=== PATIENT | female | born 1990 | race Caucasian/White ===

== ENCOUNTER → 2019-01-30 13:19 | Outpatient (CLI) | payer MEDICAID, SELFPAY ==
[2019-01-30 11:07] VITALS: BMI 48.7
[2019-02-02 15:50] LABS: HPV Reflexed? NOT INDICATED
== END ==
PROVIDERS: Family Provider Family Medicine; PCP Nurse Practitioner Adult Health; Referring Provider Obstetrics & Gynecology; Visit Provider Obstetrics & Gynecology
DX: Z12.4 Encounter for screening for malignant neoplasm of cervix (principal)
CPT/HCPCS: 87624; 88175; G0145

== ENCOUNTER 2019-02-14 12:37 | Emergency (ER) | payer MEDICAID, SELFPAY ==
[2019-01-30 11:07] VITALS: BMI 48.7
[2019-02-14 12:38] VITALS: BP 168/103; PULSE 118; RESP 20; TEMP 37.2; O2SAT 96; BMI 45.4
[2019-02-14 12:54] VITALS: BP 124/86; PULSE 106; RESP 17; O2SAT 94
[2019-02-14 13:38] LABS: Absolute Lymphocyte Count 0.82 X10^3/ul (0.83-4.51); Absolute Neutrophil Count 7.8 X10^3/uL (2.0-7.7); Hematocrit 43.9 % (37-47); Hemoglobin 15.4 g/dl (12.0-15.0); Lymphocyte # 0.82 X10^3/ul (4.0); Lymphocyte % 8.8 % (19-41); Mean Corp Hgb Conc 35.1 g/gl (32-36); Mean Corpuscular Hgb 28.8 pg (27.0-32.0); Mean Corpuscular Volume 82.2 fL (81-99); Mean Platelet Vol. 9.7 fl (6.2-12.0); Monocyte# 0.72 X10^3/uL; Monocyte% 7.7 % (0-10); Neutrophil # 7.79 X10^3/uL (2.7-7.7); Neutrophil % 83.4 % (47-70); POSITIVE COUNT NO; POSITIVE DIFFERENTIAL NO; POSITIVE MORPHOLOGY NO; Platelet Count 209 K/mm3 (150-450); RBC Distribution Width CV 13.4 % (11.6-14.6); RBC Distribution Width SD 40.1 fl (35.1-43.9); Red Blood Count 5.34 M/mm3 (4.2-5.4); White Blood Count 9.3 K/mm3 (4.4-11.0)
[2019-02-14] MEDS: Ondansetron 4 MG/2 ML Vial IV (13:39)
[2019-02-14] MEDS: 0.9% Normal Saline 1,000 ML 150 ML IV (13:39)
[2019-02-14] MEDS: Morphine 4 MG/ML Syringe IV (13:39)
[2019-02-14 13:46] LABS: AST(SGOT) 17 U/L (15-37); Alanine Aminotransfer ALT/SGPT 27 U/L (13-56); Albumin, Serum 3.9 g/dL (3.2-5.0); Alkaline Phosphatase 75 U/L (45-117); Anion Gap 9 (5-15); BUN 12 mg/dL (7-18); BUN/Creat Ratio 12.3 RATIO (10-20); Bilirubin, Direct 0.14 mg/dL (0.00-0.30); Calcium,Total 9.1 mg/dL (8.5-10.1); Chloride 107 mmol/L (98-107); Creatinine, Serum 0.98 mg/dL (0.55-1.02); EST Glomerular Filtration Rate 73 mL/min (>60); Est Glom Filt Rate - Afr Amer 88 mL/min (>60); Estimated Creatinine Clearance 78.28 ml/min; Glucose 96 mg/dL (74-106); Lipase 169 U/L (73-393); Protein, Total 8.9 g/dL (6.4-8.2); Sodium Level 136 mmol/L (136-145)
[2019-02-14 14:27] LABS: Color, Urine Yellow (Yellow); Glucose, Dipstick Normal (Normal); Ketone-Dipstick 5 mg/dl (Negative); Leukocyte Esterase-Dipstick Negative /ul (Negative); Nitrite-Dipstick Negative (Negative); Occult Blood-Urine 10 /ul (Negative); Protein-Dipstick 30 mg/dl (Negative); Specific Gravity, Urine 1.025 (1.002-1.030); Urine Bilirubin Dipstick Negative (Negative); Urine Clarity Sl. Cloudy (Clear); Urine Urobilinogen Normal (Normal)
[2019-02-14 14:37] LABS: Bacteria 1+ /hpf (None Seen); Mucous, Urine 1+ /hpf (<or=2+); Red Blood Cells-Urine 0-5 SEEN /hpf (0-5); Squamous Epithelial Cells - UA 0-5 SEEN /hpf (5-10); White Blood Cells 0-5 SEEN /hpf (0-5)
[2019-02-14 15:26] VITALS: BP 140/78; PULSE 89; RESP 15; O2SAT 97
--- NOTE | 2019-02-14 15:34 | ED.VISSUMM ---
- ER Visit Summary Date of Service: 02/14/19 Chief Complaint: Abdominal pain History of Present Illness: The patient is a 28 F with mid abdominal pain for the past 3 days. She reports nausea, vomiting, and diarrhea. She states she did a fever of 99. She went to urgent care and was sent to the emergency room. Denies urinary symptoms. She has had prior cholecystectomy and a . Physical Examination: Blood pressure is 160/103, heart rate 118, respiratory rate 20. She is afebrile. Patient sitting upright in bed no acute distress. She is nontoxic appearing. Head neck examination is unremarkable. Heart is regular rate and rhythm. Lung sounds are clear. Abdomen is soft with mild tenderness in the epigastrium. There is no tenderness over the appendix. There is no guarding or rebound. Hypoactive but present bowel sounds are noted. Test Results: CBC was normal white count 9.3 with 83% neutrophils. Hemoglobin concentrated at 15.4. Chemistry studies significant for potassium of 3. Bicarb is 20. LFTs and lipase normal. Urinalysis shows 5 ketones but no sign of acute infection. Emergency Department Course and Treatment: Patient was given morphine, Zofran, and IV fluids. She was given oral potassium replacement. Multiple repeat examinations revealed no tenderness in the right lower quadrant. She will be discharged with Zofran, Bentyl, and potassium chloride. Treatment Plan: [] Disposition: Discharge Impression: 1. Viral gastroenteritis 2. Hypokalemia This note was generated with [employer] dictation software. It may contain incorrect words, spelling, and punctuation that were not noted in review of the chart prior to signing ED Disposition - Plan for ED Patient: Disposition: Home or Assisted Living Instructions: ED Gastroenteritis Viral, ED Potassium Deficiency Prescriptions: Ondansetron [Zofran Odt] 4 mg PO Q8H PRN PRN #10 tablet PRN Reason: Nausea Dicyclomine HCl [Bentyl] 20 mg PO TIDAC #20 capsule Potassium Chloride [K-Dur] 20 meq PO BID #10 tablet Referrals: Sonia Davila MD [Primary Care Provider] - 1 Week
[2019-02-14 15:47] VITALS: BP 141/84; PULSE 85; RESP 16; O2SAT 99
== END 2019-02-14 15:47 | disposition home or self-care (01) ==
PROVIDERS: Emergency Provider Emergency Medicine; Family Provider Internal Medicine; PCP Internal Medicine
DX: A08.4 Viral intestinal infection, unspecified (principal); E87.6 Hypokalemia; Z90.49 Acquired absence of other specified parts of digestive tract
CPT/HCPCS: 80048; 80076; 81001; 83690; 85025; 96361; 96374; 96375; 99283; J7030; A4216; J2405

== ENCOUNTER 2019-08-24 14:11 | Emergency (ER) | payer MEDICAID, SELFPAY ==
[2019-08-24 14:11] VITALS: BP 137/76; PULSE 115; RESP 14; TEMP 36.1; O2SAT 97; BMI 49.9
[2019-08-24 14:36] VITALS: PULSE 119; RESP 16; O2SAT 100
[2019-08-24 14:38] LABS: Mucous, Urine 0 SEEN /hpf (<or=2+); Red Blood Cells-Urine 0 SEEN /hpf (0-5)
[2019-08-24 14:40] LABS: Color, Urine Yellow (Yellow); Glucose, Dipstick Normal (Normal); Ketone-Dipstick 5 mg/dl (Negative); Leukocyte Esterase-Dipstick 25 /ul (Negative); Nitrite-Dipstick Negative (Negative); Occult Blood-Urine Negative /ul (Negative); Protein-Dipstick Negative (Negative); Specific Gravity, Urine 1.025 (1.002-1.030); Urine Bilirubin Dipstick Negative (Negative); Urine Clarity Clear (Clear); Urine Urobilinogen Normal (Normal)
[2019-08-24 14:44] LABS: Internal QC Validated? YES +Cl - CLEAR BKGD; Pregnancy, Urine Negative Negative
[2019-08-24 14:52] LABS: Bacteria 1+ /hpf (None Seen); Squamous Epithelial Cells - UA 5-10 SEEN /hpf (5-10); White Blood Cells 0-5 SEEN /hpf (0-5)
--- NOTE | 2019-08-24 15:11 | RAD_ITS ---
STUDY: X-RAY CHEST REASON FOR EXAM: Female, 28 years old. TECHNIQUE: 2 views COMPARISON: None. FINDINGS: The lungs are clear and expanded. There is no demonstrated pleural abnormality. Normal size heart. Normal mediastinum and esha. Normal visualized pulmonary arteries. Normal visualized aortic arch and descending thoracic aorta. Normal visualized thoracic spine. Normal visualized ribs, clavicles, and shoulders. There is no demonstrated abnormality of the visualized soft tissue structures of the upper abdomen. RAD/Chest PA and Lateral IMPRESSION: Normal x-ray examination of the chest. Electronically Signed: Quan Ramirez, at 16:15 EST Tel , Service support ,
--- NOTE | 2019-08-24 15:55 | ED.VISSUMM ---
- ER Visit Summary Date of Service: 08/24/19 Chief Complaint: Abdominal pain and cough History of Present Illness: The patient is a [address] [facility]. She reports that she has suprapubic abdominal pain that began 3 days ago. Is a sharp pain 7 out of 10 currently and 10 out of 10 at worst. Is increased by laying on her back or right side. She decreased by hot bath. She reports is been nauseated, but has not vomited. She had a normal appetite. She had 4 episodes of diarrhea today. No blood in her stools or black tarry stools. No dysuria or frequency. Last menstrual period was 31 days ago. She does not have a history of irregular periods. She denies any vaginal bleeding or discharge. Patient denies sick contacts. Has not been camping out of the country. No possible bad food exposure. Does not drink well water. No recent antibiotic use. Patient also reports she has had lower back pain for the past 3 days. She denies any fall, MVA, or change in activity. She reports pain is 6 out of 10 currently 10 out of 10 at worst. Is increased movement or laying down. Is decreased hot bath. There is no radiation to her legs. No numbness, tingling, or weakness in her legs. No groin numbness. No problems with her bowels or bladder. Patient also reports she has a cough began 5 days ago. Is productive green sputum without blood. She denies any fever, chills, shortness of breath, chest pain, or other complaints at this time. Physical Examination: Vitals: Stable. Afebrile. General: Well-nourished and well-developed. Head: Normocephalic atraumatic. Neck: Supple, no lymphadenopathy. No JVD. Nontender. Cardiovascular: Regular rate and rhythm. No murmurs. Respiratory: No respiratory distress. Clear to auscultation bilaterally. Abdominal: Soft, mild suprapubic tenderness to palpation, nondistended, normal bowel sounds. No guarding, rebound, or peritoneal signs. Back: Mild diffuse tenderness palpation over the lumbar spine and paraspinous muscular and lumbar region bilaterally. Negative straight leg raise bilaterally. 5 out of 5 dorsiflexion, plantar flexion, extensor longus longus bilaterally. Normal sensation light touch throughout. Extremities: Nontender, no edema. Skin: Normal color, no rash. Neurologic: Alert and oriented ?3. Cranial nerves II through XII are intact. Normal strength and sensation. Psych: Normal affect. Test Results: Patency test is negative. Urinalysis is negative. Chest x-ray shows no acute disease. Emergency Department Course and Treatment: Patient refused pain or nausea medications. She is resting comfortably. Treatment Plan: Patient be discharged with symptomatic care. She refused pain or nausea medicine for home. Instructed to push fluids. Follow-up with her primary care physician 1 to 2 days if not improving. Return to the emergency department for any worsening symptoms. Disposition: To home in improved and stable condition. Impression: 1. Abdominal pain, uncertain cause. 2. Low back pain ,acute. 3. URI. This note was generated with [employer] dictation software. It may contain incorrect words, spelling, and punctuation that were not noted in review of the chart prior to signing ED Disposition - Plan for ED Patient: Instructions: ABDOMINAL PAIN, Unknown Cause, (Female), URI, Viral, No Abx (Adult) Referrals: Sonia Davila MD [Primary Care Provider] - 1-2 Days if not improving
[2019-08-24 16:13] VITALS: PULSE 105; RESP 16; O2SAT 98
[2019-08-24 16:14] VITALS: RESP 16
--- NOTE | 2019-08-24 16:14 | ED.RN ---
REVIEWED D/C INSTRUCTIONS, FOLLOW UP CARE, AND S/S THAT WOULD WARRANT A RETURN TO THE ED WITH PT. PT VERBALIZED AN UNDERSTANDING AND DENIES FURTHER QUESTIONS FOR THIS RN. PT SKIN P/W/D, RESP EVEN AND UNLABORED, PT A&O X 3, NO DISTRESS NOTED. PT AMBULATED OUT OF ED, GAIT STEADY.
== END 2019-08-24 16:15 | disposition home or self-care (01) ==
LOC: ED 14:58
PROVIDERS: Emergency Medicine; Emergency Provider Emergency Medicine; Family Provider Internal Medicine; PCP Internal Medicine
DX: R10.9 Unspecified abdominal pain (principal); M54.5 Low back pain; J06.9 Acute upper respiratory infection, unspecified; J45.909 Unspecified asthma, uncomplicated; Z90.49 Acquired absence of other specified parts of digestive tract; R19.7 Diarrhea, unspecified; R11.0 Nausea
CPT/HCPCS: 71046; 81001; 81025; 99282

== ENCOUNTER 2020-04-25 17:05 | Outpatient (CLI) | payer MEDICAID, SELFPAY ==
[2019-10-17 13:16] VITALS: BMI 49.9
[2020-04-25 17:28] VITALS: BMI 52.6
[2020-04-25 17:31] VITALS: BP 135/64; TEMP 37
[2020-04-25 17:32] VITALS: PULSE 120; O2SAT 96
[2020-04-25 17:54] LABS: Color, Urine Yellow (Yellow); Glucose, Dipstick Normal (Normal); Ketone-Dipstick Negative (Negative); Leukocyte Esterase-Dipstick 25 /ul (Negative); Nitrite-Dipstick Negative (Negative); Occult Blood-Urine Negative /ul (Negative); Protein-Dipstick Negative (Negative); Urine Bilirubin Dipstick Negative (Negative); Urine Clarity Clear (Clear); Urine Urobilinogen Normal (Normal)
--- NOTE | 2020-04-25 18:27 | OB.TRI.HP_ITS ---
- Problem List (1) Pelvic pressure in Status: Acute (2) 34 weeks gestation of Status: Acute History of Present Illness Date of Service: 04/25/20 Reason For Visit: PELVIC PRESSURE Date of Service: 04/25/20 Final DION: 06/02/20 Gestational age: 34 Weeks and 4 Days History of Present Illness: Patient is at 34.4 weeks gestation that is is repeat c/s that presents with increased pelvic pressure and pain starting today around 1600. Denies any loss of fluid, vaginal bleeding or cramping. Stated just feels lower pelvic heaviness. Positive movement. Allergies codeine Adverse Reaction (Verified 08/24/19 14:15) Other hallucinations - Pertinent Past Medical History Medical History: Past Medical History (Last Reviewed 01/30/19 @ 11:06 by Graciela Crandall) PCOS (polycystic ovarian syndrome) Surgical History: Past Surgical History (Last Reviewed 01/30/19 @ 11:06 by Graciela Crandall) delivery delivered H/O knee surgery History of tonsillectomy gallbladder surgery Laboratory Studies: Laboratory Tests 04/25/20 Range/Units 17:20 Urine Color Yellow (Yellow) Urine Clarity Clear (Clear) Urine pH 5.0 (5.0 - 8.0) Ur Specific [place] 1.030 (1.002-1.030) Urine Protein Negative (Negative) mg/dl Urine Glucose (UA) Normal (Normal) mg/dl Urine Ketones Negative (Negative) mg/dl Urine Occult Blood Negative (Negative) /ul Urine Nitrite Negative (Negative) Urine Bilirubin Negative (Negative) mg/dL Urine Urobilinogen Normal (Normal) mg/dl Ur Leukocyte Esterase 25 H (Negative) /ul Review of Systems Constitutional: Denies: Anorexia, Fever Eyes: Denies: Blurred vision Cardiovascular: Denies: Chest Pain Respiratory: Denies: Cough, Shortness of Breath Genitourinary: Reports: Frequency Neurological: Denies: Blurred vision, Headaches Physical Exam Vitals: Vital Signs Pulse BP Pulse Ox 120 H 135/64 H 96 04/25/20 17:32 04/25/20 17:31 04/25/20 17:32 General: Alert, Oriented x3 Cardiovascular: Regular rate Lungs: Normal air movement Abdomen: Soft, Non Tender, Gravid Neurological: Cranial nerves II-XII grossly intact NST - FHR Rate Baby A Baseline: 140 Variability:: Moderate Accelerations:: 15 x 15 Decelerations:: None NST Reactive:: Yes FHR Category:: Category I Uterine Activity:: No contractions noted Impression/Plan at 34.4 weeks gestation with pelvic pressure NST- reactive and category 1 No contractions seen via TOCO or palpated UA sent - Positive for Leuk Esterase/ Sent for culture Will treat with Macrobid 100 mg PO BID x 7 days Increase fluid intake Discharge home and follow up in office Patient agrees with plan of care
== END 2020-04-25 18:30 | disposition home or self-care (01) ==
LOC: WPOUT 17:06 → WP 17:07
PROVIDERS: PCP Internal Medicine; Referring Provider Advanced Practice Midwife; Visit Provider Advanced Practice Midwife
DX: O99.283 Endocrine, nutritional and metabolic diseases complicating pregnancy, third trimester (principal); E28.2 Polycystic ovarian syndrome; Z3A.34 34 weeks gestation of pregnancy; Z88.5 Allergy status to narcotic agent
CPT/HCPCS: 59025; 59050; 81002; 87086; 87088; 99218; G0378

== ENCOUNTER 2020-05-08 11:27 | Emergency (ER) | payer MEDICAID, SELFPAY ==
[2020-05-08 11:28] VITALS: BP 152/84; PULSE 119; RESP 19; TEMP 36.3; O2SAT 95; BMI 53.8
--- NOTE | 2020-05-08 12:01 | ED.DCSUM_ITS ---
- ER Visit Summary Date of Service: 05/08/20 Chief Complaint: [Injury to right small finger] History of Present Illness: The patient is a 29 F [presents to the emergency department for laceration to her right small finger that occurred about 10 minutes prior to arrival in the emergency department. Patient states that she try to catch a glass that was falling and it shattered and the glass cut her finger. Patient is up-to-date on tetanus. 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 Patient has one other child and did not have any complications with that .] Physical Examination: [Right small finger-patient has a 1.5 cm laceration to the volar aspect of the distal phalanx pulp. There is some brisk bleeding noted from the wound. She is neurovascular intact distally. She has normal range of motion at the DIP and PIP joints against resistance.] Test Results: [Indicated] Emergency Department Course and Treatment: [Duration repair-patient had finger sterilely draped and prepped. Wound anesthetized locally with 2% lidocaine via digital block with a total of 6 cc. Patient had good anesthesia. Wound was cleansed with Shur-Clens and irrigated with copious saline. I did use a turnicot to obtain good hemostasis. The wound was inspected and no foreign bodies noted within the wound. There is no evidence of any tendon involvement. Using 5-0 nylon a total of 3 single ruptured sutures placed with good wound edge approximation. Patient tired procedure well. Clean dressing applied.] Treatment Plan: [] Patient to follow-up with primary care physician in 10 days for suture removal. Patient advised to return if increasing pain, redness, swelling, purulent drainage, or condition should worsen anyway. Disposition: [Discharged home in stable condition] Impression: [Right small finger laceration 1.5 cm-simple repair] This note was generated with [employer] dictation software. It may contain incorrect words, spelling, and punctuation that were not noted in review of the chart prior to signing ED Disposition - Plan for ED Patient: Referrals: Sonia Davila MD [Primary Care Provider] -
--- NOTE | 2020-05-08 12:04 | ED.DEP ---
ED Disposition - Plan for ED Patient: Instructions: ED Laceration Hand Referrals: Sonia Davila MD [Primary Care Provider] - 10 Day for suture removal
[2020-05-08 12:24] VITALS: RESP 18
== END 2020-05-08 12:20 | disposition home or self-care (01) ==
LOC: ED 12:21
PROVIDERS: Emergency Provider Emergency Medicine; PCP Internal Medicine
DX: O9A.211 Injury, poisoning and certain other consequences of external causes complicating pregnancy, first trimester (principal); S61.216A Laceration without foreign body of right little finger without damage to nail, initial encounter; O21.9 Vomiting of pregnancy, unspecified; W25.XXXA Contact with sharp glass, initial encounter; Z3A.01 Less than 8 weeks gestation of pregnancy
CPT/HCPCS: 12001; 80053; 84550; 85025; 86850; 86900; 86901; J7120; A4216; J2405

== ENCOUNTER 2020-05-09 08:39 | Inpatient (IN) | payer MEDICAID, SELFPAY ==
[2019-10-17 13:16] VITALS: BMI 49.9
[2020-05-08 11:28] VITALS: BMI 53.8
[2020-05-08 21:08] VITALS: BP 135/78; PULSE 118
[2020-05-08 21:09] VITALS: PULSE 114; O2SAT 96
[2020-05-08 21:10] VITALS: TEMP 37
[2020-05-08 21:17] VITALS: BMI 53.4
[2020-05-08] MEDS: 0.9% Saline Lock 10 ML Syringe IV ×3 (21:52→23:34)
[2020-05-08] MEDS: Acetaminophen 500 MG Tablet PO (21:57)
[2020-05-08 22:01] VITALS: BP 130/78; PULSE 115
[2020-05-08 22:02] LABS: Absolute Lymphocyte Count 1.81 X10^3/uL (0.83-4.51); Absolute Neutrophil Count 7.2 X10^3/uL (2.0-7.7); Basophil# 0.02 X10^3/uL; Basophil% 0.2 % (0-1); Eosinophil# 0.08 X10^3/uL; Eosinophils% 0.8 % (0-5); Hematocrit 35.4 % (37-47); Hemoglobin 11.7 g/dL (12.0-15.0); Lymphocyte # 1.81 X10^3/ul (4.0); Lymphocyte % 18.1 % (19-41); Mean Corp Hgb Conc 33.1 g/dL (32-36); Mean Corpuscular Hgb 27.6 pg (27.0-32.0); Mean Corpuscular Volume 83.5 fL (81-99); Mean Platelet Vol. 10.4 fl (6.2-12.0); Monocyte# 0.71 X10^3/uL; Monocyte% 7.1 % (0-10); NRBC Flagged by Analyzer 0 % (0-5); Neutrophil # 7.24 X10^3/uL (2.7-7.7); Neutrophil % 72.3 % (47-70); Platelet Count 228 K/mm3 (150-450); RBC Distribution Width CV 15.5 % (11.6-14.6); RBC Distribution Width SD 46.4 fl (35.1-43.9); Red Blood Count 4.24 M/mm3 (4.2-5.4)
[2020-05-08] MEDS: Mag Hydrox/Al Hydrox/Simeth 30 ML UDC PO (22:04)
[2020-05-08 22:19] LABS: ALB/GLOB Ratio 0.7 RATIO (0.9-2.4); AST(SGOT) 9 U/L (15-37); Alanine Aminotransfer ALT/SGPT 15 U/L (13-56); Albumin, Serum 2.7 g/dL (3.2-5.0); Alkaline Phosphatase 111 U/L (45-117); Anion Gap 10 (5-15); BUN 6 mg/dL (7-18); Calcium,Total 8.6 mg/dL (8.5-10.1); Chloride 110 mmol/L (98-107); EST Glomerular Filtration Rate 203 mL/min (>60); Est Glom Filt Rate - Afr Amer 246 mL/min (>60); Estimated Creatinine Clearance 182.43 ml/min; Globulin 3.9 g/dL (2.2-4.2); Glucose 103 mg/dL (74-106); Potassium 3.2 mmol/L (3.5-5.1); Protein, Total 6.6 g/dL (6.4-8.2); Sodium Level 142 mmol/L (136-145); Uric Acid 4.7 mg/dL (2.6-6.0)
[2020-05-08] MEDS: proMETHazine 25 MG/ML Syringe 12.5 MG IV (23:30)
[2020-05-08 23:38] VITALS: BP 111/58; PULSE 102; PULSE 103; RESP 20; TEMP 36.9; O2SAT 95
[2020-05-09] VITALS (33 sets, daily range): BP systolic 104–139; BP diastolic 52–76; PULSE 90–113; RESP 12–18; TEMP 36.2–37.4; O2SAT 75–100
[2020-05-09] MEDS: Acetaminophen 500 MG Tablet 1000 MG PO ×3 (03:59→21:25)
[2020-05-09] MEDS: proMETHazine 25 MG/ML Syringe 12.5 MG IV (05:40)
[2020-05-09] MEDS: 0.9% Saline Lock 10 ML Syringe IV ×3 (05:40→21:28)
[2020-05-09 06:22] LABS: Absolute Lymphocyte Count 1.73 X10^3/uL (0.83-4.51); Absolute Neutrophil Count 5.8 X10^3/uL (2.0-7.7); Basophil# 0.03 X10^3/uL; Basophil% 0.4 % (0-1); Eosinophils% 1.2 % (0-5); Hematocrit 33.5 % (37-47); Lymphocyte # 1.73 X10^3/ul (4.0); Lymphocyte % 20.5 % (19-41); Mean Corp Hgb Conc 32.8 g/dL (32-36); Mean Corpuscular Hgb 27.1 pg (27.0-32.0); Mean Corpuscular Volume 82.5 fL (81-99); Mean Platelet Vol. 10.1 fl (6.2-12.0); Monocyte# 0.66 X10^3/uL; Monocyte% 7.8 % (0-10); NRBC Flagged by Analyzer 0 % (0-5); Neutrophil # 5.79 X10^3/uL (2.7-7.7); Neutrophil % 68.4 % (47-70); Platelet Count 195 K/mm3 (150-450); RBC Distribution Width CV 15.4 % (11.6-14.6); RBC Distribution Width SD 45.7 fl (35.1-43.9); Red Blood Count 4.06 M/mm3 (4.2-5.4); White Blood Count 8.5 K/mm3 (4.4-11.0)
[2020-05-09 06:57] LABS: ALB/GLOB Ratio 0.7 RATIO (0.9-2.4); AST(SGOT) 8 U/L (15-37); Alanine Aminotransfer ALT/SGPT 12 U/L (13-56); Albumin, Serum 2.6 g/dL (3.2-5.0); Alkaline Phosphatase 101 U/L (45-117); Anion Gap 7 (5-15); BUN 7 mg/dL (7-18); BUN/Creat Ratio 17.6 RATIO (10-20); Calcium,Total 8.5 mg/dL (8.5-10.1); Chloride 109 mmol/L (98-107); EST Glomerular Filtration Rate 205 mL/min (>60); Est Glom Filt Rate - Afr Amer 247 mL/min (>60); Estimated Creatinine Clearance 182.43 ml/min; Globulin 3.7 g/dL (2.2-4.2); Glucose 92 mg/dL (74-106); Potassium 3.2 mmol/L (3.5-5.1); Protein, Total 6.3 g/dL (6.4-8.2); Sodium Level 139 mmol/L (136-145); Uric Acid 5.1 mg/dL (2.6-6.0)
[2020-05-09] MEDS: Lactated Ringers 1,000 ML 999 ML IV (08:48)
[2020-05-09] MEDS: Sodium Citrate/Citric Acid 30 ML UDC PO (09:14)
--- NOTE | 2020-05-09 10:29 | OP.PCM_ITS ---
Delivery Classification: Scheduled Final DION: 06/02/20 Final DION Source: US <20 weeks Gestational age: 36 Weeks and 4 Days counter stitcher: Robbie Keen Type of Anesthesia:: Spinal Special Medications: none Implants Used: none Date of Procedure: 05/09/20 Pre-Operative Diagnosis: 36 week high risk pregancy, previous c/s, preeclampsia with severe feature, breech Post-Operative Diagnosis: same Description of Procedure: The patient was taken to the operating room. She was prepped and draped in the dorsal supine position with a leftward tilt. Cohen straps were used to help retract the maternal pannus. A Pfannenstiel skin incision was made through her previous incision and carried through to underlying layer fascia with the scalpel. The fascia was incised incised in the midline and extended laterally with the Rothman scissors. The fascia was dissected off the rectus muscles with blunt and sharp dissection. Some bleeding blood vessels were clamped and bovied as we needed to help maintain hemostasis as well as possible in an efficient man ner. The rectus muscles were in the midline and the peritoneum was entered bluntly. The peritoneal incision was stretched and the bladder blade was placed. Fetus was palpated and confirmed to be breech. I then made small incisions on both sides of the rectus muscles to allow more room for delivery. When adequate room was obtained, the Gian O retractor size large was placed in the maternal abdomen, care was taken to ensure no maternal organs were trapped underneath. It was secured. The uterine incision was made in a low transverse fashion with the scalpel and extended superiorly and inferiorly with blunt dissection. The amniotic membranes were ruptured bluntly and clear amniotic fluid returned. The infant's breech was brought to the incision and delivered. The legs were swept out individually. A towel was placed around the abdomen and the arms were swept out individually. The head was then easily able to be delivered with fundal pressure and my hand placed on the head to keep it flexed. The cord was clamped and cut as the was stimulated. Cord clamping was delayed only 30 seconds. The infant was handed off to the waiting nursing staff. The placenta was delivered with fundal massage and gentle traction in the standard fashion. The uterus left in the peritoneal cavity and cleared of all clots and debris. The cervix was dilated with a ring forcep. The uterine incision was closed with #1 Vicryl in a running locked fashion. A second layer of the same suture was used in an imbricating fashion. [id number] sutures were needed to obtain hemostasis. The incision was examined and was found to be hemostatic. Wrist was placed over this layer. The Gian O retractor was removed. The uterus was placed back into the peritoneal cavity and hemostasis was again confirmed. The rectus muscles were examined and any bleeding was Bovie cauterized. The parietal peritoneum and rectus muscles were closed en bloc with an 0 Vicryl running suture. R[place]ow was placed over every layer as we proceeded and care was taken to obtain excellent hemostasis. The surgical teams outer gloves were then changed. The rectus fascia was examined and any bleeding was Bovie cauterized and the rectus fascia was closed with 1 PDS looped suture in a running standard fashion. The subcutaneous tissue was examining and any bleeding was Bovie cauterized. The subcutaneous tissue was reapproximated with 3-0 Vicryl suture. The skin was closed in a subcuticular fashion by the LOG DATA TECHNICIAN with me present in the labor and delivery suite. I performed the remainder of the procedure with assistance. All sponge, lap, and needle counts were correct. The patient was taken to her room for recovery in a stable condition. Amniotic Membrane Rupture Type: Artificial Amniotic Fluid Description: Clear Placenta Disposition: Sent to Pathology Drain: Rudolph to straight drain Fluids Replaced: 1400 Cord Entanglement: Around neck x 1, loose Nuchal Cord Compression: Without compression Cord Vessel Description: 3 Vessels Esitmated Blood Loss (ml): 1000 Infant Gender: Male Delayed cord clamping: Yes Antibiotic Given: Ancef 3 grams IV x1, Zithromax 500 mg/5 mL X1 Complications: None - Admit VTE Documentation VTE Present on Admission: No VTE Mechan Device Prophylaxis: SCD's VTE Pharm Prophylaxis ordered?: Yes
[2020-05-09] MEDS: Oxytocin 30 units/NS 500 ml 30 UNITS/500 ML IV.SOLN 167 UNITS IV (10:45)
--- NOTE | 2020-05-09 11:46 | HP.PCM_ITS ---
History Date of Admission: 05/08/20 Final DION: 06/02/20 Final DION Source: US <20 weeks Gestational age: 36 Weeks and 4 Days History of this : This is a 29 year-old 2 para 1 admitted on 05/08/2020 with complaints of a headache. She was seen in earlier in the office that day and her blood pressure was found to be mildly elevated. She had preeclampsia labs drawn. She had no evidence of preeclampsia at that time. She then went into the emergency room to have her finger sutured and complained of some increased blood pressure. She then arrived to labor and delivery later that evening complaining of a severe headache of 9 out of 10 despite taking 500 mg of Tylenol. She also complained of nausea without emesis, and some right upper quadrant pain. She states that it would last 10 seconds at a time and be sharp and stabbing. Overnight, the patient said she had trouble sleeping for more than 4 hours because of her headache. She reports a global headache and she feels like it is throbbing and pounding. She continues to have mid upper abdominal pains that are sharp and stabbing intermittently for 10 seconds. She denies being hungry and still has some mild nausea. She has not had any emesis. Denies any diarrhea or const ipation. She is had good movement. She states that her headache remains an 8 or 9 out of 10 this morning and when I walk in the room and start talking to her she becomes tearful. Medical History: Medical History (Last Reviewed 01/30/19 @ 11:06 by Graciela Crandall) PCOS (polycystic ovarian syndrome) E28.2 Surgical History: Surgical History (Last Reviewed 01/30/19 @ 11:06 by Graciela Crandall) delivery delivered O82 H/O knee surgery Z98.890 History of tonsillectomy Z98.890, Z90.89 gallbladder surgery Allergies codeine Adverse Reaction (Verified 05/08/20 11:28) Other hallucinations Home Medications: Home Medications Pnv No.95/Ferrous Fum/Folic AC [ Caplet] 1 ea PO DAILY 08/24/19 Famotidine [Pepcid] 20 mg PO PRN PRN 04/25/20 Loratadine [Claritin] 10 mg PO DAILY 04/25/20 Smoking Status: Never smoker Number of Fetus(es): 1 NST - FHR Rate Baby A Baseline: normal Variability:: Moderate Accelerations:: 15 x 15 Decelerations:: None NST Reactive:: Yes FHR Category:: Category I Uterine Activity:: quiet History Past Pregnancies: Past Pregnancies Delivery Date Name GA/ Weeks Outcome Route Wt Infant Sex Labor Length Anesthesia Delivery Location Provider FOB Expected Infant Delivery Method: Scheduled Section Review of Systems Constitutional: Denies: Chills, Fever Eyes: Reports: Blurred vision Cardiovascular: Denies: Chest Pain Respiratory: Denies: Cough, Shortness of Breath Gastrointestinal: Reports: Abdominal Pain, Nausea. Denies: Vomiting Genitourinary: Denies: Dysuria, Frequency Gynecological: Denies: Breast symptoms Skin: Denies: Rash Neurological: Reports: Headaches. Denies: Balance problems, Blurred vision, Ch thien in Speech, Slurred speech, Confusion, Seizures Hematologic/ Lymphatic: Denies: Anemia Physical Exam Vitals: Vital Signs Temp Pulse Resp BP Pulse Ox 97.2 F L 104 H 14 116/60 93 05/09/20 11:00 05/09/20 11:00 05/09/20 11:00 05/09/20 11:00 05/09/20 11:00 General: Alert, Cooperative, No apparent distress Cardiovascular: Regular rate Lungs: Normal air movement Abdomen: Soft, Non Tender, Non-Distended, Gravid, - - large for gestational age Neurological: Cranial nerves II-XII grossly intact, - - DTRs 1+. Negative for: Neuro grossly intact, Facial Droop, Slurred Speech, Clonus BIOFUELS PROCESSING TECHNICIAN: Normal external genitalia Estimated gestational size: Appropriate for gestational size Presentation: Breech Assessment/Plan All Active Problems (Last Reviewed 01/30/19 @ 11:06 by Graciela Crandall) Pelvic pressure in (Acute) 34 weeks gestation of (Acute) Pre-employment examination (Acute) Upper abdominal pain (Acute) Nausea and vomiting (Acute) This is a 29 year-old, 2 para 1 with morbid obesity with BMI 53, diagnosed with gestational hypertension yesterday. However, in light of patient's severe headache the working diagnosis will be preeclampsia with severe features. Though patient is late , I discussed with her risk benefits and alternatives to her repeat section including risks of prematurity. However, in light of her persistent severe headache, the prudent thing to deliver because of risk of preeclampsia outweigh the risks of prematurity. The patient's questions were answered to her satisfaction, consent was signed and she desired to proceed.
[2020-05-09] MEDS: Lactated Ringers 1,000 ML 50 ML IV (12:40)
[2020-05-09] MEDS: Magnesium Sulfate 4gm/100mL 4 GM/100 ML IV.SOLN. IV (12:40)
[2020-05-09] MEDS: Magnesium Sulfate 4gm/100mL 2 GM/50 ML IV.SOLN. IV (13:00)
[2020-05-09] MEDS: Magnesium Sulfate 20 GM/500 ML BAG IV ×2 (13:10→22:08)
[2020-05-09] MEDS: Ketorolac 30 MG/ML Syringe IV ×2 (16:26→21:27)
--- NOTE | 2020-05-09 20:23 | NURSING ---
1999- Pt. reported drinking a cranberry juice and Coke with her dinner when this RN questioned her oral input from the past hour. That total was approx. 320 mL. This RN educated the importance of oral fluid restriction of 100mL that the doctor ordered. Volutainer was given to pt. to more accurately measure 100mL of fluids per hour. Pt. verbalizes understanding. This RN will continue to monitor strict I&Os.
[2020-05-09] MEDS: Enoxaparin 40 MG/0.4 ML Syringe SC (21:28)
[2020-05-10] VITALS (13 sets, daily range): BP systolic 97–131; BP diastolic 41–79; PULSE 81–97; RESP 15–18; TEMP 36.1–36.4; O2SAT 95–100
[2020-05-10] MEDS: Acetaminophen 500 MG Tablet 1000 MG PO ×4 (03:10→21:36)
[2020-05-10] MEDS: Ketorolac 30 MG/ML Syringe IV ×2 (03:11→09:14)
[2020-05-10] MEDS: 0.9% Saline Lock 10 ML Syringe IV ×4 (03:11→19:51)
--- NOTE | 2020-05-10 04:21 | NURSING ---
0421: Failed attempt at CBC draw, lab called to assist.
[2020-05-10] MEDS: Lactated Ringers 1,000 ML 50 ML IV (06:44)
[2020-05-10] MEDS: Magnesium Sulfate 20 GM/500 ML BAG IV (07:20)
[2020-05-10 08:30] LABS: Hematocrit 31.9 % (37-47); Hemoglobin 10.5 g/dL (12.0-15.0); Mean Corp Hgb Conc 32.9 g/dL (32-36); Mean Corpuscular Hgb 27.4 pg (27.0-32.0); Mean Corpuscular Volume 83.3 fL (81-99); Mean Platelet Vol. 10.7 fl (6.2-12.0); Platelet Count 219 K/mm3 (150-450); RBC Distribution Width CV 15.6 % (11.6-14.6); RBC Distribution Width SD 46.5 fl (35.1-43.9); Red Blood Count 3.83 M/mm3 (4.2-5.4); White Blood Count 10.7 K/mm3 (4.4-11.0)
--- NOTE | 2020-05-10 08:35 | PCM.PN.OB ---
Subjective: Patient seen at bedside. Sitting up dangling feet. Rudolph removed and patient voided without difficulty. Denies any headaches, vision changes or right upper gastric pain. Stated feels better when she can get up and walk around. Objective: BP's throughout night have been within normal range. BP this morning 131/78. - Physical Exam Vitals/I&O's: Vital Signs Temp Pulse Resp BP Pulse Ox 97.2 F L 93 15 116/66 99 05/10/20 06:00 05/10/20 07:20 05/10/20 07:20 05/10/20 07:20 05/10/20 07:20 Oxygen Flow Rate (L/min) 2 Oxygen Delivery Method Room Air Weight: 311 lb 6.4 oz Body Mass Index (BMI) 53.4 Intake and Output for Last 24 Hours 05/08/20 05/09/20 05/10/20 23:59 23:59 23:59 Intake Total 3197.72 / 3247.72 1380.00 / 1380.00 Output Total 1180 / 1205 300 / 300 Balance 2017.72 / 2042.72 1080.00 / 1080.00 General: Alert, Oriented x3, Cooperative, No apparent distress Lungs: Clear to auscultation, Normal air movement Cardiovascular: Regular rate, Regular Rhythm Abdomen: Soft, Non Tender, Passing Flatus, Obese, - - Dressing is dry and intact Extremities: Capillary Refill Less than 3 Seconds, No Calf Tenderness, Edema - +2 edema lower and upper bilateral extremities Skin: No rashes Musculoskeletal: No Tenderness to Palpation of Joints or Extremities Neurological: Cranial nerves II-XII grossly intact Psych/Mental Status: Appropriate Laboratory Results 05/10/20 08:15: WBC 10.7, RBC 3.83 L, Hgb 10.5 L, Hct 31.9 L, MCV 83.3, MCH 27.4, MCHC 32.9, RDW Std Deviation 46.5 H, RDW Coeff of Delfino 15.6 H, Plt Count 219, MPV 10.7 Current Medications Acetaminophen (Tylenol) 1,000 mg PO Q6H [facility] Last Admin: 05/10/20 03:10 Dose: 1,000 mg Documented by: Bisacodyl (Dulcolax) 10 mg RECTAL UD PRN PRN Reason: If no BM Diphenhydramine HCl (Benadryl) 25 mg PO Q6H PRN PRN PRN Reason: ITCHING Stop: 05/10/20 10:52 Enoxaparin Sodium (Lovenox) 40 mg SC BID [facility] Last Admin: 05/09/20 21:28 Dose: 40 mg Documented by: Hydrocortisone (Hytone) 1 applic TOPICAL TID PRN PRN; Protocol PRN Reason: Discomfort Lactated Ringer's () 1,000 mls @ 100 mls/hr IV .Q10H [facility] Last Admin: 05/10/20 06:44 Dose: 50 mls/hr Documented by: Naloxone HCl 4 mg/ Dextrose 504 mls @ 0 mls/hr IV .Q0M PRN; Protocol PRN Reason: Respiratory depression Calcium Gluconate 1 gm/ N/A 10 mls @ 2 mls/min IV X1 PRN PRN Reason: Magnesium Toxicity Magnesium Sulfate (20gm/500ml) 20 gm in 500 mls @ 50 mls/hr IV .Q10H [facility]; Protocol Last Admin: 05/10/20 07:20 Dose: 2 gm/hr, 50 mls/hr Documented by: Ibuprofen (Motrin) 600 mg PO Q6H [facility] Ketorolac Tromethamine (Toradol (Bkc)) 30 mg IV Q6H [facility] Stop: 05/10/20 09:01 Last Admin: 05/10/20 03:11 Dose: 30 mg Documented by: Methylergonovine Maleate (Methergine) 0.2 mg IM X1 PRN PRN Reason: Uterine Atony Midazolam HCl (Versed) 2 mg IV X1 PRN PRN Reason: Seizure Activity Nalbuphine HCl (Nubain) 5 mg IV Q3H PRN PRN PRN Reason: ITCHING Stop: 05/10/20 10:52 Naloxone HCl (Narcan) 0.02 mg IV Q1M PRN PRN Reason: RR <10 and pt unresponsive Ondansetron HCl (Zofran) 4 mg IV Q4H PRN PRN PRN Reason: Nausea Oxycodone HCl (Oxyir) 5 - 10 mg PO Q4H PRN PRN PRN Reason: Pain Score 4-10/10 Prochlorperazine Edisylate (Compazine Iv) 10 mg IV Q6H PRN PRN PRN Reason: NAUSEA Senna/Docusate Sodium (Senokot-S, Dedra-Colace) 0 tablet PO DAILY [facility] Last Admin: 05/09/20 11:05 Dose: Not Given Documented by: Simethicone (Mylicon) 80 mg PO PCHS PRN PRN Reason: Indigestion/stomach pain Sodium Chloride () 5 - 15 ml IV UD PRN PRN Reason: SALINE FLUSH Last Admin: 05/10/20 03:11 Dose: 10 ml Documented by: Medical Necessity - Tobacco Use Smoking Status: Never smoker Assessment/Plan All Active Problems (Last Reviewed 01/30/19 @ 11:06 by Graciela Crandall) Pelvic pressure in (Acute) 34 weeks gestation of (Acute) Pre-employment examination (Acute) Upper abdominal pain (Acute) Nausea and vomiting (Acute) A/P Post op primary C/S day 1 Pain controlled BP's have been within normal ranges Stop Magnesium Sulfate Routine care
[2020-05-10] MEDS: Senna/Docusate Sodium 1 Tablet PO (09:13)
[2020-05-10] MEDS: Enoxaparin 40 MG/0.4 ML Syringe SC ×2 (09:30→21:35)
[2020-05-10] MEDS: Ibuprofen 600 MG Tablet PO ×2 (15:37→21:36)
[2020-05-10] MEDS: oxyCODONE 5 MG Tablet PO (19:51)
[2020-05-11 01:03] VITALS: BP 131/81; PULSE 90; RESP 16; TEMP 36.4
[2020-05-11] MEDS: Ibuprofen 600 MG Tablet PO ×2 (04:02→10:18)
[2020-05-11] MEDS: Acetaminophen 500 MG Tablet 1000 MG PO ×2 (04:02→10:19)
[2020-05-11 08:00] VITALS: BP 139/81; PULSE 98; RESP 16; TEMP 36.4; O2SAT 97
--- NOTE | 2020-05-11 09:45 | PN.OBGYN_ITS ---
Subjective: Patient seen at bedside. Sitting up in chair eating breakfast tray. Stated feeling better since Magnesium Sulfate stopped. Ambulating and voiding without difficulty. Pain is controlled with Motrin and Tylenol. Lochia is mild. Passing flatus. Requesting discharge home today to go see at [facility]. Objective: Dressing Dry and intact BP's throughout night are within normal range - Physical Exam Vitals/I&O's: Vital Signs Temp Pulse Resp BP Pulse Ox 97.6 F L 90 16 131/81 H 100 05/11/20 01:03 05/11/20 01:03 05/11/20 01:03 05/11/20 01:03 05/10/20 09:05 Oxygen Flow Rate (L/min) 2 Oxygen Delivery Method Room Air Weight: 311 lb 6.4 oz Body Mass Index (BMI) 53.4 Intake and Output for Last 24 Hours 05/09/20 05/10/20 05/11/20 23:59 23:59 23:59 Intake Total 3197.72 / 3247.72 1676.66 / 1676.66 Output Total 1180 / 1205 700 / 700 Balance 2017.72 / 2042.72 976.66 / 976.66 General: Alert, Oriented x3 HEENT: Atraumatic Oral: Moist Mucosa Lungs: Normal air movement Abdomen: Soft, Non Tender, Passing Flatus, Obese Skin: No rashes, No breakdown Neurological: Cranial nerves II-XII grossly intact Psych/Mental Status: Normal Affect, Appropriate Current Medications Acetaminophen (Tylenol) 1,000 mg PO Q6H [facility] Last Admin: 05/11/20 04:02 Dose: 1,000 mg Documented by: Bisacodyl (Dulcolax) 10 mg RECTAL UD PRN PRN Reason: If no BM Enoxaparin Sodium (Lovenox) 40 mg SC BID [facility] Last Admin: 05/10/20 21:35 Dose: 40 mg Documented by: Hydrocortisone (Hytone) 1 applic TOPICAL TID PRN PRN; Protocol PRN Reason: Discomfort Naloxone HCl 4 mg/ Dextrose 504 mls @ 0 mls/hr IV .Q0M PRN; Protocol PRN Reason: Respiratory depression Ibuprofen (Motrin) 600 mg PO Q6H [facility] Last Admin: 05/11/20 04:02 Dose: 600 mg Documented by: Methylergonovine Maleate (Methergine) 0.2 mg IM X1 PRN PRN Reason: Uterine Atony Naloxone HCl (Narcan) 0.02 mg IV Q1M PRN PRN Reason: RR <10 and pt unresponsive Ondansetron HCl (Zofran) 4 mg IV Q4H PRN PRN PRN Reason: Nausea Oxycodone HCl (Oxyir) 5 - 10 mg PO Q4H PRN PRN PRN Reason: Pain Score 4-10/10 Last Admin: 05/10/20 19:51 Dose: 5 mg Documented by: Prochlorperazine Edisylate (Compazine Iv) 10 mg IV Q6H PRN PRN PRN Reason: NAUSEA Senna/Docusate Sodium (Senokot-S, Dedra-Colace) 0 tablet PO DAILY [facility] Last Admin: 05/10/20 09:13 Dose: 2 tablet Documented by: Simethicone (Mylicon) 80 mg PO PCHS PRN PRN Reason: Indigestion/stomach pain Last Admin: 05/10/20 09:14 Dose: 80 mg Documented by: Sodium Chloride () 5 - 15 ml IV UD PRN PRN Reason: SALINE FLUSH Last Admin: 05/10/20 19:51 Dose: 5 ml Documented by: Medical Necessity - Tobacco Use Smoking Status: Never smoker Assessment/Plan All Active Problems (Last Reviewed 01/30/19 @ 11:06 by Graciela Crandall) Pelvic pressure in (Acute) 34 weeks gestation of (Acute) Pre-employment examination (Acute) Upper abdominal pain (Acute) Nausea and vomiting (Acute) A/P Post op day #2 repeat C/S S/P Magnesium Sulfate infusion Pain control Discharge home Follow up in office 1 week for incision check and BP check
--- NOTE | 2020-05-11 09:58 | DCINST_ITS ---
Discharge Diet: No Restrictions Discharge Activity: [address] - 2 weeks May resume sexual activity in: 6-8 weeks Weight Bearing Status: Weight bearing as tolerated Lifting Restrictions: 25 lbs Additional Instructions: If you experience any of the following, contact your healthcare provider. * Bleeding that soaks a pad every hour for 2 hours * Fever 100.4 or higher * Unrelieved incision or abdominal pain * Swelling, redness, discharge or bleeding from your incision or episiotomy site * Your incision begins to separate * Problems urinating (including inability to urinate or burning while urinating). * Visual changes * Severe headache * Flu-like symptoms * Pain or redness in one of both of your breasts * Pain, warmth, tenderness or swelling in your legs, especially the calf area * Frequent nausea and vomiting * Symptoms of depression or anxiety If you experience any of the following, call 911 or go to the nearest Emergency Room. * Chest pain * Problems breathing * Seizure activity * Partial or complete paralysis of a body part, slurred speech, weakness or drooping of the face, or a sudden inability to walk or hold your balance Allergies/Adverse Reactions: Allergies codeine Adverse Reaction (Verified 05/08/20 11:28) Other hallucinations Medications to take at Discharge Pnv No.95/Ferrous Fum/Folic AC [ Caplet] 1 ea PO DAILY 08/24/19 Follow-Up: Call to make an appointment with your doctor for an incision check and blood pressure check in 1 week. You will also need a 6 week post- follow up appointment. Test results from this visit will be discussed in further detail at your follow- up appointment, if applicable. Primary Care Physician: Sonia Davila MD [Primary Care Provider] - Proposed Discharge Date: 05/11/20
--- NOTE | 2020-05-11 09:58 | PCM.DCCSEC ---
Discharge Diet: No Restrictions Discharge Activity: [address] - 2 weeks May resume sexual activity in: 6-8 weeks Weight Bearing Status: Weight bearing as tolerated Lifting Restrictions: 25 lbs Additional Instructions: If you experience any of the following, contact your healthcare provider. Bleeding that soaks a pad every hour for 2 hours Fever 100.4 or higher Unrelieved incision or abdominal pain Swelling, redness, discharge or bleeding from your incision or episiotomy site Your incision begins to separate Problems urinating (including inability to urinate or burning while urinating). Visual changes Severe headache Flu-like symptoms Pain or redness in one of both of your breasts Pain, warmth, tenderness or swelling in your legs, especially the calf area Frequent nausea and vomiting Symptoms of depression or anxiety If you experience any of the following, call 911 or go to the nearest Emergency Room. Chest pain Problems breathing Seizure activity Partial or complete paralysis of a body part, slurred speech, weakness or drooping of the face, or a sudden inability to walk or hold your balance Allergies/Adverse Reactions: Allergies codeine Adverse Reaction (Verified 05/08/20 11:28) Other hallucinations Medications to take at Discharge Pnv No.95/Ferrous Fum/Folic AC [ Caplet] 1 ea PO DAILY 08/24/19 Follow-Up: Call to make an appointment with your doctor for an incision check and blood pressure check in 1 week. You will also need a 6 week post- follow up appointment. Test results from this visit will be discussed in further detail at your follow-up appointment, if applicable. Primary Care Physician: Sonia Davila MD [Primary Care Provider] - Proposed Discharge Date: 05/11/20
--- NOTE | 2020-05-11 10:13 | CASEMGMT ---
SW spoke w/RN in regard to pt as she has been tearful, her baby was sent to [facility] and her four year old is at home and struggling w/separation anxiety. SW spoke w/pt briefly at the bedside. DANA is up, dressed, out of bed. DANA states is getting discharged today and is feeling better about things. She has been here since Wednesday, and states her four year old is not used to being away from her. DANA's plan is to go home and see her four year old, DANA's is with the baby at [facility]. DANA declined any information or referrals at this time, is glad she is leaving today and can be with her family. SW remains available should any needs arise. ILDEFONSO Lopez
--- NOTE | 2020-05-11 10:14 | DS.PCM_ITS ---
Discharge Date and Diagnosis Date of Admission: 05/08/20 Date of Discharge: 05/11/20 - Secondary Discharge Diagnosis Chronic Problems: Chronic Problems (Last Reviewed 01/30/19 @ 11:06 by Graciela Crandall) PCOS (polycystic ovarian syndrome) (Chronic) ocp ordered. refer to [facility] for ART Hospital Course and Treatment Operations: [email or web address], ERCP Summary of Care Provided: The patient is a 29 year old F 36.4 week high risk pregancy, previous c/s, preeclampsia with severe feature, breech. Hospital course included Magnesium Sulfate therapy and blood pressure monitoring. Labs within normal ranges. - Physical Exam Vitals/I&O's: Vital Signs Temp Pulse Resp BP Pulse Ox 97.5 F L 98 16 139/81 H 97 05/11/20 08:00 05/11/20 08:00 05/11/20 08:00 05/11/20 08:00 05/11/20 08:00 Oxygen Flow Rate (L/min) 2 Oxygen Delivery Method Room Air Weight: 311 lb 6.4 oz Body Mass Index (BMI) 53.4 Intake and Output for Last 24 Hours 05/09/20 05/10/20 05/11/20 23:59 23:59 23:59 Intake Total 3197.72 / 3247.72 1676.66 / 1676.66 Output Total 1180 / 1205 700 / 700 Balance 2017.72 / 2042.72 976.66 / 976.66 Current Medications Acetaminophen (Tylenol) 1,000 mg PO Q6H [facility] Last Admin: 05/11/20 04:02 Dose: 1,000 mg Documented by: Bisacodyl (Dulcolax) 10 mg RECTAL UD PRN PRN Reason: If no BM Enoxaparin Sodium (Lovenox) 40 mg SC BID [facility] Last Admin: 05/10/20 21:35 Dose: 40 mg Documented by: Hydrocortisone (Hytone) 1 applic TOPICAL TID PRN PRN; Protocol PRN Reason: Discomfort Naloxone HCl 4 mg/ Dextrose 504 mls @ 0 mls/hr IV .Q0M PRN; Protocol PRN Reason: Respiratory depression Ibuprofen (Motrin) 600 mg PO Q6H [facility] Last Admin: 05/11/20 04:02 Dose: 600 mg Documented by: Methylergonovine Maleate (Methergine) 0.2 mg IM X1 PRN PRN Reason: Uterine Atony Naloxone HCl (Narcan) 0.02 mg IV Q1M PRN PRN Reason: RR <10 and pt unresponsive Ondansetron HCl (Zofran) 4 mg IV Q4H PRN PRN PRN Reason: Nausea Oxycodone HCl (Oxyir) 5 - 10 mg PO Q4H PRN PRN PRN Reason: Pain Score 4-10/10 Last Admin: 05/10/20 19:51 Dose: 5 mg Documented by: Prochlorperazine Edisylate (Compazine Iv) 10 mg IV Q6H PRN PRN PRN Reason: NAUSEA Senna/Docusate Sodium (Senokot-S, Dedra-Colace) 0 tablet PO DAILY [facility] Last Admin: 05/10/20 09:13 Dose: 2 tablet Documented by: Simethicone (Mylicon) 80 mg PO P[facility]S PRN PRN Reason: Indigestion/stomach pain Last Admin: 05/10/20 09:14 Dose: 80 mg Documented by: Sodium Chloride () 5 - 15 ml IV UD PRN PRN Reason: SALINE FLUSH Last Admin: 05/10/20 19:51 Dose: 5 ml Documented by: Discharge Diet: No Restrictions Discharge Activity: [address] - 2 weeks May resume sexual activity in: 6-8 weeks Weight Bearing Status: Weight bearing as tolerated Home Medications: Medications to take at Discharge Pnv No.95/Ferrous Fum/Folic AC [ Caplet] 1 ea PO DAILY 08/24/19 Primary Care Physician: Sonia Davila MD [Primary Care Provider] - Medical Necessity - Tobacco Use Smoking Status: Never smoker Meaningful Use Info Meaningful Use Diagnoses (Choose all that apply): None applicable
[2020-05-11] MEDS: Senna/Docusate Sodium 1 Tablet PO (10:18)
[2020-05-11] MEDS: Enoxaparin 40 MG/0.4 ML Syringe SC (10:19)
[2020-05-11 12:22] VITALS: BP 126/79; PULSE 83; RESP 18; TEMP 36.8
== END 2020-05-11 11:15 | disposition home or self-care (01) | DRG 540 ==
LOC: OBT 08:39 → WP 08:39
PROVIDERS: Admitting Provider Obstetrics & Gynecology; PCP Internal Medicine; Referring Provider Obstetrics & Gynecology; Visit Provider Obstetrics & Gynecology
DX: O14.14 Severe pre-eclampsia complicating childbirth (principal); E66.01 Morbid (severe) obesity due to excess calories; O99.214 Obesity complicating childbirth; E28.2 Polycystic ovarian syndrome; O32.1XX0 Maternal care for breech presentation, not applicable or unspecified; O69.81X0 Labor and delivery complicated by cord around neck, without compression, not applicable or unspecified; Z37.0 Single live birth; Z3A.36 36 weeks gestation of pregnancy
CPT/HCPCS: 36415; 59025; 59050; 80053; 84550; 85025; 85027; 86850; 86900; 86901; 99218; 99251; 99282; J7120; A4216; G0378; G0463; J2405

== ENCOUNTER 2021-01-04 17:05 | Emergency (ER) | payer MEDICAID, SELFPAY ==
[2020-05-08 21:17] VITALS: BMI 53.4
[2021-01-04 17:05] VITALS: BP 144/77; PULSE 104; RESP 17; TEMP 37.1; O2SAT 99; BMI 51.2
--- NOTE | 2021-01-04 17:24 | CT_ITS ---
STUDY: CT BRAIN WITHOUT CONTRAST REASON FOR EXAM: Female, 30 years old. headache, vertigo RADIATION DOSAGE (If Supplied By Facility): CTDIvol = ( 44.99 ) mGy, DLP = ( 745.49 ) mGycm TECHNIQUE: Transaxial CT imaging of the brain was performed without administration of intravenous contrast material. Individualized dose optimization techniques were used for this CT. COMPARISON: No relevant priors. FINDINGS: Normal soft tissue structures. Normal calvarium. Normal size ventricles and extra-axial spaces for the patient''s age. Normal white matter tracts of the cerebral hemispheres. Normal basal ganglia and thalami. Normal brainstem. Normal cerebellum. There is no intracranial hemorrhage. There are no findings of an acute ischemic infarction. Normal visualized paranasal sinuses. CT/Brain/Head without Contrast IMPRESSION: Normal unenhanced CT scan of the brain. Electronically Signed: Lucas Weems MD (Brooks) at 18:41 EDT , Service support ,
--- NOTE | 2021-01-04 17:24 | EKG12_ITS ---
Test Reason : DIZZINESS Blood Pressure : / mmHG Vent. Rate : 095 BPM Atrial Rate : 095 BPM P-R Int : 162 ms QRS Dur : 096 ms QT Int : 372 ms P-R-T Axes : 036 001 005 degrees QTc Int : 467 ms Normal sinus rhythm Minimal voltage criteria for LVH, may be normal variant Borderline ECG Confirmed by MERY ARREDONDO, SUSI ([id number]), story editor LISSETT CARLOS ([id number]) on 01/08/2021 10:46:06 AM Referred By: THAD Confirmed By:SUSI ORDONEZ MD
--- NOTE | 2021-01-04 17:48 | RAD_ITS ---
STUDY: X-RAY CHEST REASON FOR EXAM: Female, 30 years old. cp TECHNIQUE: AP COMPARISON: 08/16/2019 FINDINGS: The lungs are clear and expanded. There is no demonstrated pleural abnormality. Normal size heart. Normal mediastinum and esha. Normal visualized pulmonary arteries. Normal visualized aortic arch and descending thoracic aorta. Normal visualized thoracic spine. Normal visualized ribs, clavicles, and shoulders. There is no demonstrated abnormality of the visualized soft tissue structures of the upper abdomen. RAD/Chest 1 View (Portable) IMPRESSION: Nonacute portable x-ray examination of the chest. Electronically Signed: Lucas Weems MD (Brooks) at 18:19 EDT , Service support ,
[2021-01-04 17:58] LABS: Absolute Lymphocyte Count 1.36 X10^3/uL (0.83-4.51); Absolute Neutrophil Count 3.8 X10^3/uL (2.0-7.7); Basophil# 0.02 X10^3/uL; Basophil% 0.3 % (0-1); Eosinophil# 0.13 X10^3/uL; Eosinophils% 2.3 % (0-5); Hematocrit 39.9 % (37-47); Lymphocyte # 1.36 X10^3/ul (4.0); Lymphocyte % 23.6 % (19-41); Mean Corp Hgb Conc 32.6 g/dL (32-36); Mean Corpuscular Hgb 27.7 pg (27.0-32.0); Mean Corpuscular Volume 84.9 fL (81-99); Mean Platelet Vol. 10.1 fl (6.2-12.0); Monocyte# 0.45 X10^3/uL; Monocyte% 7.8 % (0-10); NRBC Flagged by Analyzer 0 % (0-5); Neutrophil # 3.78 X10^3/uL (2.7-7.7); Neutrophil % 65.7 % (47-70); Platelet Count 233 K/mm3 (150-450); RBC Distribution Width CV 13.3 % (11.6-14.6); RBC Distribution Width SD 41.1 fl (35.1-43.9); White Blood Count 5.8 K/mm3 (4.4-11.0)
[2021-01-04] MEDS: DiphenhydrAMINE 50 MG/ML Syringe 25 MG IV (18:03)
[2021-01-04] MEDS: Metoclopramide 10 MG/2 ML Vial IV (18:04)
[2021-01-04 18:07] LABS: Internal QC Validated? YES +Cl - CLEAR BKGD; Pregnancy, Serum, hCG Quali. NEGATIVE Negative
[2021-01-04] MEDS: Ketorolac 30 MG/ML Syringe IV (18:07)
[2021-01-04 18:12] LABS: Anion Gap 4 (5-15); BUN 14 mg/dL (7-18); BUN/Creat Ratio 20.9 RATIO (10-20); Calcium,Total 8.8 mg/dL (8.5-10.1); Chloride 107 mmol/L (98-107); Creatinine, Serum 0.67 mg/dL (0.55-1.02); EST Glomerular Filtration Rate 111 mL/min (>60); Est Glom Filt Rate - Afr Amer 135 mL/min (>60); Estimated Creatinine Clearance 107.95 ml/min; Glucose 105 mg/dL (74-106); Potassium 3.6 mmol/L (3.5-5.1); Sodium Level 140 mmol/L (136-145)
--- NOTE | 2021-01-04 18:49 | ED.VIS.GEN ---
History of Present Illness Chief Complaint: Dizziness Informant: Patient Onset: Days Context: Gradual Onset Timing: Waxes and wanes Current Severity: Mild Maximum Severity: Moderate Narrative: Patient presents with couple day history of dizzy episodes and hypertension. She describes a spinning sensation and reports having a generalized headache. She states the first attack happened at work. She had a nurse there check her blood pressure was noted to be high. She has noted blood pressures of 155/97, 164/99, 145/96 the past couple of days. She states her systolic pressure usually runs between 120 and 125. She denies recent head injury. - Past Medical History (1) PCOS (polycystic ovarian syndrome) Status: Chronic Comment: ocp ordered. refer to [facility] for ART Past Medical History - Allergies and Home Meds Allergies/Adverse Reactions: Allergies codeine Adverse Reaction (Verified 05/08/20 11:28) Other hallucinations Primary Care Physician: Sonia Davila MD [Primary Care Provider] - 1 Week Surgical History: tonsillectomy, - Lives: Spouse/ Significant Other Smoking Status: Never smoker - Family History Maternal Family History: Family History (Last Reviewed 01/30/19 @ 11:06 by Graciela Crandall) Grandfather Diabetes Mother Hypertension Hyperlipidemia Metabolic syndrome Family History: Reports: Hypertension Paternal Family History: Family History (Last Reviewed 01/30/19 @ 11:06 by Graciela Crandall) Grandfather Diabetes Mother Hypertension Hyperlipidemia Metabolic syndrome Family History: Reports: No pertinent history Review of Systems General: Denies: Chills, Fever Eyes: Denies: Visual changes - bilaterally ENT: Denies: Bilateral ear pain Cardiovascular: Denies: Chest pain Respiratory: Denies: Dyspnea, Cough Gastrointestinal: Denies: Abdominal pain Musculoskeletal: Denies: Swelling, Extremity Pain Skin: Denies: Rash Neurological: Reports: Headache Hematologic: Denies: Easy bruising, Easy bleeding Allergy: Denies: Uticaria Physical Exam Vital Signs/Narrative: Vital Signs Temp Pulse Resp BP Pulse Ox 01/04/21 17:05 98.7 F 104 H 17 144/77 H 99 Inital Vital Signs reviewed: Yes General: Well nourished, Well developed Head: Normocephalic Neck: Supple Cardiovascular: Regular rate, Regular rhythm Respiratory: No distress, CTA bilaterally Abdomen: Soft, Nontender Extremities: Nontender Skin: Normal color, No rash Neurological: Alert, Oriented x3, Normal Strength, Normal Sensation Psychological: Normal affect Diagnostic/Tx/Re-eval Impressions Brain CT 01/04/21 17:24 IMPRESSION: Normal unenhanced CT scan of the brain. Electronically Signed: Lucas Weems MD (Brooks) at 18:41 EDT , Service support , Chest X-Ray 01/04/21 17:48 IMPRESSION: Nonacute portable x-ray examination of the chest. Electronically Signed: Lucas Weems MD (Brooks) at 18:19 EDT , Service support , 01/04/21 17:24 Brain/Head without Contrast [CT] Stat 01/04/21 17:48 Chest 1 View (Portable) [RAD] Stat Laboratory Results 01/04/21 01/04/21 01/04/21 17:50 17:50 17:50 WBC 5.8 RBC 4.70 Hgb 13.0 Hct 39.9 MCV 84.9 MCH 27.7 MCHC 32.6 RDW Std Deviation 41.1 RDW Coeff of Delfino 13.3 Plt Count 233 MPV 10.1 Immature Gran % (Auto) 0.300 Neut % (Auto) 65.7 Lymph % (Auto) 23.6 Bland % (Auto) 7.8 Eos % (Auto) 2.3 Baso % (Auto) 0.3 Absolute Neuts (auto) 3.8 Absolute Lymphs (auto) 1.36 Nucleated RBC % 0 Sodium 140 Potassium 3.6 Chloride 107 Carbon Dioxide 29.0 Anion Gap 4 L BUN 14 Creatinine 0.67 Estim Creat Clear Calc 107.95 Est GFR (MDRD) Af Amer 135 Est GFR (MDRD) Non-Af 111 BUN/Creatinine Ratio 20.9 H Glucose 105 Calcium 8.8 Serum , Qual NEGATIVE - EKG Initial EKG Interpretation: Sinus Rhythm - Sinus at 95. No acute ST change. - Medical Decision Making Patient was given Toradol, Reglan, Benadryl, and IV fluids. Blood work is unremarkable. CT head is normal. Chest x-ray unremarkable. On repeat examination patient is resting comfortably. She reports significant improvement in her headache. She does have a blood pressure cuff at home and will check it multiple times a day over the next week and then follow-up with her primary care physician. Patient will be given a prescription for Antivert to use if she has continued dizzy spells. ED Disposition - Plan for ED Patient: Disposition: Home or Assisted Living Diagnosis: Hypertension, Vertigo Instructions: ED Hypertension, To Be Confirmed, ED Vertigo, Unspecified Prescriptions: Meclizine HCl [Antivert] 25 mg PO 4X/DAY PRN PRN #20 tablet PRN Reason: Dizziness Transmission Status: Pending to [facility] Referrals: Sonia Davila MD [Primary Care Provider] - 1 Week
[2021-01-04 19:09] VITALS: BP 98/56; PULSE 83; RESP 15; O2SAT 96
== END 2021-01-04 19:10 | disposition home or self-care (01) ==
PROVIDERS: Emergency Provider Emergency Medicine; PCP Internal Medicine
DX: I10 Essential (primary) hypertension (principal); R42 Dizziness and giddiness; E28.2 Polycystic ovarian syndrome; Z88.5 Allergy status to narcotic agent; Z82.49 Family history of ischemic heart disease and other diseases of the circulatory system; Z83.49 Family history of other endocrine, nutritional and metabolic diseases; Z83.3 Family history of diabetes mellitus
CPT/HCPCS: 70450; 71045; 80048; 84703; 85025; 93005; 96374; 96375; 99284; A4216

== ENCOUNTER 2021-07-09 11:35 | Emergency (ER) | payer MEDICAID, SELFPAY ==
[2021-07-09 11:36] VITALS: BP 141/91; PULSE 117; RESP 16; TEMP 35.7; O2SAT 97; BMI 47.5
[2021-07-09 12:30] VITALS: BP 155/86; PULSE 110
--- NOTE | 2021-07-09 12:35 | EX.ED.VIS.HA ---
HPI History of Present Illness Chief Complaint: Headache Informant: patient Onset/Context/Timing Onset: Days Context: Gradual Timing: Intermittent Quality -Headache: Positive for Sharp Current Severity: Mild Maximum Severity: Mild Associated Symptoms/Injury Associated Symptoms: Positive for Photophobia; Negative for Fever, Nausea, Vomiting, Sore Throat, Sinus Pressure, Numbness, Tingling, Preceding Aura, Visual Changes, Blurred Vision and Visual Loss Injury - VELIZ: Negative for Direct Trauma, Fall and Assault Narrative Narrative: 30-year-old female complaint headache. Patient states that her and her are currently getting . She has been other times has had C-sections. She said she went through in vitro fertilization. But does not believe she is because said she has had negative test at home. States she has been having headaches over her whole head is like a pressure. They come and go. That is been going on for a week there is days she has no headaches and other days she has more severe headaches. She denies any falls or trauma. She is on no blood thinners. No fever. No sinus congestion. No neck pain. No family history of intracranial bleeds or aneurysms. She also states when she gets up and walks around she breaks out in a diffuse sweat. She denies being on any fertility drugs. She denies any chest pain or shortness of breath. Prior similar symptoms: No Recent Illness/Hospitalization: No PFSH PFSH Medical History (Updated 07/09/21 @ 13:[address] Kal Toney MD) PCOS (polycystic ovarian syndrome) Medical History no medical history Home Medications meclizine 25 mg PO 4X/DAY PRN PRN #20 tablet 01/04/21 [Rx Last Taken Unknown] PNV cmb [id number]-3-dha [Complete DHA] pkg PO 07/09/21 [History Last Taken Unknown] Allergy/AdvReac Type Severity Reaction Status Date / Time codeine AdvReac Other Verified 07/09/21 12:26 Family History Grandfather Diabetes Mother Hypertension Hyperlipidemia Metabolic syndrome Surgical History delivery delivered gallbladder surgery H/O knee surgery History of tonsillectomy Social History Smoking Status: Never smoker alcohol intake: never substance use type: does not use caffeine: Yes what type of physical activity do you participate in: none seatbelt use: always do you feel safe at home: Yes additional social history: Patient works for [employer] ROS ROS ED ROS Narrative Headache. Review of Systems ROS Unobtainable: Denies due to encephalopathy Constitutional Constitutional ED: Denies chills or fever(s) Eyes Eyes: Denies change in vision ENT ENT ED: Denies ear pain Cardiovascular Cardiovascular: Denies chest pain Respiratory/Chest Respiratory/Chest: Denies cough or dyspnea Gastrointestinal Gastrointestinal: Denies abdominal pain, constipation, diarrhea, nausea or vomiting Genitourinary Genitourinary ED: Denies dysuria or hematuria Musculoskeletal Musculoskeletal: Denies myalgias Integumentary Denies rash Neurologic Neurologic: Reports headache(s) Psychiatric Psychiatric: Denies depression Endocrine Endocrinology: Denies polyuria Hematologic/Lymphatic Hematologic/Lymphatic: Denies easy bruising Allergic/Immunologic Allergic/Immunologic ED: Denies urticaria EXAM Physical Exam Narrative Exam Narrative: 22-year-old female no acute distress vital signs stable afebrile blood pressure is little elevated 141/91. She does not look septic toxic. H EENT exam normal. Dry reactive light. No facial droop. No signs of trauma. Neck nontender. No meningismus. No lymphadenopathy. Normal range of motion. Lungs clear to auscultation bilaterally. Heart regular rate and rhythm no murmur. Rate about 100. Abdomen obese but soft nontender normal bowel sounds no peritoneal signs. Moving all 4 extremities. 5 out of 5 motor strength. Dorsi plantarflexion intact. Neurologic exam normal. NIH is 0. Fingertip to nose [id number] within normal limits bilaterally. Normal speech. Awake alert and oriented. No focal deficits. Const Vital Signs: 07/09/21 11:36 07/09/21 12:30 07/09/21 13:50 Temperature 96.3 F L Temperature Source Temporal Pulse Rate 117 H 110 H 85 Respiratory Rate 16 Blood Pressure 141/91 H 155/86 H 129/81 H Blood Pressure Mean 107 109 97 Pulse Ox 97 Oxygen Delivery Method Room Air Positive well nourished, well developed and obese; Negative for cachectic, contractures or unkempt General Appearance ED: well developed and NAD; Negative for unkempt, cachectic or contractures Nutritional Appearance: obese; Negative for cachectic HEENT Reports normocephalic and moist mucous membranes atraumatic; Negative for trauma or tenderness Eyes PERRL and EOMs intact bilaterally Neck no lymphadenopathy, supple, no meningeal signs and no JVD General: Negative for tenderness Resp normal respiratory effort and clear to auscultation bilaterally Auscultation: Negative for rales, rhonchi or wheezes Cardio regular rate, regular rhythm, S1 normal heart sound, S2 normal heart sound and no murmurs GI non-tender and non-distended Auscultation: normoactive bowel sounds Palpation: soft; Negative for firm, tender, guarding or rigid Back/Spine no CVA tenderness General Back: Negative for CVA tenderness or tenderness Extremity normal to inspection and full ROM; Negative for normal capillary refill General Extremety ED: Negative for edema or tenderness General Extremity: Negative for edema Neuro oriented x3 and CN's II-XII intact bilaterally Sensorium / Orientation: awake, alert, oriented to person, oriented to place and oriented to time; Negative for orientation impaired, lethargic or stuporous Coordination / Balance: [id number] test normal and [id number] test normal Motor Exam: strength 5/5 throughout Psych mental status grossly normal Appearance: Negative for unkempt Skin Lesions: no lesions Rashes: no rashes MDM MDM MDM Narrative Medical decision making narrative: 30-year-old female complaining of a headache. Exam normal. Screening labs being obtained. Along with a test. Repeat exam patient doing well at 1:52 PM. Exam unchanged and normal. I discussed all the patient's lab test with her. She understands her test is negative. She did not want anything more than Tylenol for her headache. She was given a dose here and discharged. Lab Data Attestation: I reviewed the patient's lab results. Lab results narrative: CBC normal white count of 5. Hemoglobin 14. Electrolytes normal gap of 4 normal BUN and creatinine. Glucose 95. Serum test negative. Labs: Laboratory Results - last 24 hr 07/09/21 07/09/21 07/09/21 12:50 12:50 12:50 WBC 5.7 RBC 5.15 Hgb 14.0 Hct 42.3 MCV 82.1 MCH 27.2 MCHC 33.1 RDW Std Deviation 38.8 RDW Coeff of Delfino 13.0 Plt Count 232 MPV 9.9 Immature Gran % (Auto) 0.500 Neut % (Auto) 80.3 H Lymph % (Auto) 12.1 L [place] % (Auto) 6.0 Eos % (Auto) 0.7 Baso % (Auto) 0.4 Absolute Neuts (auto) 4.6 Absolute Lymphs (auto) 0.69 L Nucleated RBC % 0 Sodium 138 Potassium 3.7 Chloride 107 Carbon Dioxide 27.0 Anion Gap 4 L BUN 9 Creatinine 0.59 Estim Creat Clear Calc 127.74 Est GFR (MDRD) Af Amer 154 Est GFR (MDRD) Non-Af 128 BUN/Creatinine Ratio 15.2 Glucose 95 Calcium 8.3 L Serum , Qual NEGATIVE Discharge Plan Triage Chief Complaint: Headache ED Provider: Kal Toney Dx/Rx/DC Orders Clinical Impression: Headache Instructions: ED Headache Unspecified Prescriptions: No Action meclizine 25 MG tablet 25 mg PO 4X/DAY PRN PRN (Reason: Dizziness) Qty: 20 RF: 0 Complete DHA 83-4-932-200 mg combo pack PO RF: 0 Primary Care Provider: Sonia Davila Referrals: Sonia Davila MD [Primary Care Provider] - 3-5 Days if not improving Activity Restrictions/Additional Instructions: Plenty of fluids and rest. Your labs were unremarkable. Your test was negative. Motrin and Tylenol for your headache. Follow-up if not improving or return if feeling a lot worse. Disposition Disposition: Home, Self Care
[2021-07-09] MEDS: 0.9% Normal Saline 1,000 ML 1000 ML IV (12:49)
[2021-07-09 12:57] LABS: Absolute Lymphocyte Count 0.69 X10^3/uL (0.83-4.51); Absolute Neutrophil Count 4.6 X10^3/uL (2.0-7.7); Basophil# 0.02 X10^3/uL; Basophil% 0.4 % (0-1); Eosinophil# 0.04 X10^3/uL; Eosinophils% 0.7 % (0-5); Hematocrit 42.3 % (37-47); Lymphocyte # 0.69 X10^3/ul (0.83-4.51); Lymphocyte % 12.1 % (19-41); Mean Corp Hgb Conc 33.1 g/dL (32-36); Mean Corpuscular Hgb 27.2 pg (27.0-32.0); Mean Corpuscular Volume 82.1 fL (81-99); Mean Platelet Vol. 9.9 fl (6.2-12.0); Monocyte# 0.34 X10^3/uL; NRBC Flagged by Analyzer 0 % (0-5); Neutrophil # 4.58 X10^3/uL (2.7-7.7); Neutrophil % 80.3 % (47-70); Platelet Count 232 K/mm3 (150-450); RBC Distribution Width SD 38.8 fl (35.1-43.9); Red Blood Count 5.15 M/mm3 (4.2-5.4); White Blood Count 5.7 K/mm3 (4.4-11.0)
[2021-07-09 13:04] LABS: Internal QC Validated? YES +Cl - CLEAR BKGD; Pregnancy, Serum, hCG Quali. NEGATIVE Negative
[2021-07-09 13:09] LABS: Anion Gap 4 (5-15); BUN 9 mg/dL (7-18); BUN/Creat Ratio 15.2 RATIO (10-20); Calcium,Total 8.3 mg/dL (8.5-10.1); Chloride 107 mmol/L (98-107); Creatinine, Serum 0.59 mg/dL (0.55-1.02); EST Glomerular Filtration Rate 128 mL/min (>60); Est Glom Filt Rate - Afr Amer 154 mL/min (>60); Estimated Creatinine Clearance 127.74 ml/min; Glucose 95 mg/dL (74-106); Potassium 3.7 mmol/L (3.5-5.1); Sodium Level 138 mmol/L (136-145)
[2021-07-09 13:50] VITALS: BP 129/81; PULSE 85
[2021-07-09] MEDS: Acetaminophen 325 MG Tablet 650 MG PO (14:03)
[2021-07-09 14:04] VITALS: BP 122/81; PULSE 85
== END 2021-07-09 14:07 | disposition home or self-care (01) ==
PROVIDERS: Emergency Provider Emergency Medicine; PCP Internal Medicine
DX: R51.9 Headache, unspecified (principal); E66.9 Obesity, unspecified; E28.2 Polycystic ovarian syndrome
CPT/HCPCS: 80048; 84703; 85025; 96360; 99284; J7030; A4216

== ENCOUNTER → 2021-07-16 09:55 | Outpatient (CLI) | payer MEDICAID, SELFPAY ==
[2021-07-16 11:02] LABS: Thyroid Stim Hormone (TSH) 1.43 uIU/mL (0.358-3.74)
== END ==
PROVIDERS: PCP Internal Medicine; Referring Provider Nurse Practitioner Women's Health; Visit Provider Nurse Practitioner Women's Health
DX: N93.9 Abnormal uterine and vaginal bleeding, unspecified (principal)
CPT/HCPCS: 36415; 84443

== ENCOUNTER 2021-10-01 10:52 | Outpatient (CLI) | payer MEDICAID, SELFPAY ==
[2021-10-04 11:02] LABS: HPV Reflexed? NOT INDICATED
== END 2021-10-01 23:59 | disposition short-term general hospital (02) ==
LOC: LABSPEC 10:53
PROVIDERS: PCP Internal Medicine; Visit Provider Obstetrics & Gynecology
DX: Z12.4 Encounter for screening for malignant neoplasm of cervix (principal)
CPT/HCPCS: 88175; G0145

== ENCOUNTER → 2022-01-27 | Outpatient (CLI) | payer MEDICAID, SELFPAY ==
[2022-01-27 09:09] LABS: Progesterone Level 6.78 ng/mL (See Comment)
== END | disposition home or self-care (01) ==
PROVIDERS: PCP Internal Medicine; Referring Provider Obstetrics & Gynecology; Visit Provider Obstetrics & Gynecology
DX: N97.0 Female infertility associated with anovulation (principal)
CPT/HCPCS: 36415; 84144

== ENCOUNTER → 2022-05-11 | Outpatient (CLI) | payer MEDICAID, SELFPAY ==
[2022-05-11 17:14] LABS: Amphetamine Urine VISTA NEGATIVE (<1000 ng/mL); Barbiturate Urine VISTA NEGATIVE (< 200 ng/mL); Benzodiazepine Urine VISTA NEGATIVE (< 200 ng/mL); Cocaine Urine VISTA NEGATIVE (< 300 ng/mL); Ecstacy Urine VISTA NEGATIVE (< 500 ng/mL); Methadone Urine VISTA NEGATIVE (< 300 ng/mL); PCP Urine VISTA NEGATIVE (< 25 ng/mL); Protein, Urine (Random) 8.2 mg/dL (<11.9); Protein:Creat Ratio 133 mg/g CRE (0-200); THC Urine VISTA NEGATIVE (< 50 ng/mL); Vista UDS pH Range 7
[2022-05-14 06:07] LABS: Chlamydia By Nucleic Acid AMP Negative (Negative)
[2022-05-14 07:35] LABS: Gonococcus By Nucleic Acid AMP Negative (Negative)
== END | disposition home or self-care (01) ==
PROVIDERS: PCP Internal Medicine; Visit Provider Obstetrics & Gynecology
DX: Z34.91 Encounter for supervision of normal pregnancy, unspecified, first trimester (principal)
CPT/HCPCS: 80307; 82570; 84156; 87086; 87491; 87591

== ENCOUNTER → 2022-06-23 | Outpatient (CLI) | payer MEDICAID, SELFPAY ==
[2022-06-23 16:52] LABS: Absolute Lymphocyte Count 1.49 X10^3/uL (0.83-4.51); Absolute Neutrophil Count 5.7 X10^3/uL (2.0-7.7); Basophil# 0.02 X10^3/uL; Basophil% 0.3 % (0-1); Eosinophil# 0.11 X10^3/uL; Eosinophils% 1.4 % (0-5); Hemoglobin 11.1 g/dL (12.0-15.0); Lymphocyte # 1.49 X10^3/ul (0.83-4.51); Mean Corp Hgb Conc 33.6 g/dL (32-36); Mean Corpuscular Hgb 28.6 pg (27.0-32.0); Mean Corpuscular Volume 85.1 fL (81-99); Mean Platelet Vol. 10.6 fl (6.2-12.0); Monocyte# 0.42 X10^3/uL; Monocyte% 5.4 % (0-10); NRBC Flagged by Analyzer 0 % (0-5); Neutrophil # 5.71 X10^3/uL (2.7-7.7); Neutrophil % 72.6 % (47-70); Platelet Count 223 K/mm3 (150-450); RBC Distribution Width CV 14.1 % (11.6-14.6); RBC Distribution Width SD 43.3 fl (35.1-43.9); Red Blood Count 3.88 M/mm3 (4.2-5.4); White Blood Count 7.9 K/mm3 (4.4-11.0)
[2022-06-23 17:37] LABS: ALB/GLOB Ratio 0.8 RATIO (0.9-2.4); AST(SGOT) 8 U/L (15-37); Alanine Aminotransfer ALT/SGPT 15 U/L (13-56); Albumin, Serum 2.8 g/dL (3.2-5.0); Alkaline Phosphatase 57 U/L (45-117); Anion Gap 8 (5-15); BUN 8 mg/dL (7-18); BUN/Creat Ratio 16.6 RATIO (10-20); Calcium,Total 8.8 mg/dL (8.5-10.1); Chloride 107 mmol/L (98-107); Creatinine, Serum 0.48 mg/dL (0.55-1.02); EST Glomerular Filtration Rate 161 mL/min (>60); Est Glom Filt Rate - Afr Amer 194 mL/min (>60); Globulin 3.7 g/dL (2.2-4.2); Glucose 154 mg/dL (74-106); Glucose Challenge Gest 1H 50g 154 mg/dL (70-140); Potassium 3.7 mmol/L (3.5-5.1); Protein, Total 6.5 g/dL (6.4-8.2); Sodium Level 139 mmol/L (136-145)
[2022-06-23 17:38] LABS: Hemoglobin A1c 5.2 % (3.8-5.6)
[2022-06-24 08:56] LABS: HIV - WCH Non-Reactive (Nonreactive); Hepatitis B Surface Antigen Non-Reactive (Nonreactive); Hepatitis C Antibody Non-Reactive (Nonreactive); Rubella IgG Reactive (Nonreactive); Syphilis Antibodies Non-reactive
== END | disposition home or self-care (01) ==
LOC: LAB 16:06
PROVIDERS: PCP Internal Medicine; Referring Provider Obstetrics & Gynecology; Visit Provider Obstetrics & Gynecology
DX: Z34.91 Encounter for supervision of normal pregnancy, unspecified, first trimester (principal)
CPT/HCPCS: 36415; 80053; 82950; 83036; 85025; 86703; 86762; 86780; 86803; 86850; 86900; 86901; 87340

== ENCOUNTER → 2022-06-26 | Outpatient (CLI) | payer MEDICAID, SELFPAY ==
[2022-06-26 07:37] LABS: Glucose GTT-Gestation. Fasting 89 mg/dL (<105)
[2022-06-26 08:41] LABS: Glucose GTT-Gestational 1 Hr 181 mg/dL (<190)
[2022-06-26 09:34] LABS: Glucose GTT-Gestational 2 Hr 162 mg/dL (<165)
[2022-06-26 10:45] LABS: Glucose GTT-Gestational 3 Hr 64 L (<145)
== END | disposition home or self-care (01) ==
LOC: LAB 06:55
PROVIDERS: PCP Internal Medicine; Referring Provider Obstetrics & Gynecology; Visit Provider Obstetrics & Gynecology
DX: Z13.1 Encounter for screening for diabetes mellitus (principal)
CPT/HCPCS: 36415; 82951; 82952

== ENCOUNTER 2022-07-09 10:00 | Outpatient (RCR) | payer MEDICAID, SELFPAY | END 2022-07-27 23:59 | LOC: DC 10:00 | PROVIDERS: PCP Internal Medicine; Referring Provider Obstetrics & Gynecology; Visit Provider Obstetrics & Gynecology | DX: O24.419 Gestational diabetes mellitus in pregnancy, unspecified control (principal) | CPT/HCPCS: 97802; G0108 ==

== ENCOUNTER 2022-08-30 12:36 | Emergency (ER) | payer MEDICAID, SELFPAY ==
[2022-08-30 12:37] VITALS: BP 142/77; PULSE 101; RESP 18; TEMP 36.6; O2SAT 100; BMI 48.6
[2022-08-30] MEDS: 0.9% Normal Saline 1,000 ML 1000 ML IV (13:14)
[2022-08-30] MEDS: Ondansetron 4 MG/2 ML Vial IV (13:15)
[2022-08-30 13:16] LABS: Absolute Lymphocyte Count 0.37 X10^3/uL (0.83-4.51); Absolute Neutrophil Count 9.6 X10^3/uL (2.0-7.7); Basophil# 0.01 X10^3/uL; Basophil% 0.1 % (0-1); Eosinophil# 0.02 X10^3/uL; Eosinophils% 0.2 % (0-5); Hematocrit 38.4 % (37-47); Hemoglobin 12.7 g/dL (12.0-15.0); Lymphocyte # 0.37 X10^3/ul (0.83-4.51); Lymphocyte % 3.5 % (19-41); Mean Corp Hgb Conc 33.1 g/dL (32-36); Mean Corpuscular Hgb 28.3 pg (27.0-32.0); Mean Corpuscular Volume 85.7 fL (81-99); Monocyte# 0.46 X10^3/uL; Monocyte% 4.3 % (0-10); NRBC Flagged by Analyzer 0 % (0-5); Neutrophil # 9.59 X10^3/uL (2.7-7.7); Neutrophil % 90.4 % (47-70); POSITIVE DIFFERENTIAL YES; Platelet Count 224 K/mm3 (150-450); RBC Distribution Width CV 14.1 % (11.6-14.6); RBC Distribution Width SD 43.8 fl (35.1-43.9); Red Blood Count 4.48 M/mm3 (4.2-5.4); White Blood Count 10.6 K/mm3 (4.4-11.0)
[2022-08-30 13:18] LABS: Differential Indicated SCAN CRITERIA MET
[2022-08-30 13:20] VITALS: BP 130/70; PULSE 113; RESP 18; O2SAT 95
[2022-08-30 13:34] LABS: ALB/GLOB Ratio 0.7 RATIO (0.9-2.4); AST(SGOT) 9 U/L (15-37); Alanine Aminotransfer ALT/SGPT 20 U/L (13-56); Albumin, Serum 2.9 g/dL (3.2-5.0); Alkaline Phosphatase 72 U/L (45-117); Anion Gap 6 (5-15); BUN 8 mg/dL (7-18); BUN/Creat Ratio 18.9 RATIO (10-20); Calcium,Total 8.8 mg/dL (8.5-10.1); Chloride 107 mmol/L (98-107); Creatinine, Serum 0.42 mg/dL (0.55-1.02); EST Glomerular Filtration Rate 187 mL/min (>60); Est Glom Filt Rate - Afr Amer 226 mL/min (>60); Estimated Creatinine Clearance 177.84 ml/min; Globulin 4.2 g/dL (2.2-4.2); Glucose 107 mg/dL (74-106); Potassium 3.7 mmol/L (3.5-5.1); Protein, Total 7.1 g/dL (6.4-8.2); Sodium Level 136 mmol/L (136-145)
[2022-08-30 13:38] LABS: Platelet Estimate ADEQUATE (ADEQ); Red Cell Morphology NORM C+C NORMAL (NORM C&C)
--- NOTE | 2022-08-30 13:51 | EDS_ITS ---
HPI History of Present Illness Chief Complaint: Nausea/Vomiting/Diarrhea Informant: patient Onset/Context/Timing Onset: Today Context: Sudden Onset Timing: Continuous Quality: Sharp Location: diffuse across the abdomen Worsened by: Nothing Relieved by: Nothing Narrative Narrative: Patient presents with abdominal pain and diarrhea that began today. Patient states it began rather suddenly. Patient describes her pain as sharp. Patient states her pain is diffuse across her abdomen. Patient states her pain is constant. Patient is approximately 24 weeks with twins. Patient states her diarrhea is watery. Patient denies any nausea or vomiting. Patient denies any dysuria or hematuria. Patient states she received her flu shot recently. Patient denies any abnormal vaginal bleeding or discharge. Patient states she called her PACKING ROOM WORKER who referred her to the emergency department because she thought she was dehydrated. [facility] Medical History PCOS (polycystic ovarian syndrome) Home Medications metformin 500 mg tablet 500 mg PO TID 30 days #90 tabs 11/21/21 [Rx Last Taken Unknown] loratadine 10 mg tablet (Claritin) 10 mg PO DAILY 05/05/22 [History Last Taken Unknown] lancets #100 ea 07/01/22 [Rx Last Taken Unknown] lancets 33 gauge (BD Ultra Fine Lancets) #100 ea 07/01/22 [Rx Last Taken Unknown] PNV-iron 29 mg-folic acid 1 mg-omega3 250 mg-dha 200mg oral combo pack (Complete DHA) 1 pkg PO DAILY #60 ea 07/10/22 [Rx Last Taken Unknown] blood sugar diagnostic (Blood Glucose Test strips) #150 ea 07/23/22 [Rx Last Taken Unknown] blood-glucose meter #150 ea 07/23/22 [Rx Last Taken Unknown] aspirin 81 mg capsule 81 mg PO DAILY 08/30/22 [History Last Taken Unknown] cephalexin 500 mg capsule 500 mg PO Q6 #12 CAPSULES 08/30/22 [Rx Last Taken Unknown] Allergy/AdvReac Type Severity Reaction Status Date / Time codeine AdvReac Other Verified 08/30/22 12:36 Family History Grandfather Diabetes Mother Hypertension Hyperlipidemia Metabolic syndrome Surgical History delivery delivered H/O knee surgery History of tonsillectomy Hx of cholecystectomy Social History adopted: No household members: spouse and children housing: house number of children: 2 current occupational status: employed 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- [employer] current occupational exposures/hazards: No pets and animals: Yes pets and animals: dog(s) history of recent travel: No sexually active: Yes Smoking Status: Never smoker alcohol intake: never substance use type: does not use well-balanced diet: daily or most days caffeine: No eating out: rarely or never during the past year weight has: remained stable what type of physical activity do you participate in: none and walking frequency: 3-4 times per week duration: 15-30 minutes/day adri/mosque: None seatbelt use: always do you feel safe at home: Yes additional social history: Patient works for [employer] Constitutional Constitutional ED: Reports chills and subjective; Denies fever(s) Eyes Eyes: Denies blurry vision or change in vision ENT ENT ED: Denies rhinorrhea or sore throat Cardiovascular Cardiovascular: Denies chest pain or palpitations Respiratory/Chest Respiratory/Chest: Denies cough or dyspnea Gastrointestinal Gastrointestinal: Reports abdominal pain and diarrhea; Denies nausea or vomiting Genitourinary Genitourinary ED: Denies dysuria or hematuria Musculoskeletal Musculoskeletal: Denies back pain or neck pain Integumentary Denies abscess or rash Neurologic Neurologic: Denies headache(s) or weakness Allergic/Immunologic Allergic/Immunologic ED: Denies mouth swelling or urticaria EXAM Physical Exam Const Vital Signs: 08/30/22 12:37 08/30/22 13:20 08/30/22 14:34 Temperature 97.8 F Temperature Source Temporal Pulse Rate 101 H 113 H 118 H Respiratory Rate 18 18 18 Blood Pressure 142/77 H 130/70 H 134/83 H Blood Pressure Mean 98 90 100 Pulse Ox 100 95 100 Oxygen Delivery Method Room Air Room Air Room Air Positive well nourished and well developed General Appearance ED: well developed HEENT Reports moist mucous membranes Neck supple and no JVD Resp normal respiratory effort and clear to auscultation bilaterally Cardio regular rate, regular rhythm and no murmurs GI normal to inspection, nondistended, normoactive bowel sounds Palpation: soft and tender epigastric, LLQ, RLQ, LUQ, RUQ, periumbilical and suprapubic; Negative for guarding or rebound tenderness present Extremity normal to inspection General Extremety ED: Negative for edema or tenderness General Extremity: Negative for edema Neuro oriented x3, CN's II-XII intact bilaterally and no sensory deficits noted Sensorium / Orientation: alert Motor Exam: strength 5/5 throughout Psych mental status grossly normal Skin no rashes or lesions noted MDM MDM MDM Narrative Medical decision making narrative: Patient was given IV fluids, morphine, and Zofran. CBC was within normal limits. Comprehensive metabolic profile was within normal limits. Quantitative hCG was 8322. Urinalysis shows a leukocyte esterases of 100 with 10-25 white blood cells. There is 2+ bacteria and positive nitrites. Urine culture was ordered. Patient was given a dose of Keflex here. Patient was given a prescription for Keflex. Patient was instructed to drink plenty of fluids. Patient states her pain went from burning to cramping. Patient will be discharged from the emergency department and instructed to go to the OB department for further evaluation. Patient understood and was agreeable with the plan. All questions were answered. Lab Data Attestation: I reviewed the patient's lab results. Labs: Laboratory Results - last 24 hr 08/30/22 08/30/22 08/30/22 13:02 13:02 13:02 WBC 10.6 RBC 4.48 Hgb 12.7 Hct 38.4 MCV 85.7 MCH 28.3 MCHC 33.1 RDW Std Deviation 43.8 RDW Coeff of Delfino 14.1 Plt Count 224 MPV 10.0 Immature Gran % (Auto) 1.500 H Neut % (Auto) 90.4 H Lymph % (Auto) 3.5 L [place] % (Auto) 4.3 Eos % (Auto) 0.2 Baso % (Auto) 0.1 Absolute Neuts (auto) 9.6 H Absolute Lymphs (auto) 0.37 L Nucleated RBC % 0 Platelet Estimate ADEQUATE RBC Morphology NORM C+C Sodium 136 Potassium 3.7 Chloride 107 Carbon Dioxide 23.0 Anion Gap 6 BUN 8 Creatinine 0.42 L Estim Creat Clear Calc 177.84 Est GFR (MDRD) Af Amer 226 Est GFR (MDRD) Non-Af 187 BUN/Creatinine Ratio 18.9 Glucose 107 H Calcium 8.8 Total Bilirubin 0.30 AST 9 L ALT 20 Alkaline Phosphatase 72 Total Protein 7.1 Albumin 2.9 L Globulin 4.2 Albumin/Globulin Ratio 0.7 L HCG, Quant 8322 H Urine Color Urine Clarity Urine pH Ur Specific [place] Urine Protein Urine Glucose (UA) Urine Ketones Urine Occult Blood Urine Nitrite Urine Bilirubin Urine Urobilinogen Ur Leukocyte Esterase Urine RBC Urine WBC Ur Squamous Epith Cells Urine Bacteria Urine Mucus 08/30/22 14:30 WBC RBC Hgb Hct MCV MCH MCHC RDW Std Deviation RDW Coeff of Delfino Plt Count MPV Immature Gran % (Auto) Neut % (Auto) Lymph % (Auto) [place] % (Auto) Eos % (Auto) Baso % (Auto) Absolute Neuts (auto) Absolute Lymphs (auto) Nucleated RBC % Platelet Estimate RBC Morphology Sodium Potassium Chloride Carbon Dioxide Anion Gap BUN Creatinine Estim Creat Clear Calc Est GFR (MDRD) Af Amer Est GFR (MDRD) Non-Af BUN/Creatinine Ratio Glucose Calcium Total Bilirubin AST ALT Alkaline Phosphatase Total Protein Albumin Globulin Albumin/Globulin Ratio HCG, Quant Urine Color Yellow Urine Clarity Sl Cldy Urine pH 7.0 Ur Specific [place] 1.015 Urine Protein 15 H Urine Glucose (UA) Normal Urine Ketones Negative Urine Occult Blood Negative Urine Nitrite Positive H Urine Bilirubin Negative Urine Urobilinogen Normal Ur Leukocyte Esterase 100 H Urine RBC 0 SEEN Urine WBC 10-25 SEEN Ur Squamous Epith Cells 5-10 SEEN Urine Bacteria 2+ Urine Mucus 0 SEEN Discharge Plan Triage Chief Complaint: Nausea/Vomiting/Diarrhea ED Provider: Edson Chirinos Dx/Rx/DC Orders Clinical Impression: Urinary tract infection, Instructions: ED Cystitis Female Adult, ED Established ... Prescriptions: New cephalexin [cephalexin] 500 mg capsule 500 mg PO Q6 Qty: 12 0RF No Action loratadine [Claritin] 10 mg tablet 10 mg PO DAILY (DME) lancets [BD Ultra Fine Lancets] 33 gauge misc See Rx Instructions .MEDSUPPLY Qty: 100 8RF Rx Instructions: As directed (DME) lancets Misc See Rx Instructions .MEDSUPPLY Qty: 100 8RF Rx Instructions: As directed aspirin 81 mg Capsule 81 mg PO DAILY metformin 500 mg tablet 500 mg PO TID 30 Days Qty: 90 12RF Complete DHA 41-7-249-200 mg combo pack 1 pkg PO DAILY Qty: 60 6RF (DME) blood-glucose meter Misc See Rx Instructions miscellaneous .MEDSUPPLY Qty: 150 6RF Rx Instructions: As directed Check BS fasting and 2 hours after meals(4x/day) (DME) Blood Glucose Test Strip See Rx Instructions .Route Qty: 150 6RF Rx Instructions: 4 times daily Primary Care Provider: Sonia Davila Referrals: Sonia Davila MD [Primary Care Provider] - 5-7 Days Delicia Crum DO [Med Staff - Active Staff] - 2 Days Disposition Disposition: Home, Self Care
[2022-08-30 14:02] LABS: hCG Titer Quant., Serum 8322 mIU/mL (1-3)
[2022-08-30] MEDS: Morphine 4 MG/ML Syringe IV (14:30)
[2022-08-30 14:34] VITALS: BP 134/83; PULSE 118; RESP 18; O2SAT 100
[2022-08-30 14:46] LABS: Mucous, Urine 0 SEEN /hpf (<or=2+); Red Blood Cells-Urine 0 SEEN /hpf (0-5)
[2022-08-30 14:47] LABS: Color, Urine Yellow (Yellow); Glucose, Dipstick Normal (Normal); Ketone-Dipstick Negative (Negative); Leukocyte Esterase-Dipstick 100 /ul (Negative); Nitrite-Dipstick Positive (Negative); Occult Blood-Urine Negative /ul (Negative); Protein-Dipstick 15 mg/dl (Negative); Specific Gravity, Urine 1.015 (1.002-1.030); Urine Bilirubin Dipstick Negative (Negative); Urine Urobilinogen Normal (Normal)
[2022-08-30 14:50] LABS: Urine Clarity Sl Cldy (Clear)
[2022-08-30 15:08] LABS: Bacteria 2+ /hpf (None Seen); Squamous Epithelial Cells - UA 5-10 SEEN /hpf (5-10); White Blood Cells 10-25 SEEN /hpf (0-5)
[2022-08-30] MEDS: Cephalexin 250 MG Capsule 500 MG PO (16:01)
--- NOTE | 2022-08-30 16:05 | ED.RN ---
spoke with pharmacist in charge owner in OB who stated she will talk with Dr. Portillo about bringing pt to OB.
--- NOTE | 2022-08-30 16:38 | US_ITS ---
REASON FOR EXAM: Female, 31 years old. Twin gestations for cervical length evaluation . TECHNIQUE: Transabdominal FINDINGS: Baby A The fetus is in a breech presentation. There is demonstrated cardiac activity with a heart rate of 158 bpm. Largest fluid pocket 5.0 x 3.5 cm. The placenta is posterior in location and is not low lying. . Cervical length 3.5 cm. Baby B The fetus is in a breech presentation. There is demonstrated cardiac activity with a heart rate of 155 bpm. Largest fluid pocket 3.3 x 3.5 cm The placenta is anterior in location and is not low lying. US/OB Limited (No Biometrics) IMPRESSION: Live twin gestations. Cervical length 3.5 cm. Electronically Signed: Hans Galo MD at 19:48 EST ,
[2022-08-30 17:12] LABS: Fetal Fibronectin Negative
[2022-08-30 19:43] VITALS: BP 140/67; PULSE 114; RESP 16; TEMP 37; O2SAT 97
[2022-08-30 20:09] VITALS: BP 140/67; PULSE 114; RESP 16; O2SAT 97
== END 2022-08-30 20:10 | disposition home or self-care (01) ==
PROVIDERS: Obstetrics & Gynecology; Emergency Provider Emergency Medicine; PCP Internal Medicine; Visit Provider Emergency Medicine
DX: O23.42 Unspecified infection of urinary tract in pregnancy, second trimester (principal); O21.9 Vomiting of pregnancy, unspecified; O99.282 Endocrine, nutritional and metabolic diseases complicating pregnancy, second trimester; E86.0 Dehydration; O99.891 Other specified diseases and conditions complicating pregnancy; R19.7 Diarrhea, unspecified; Z3A.24 24 weeks gestation of pregnancy; Z79.82 Long term (current) use of aspirin; R10.9 Unspecified abdominal pain
CPT/HCPCS: 76815; 80053; 81001; 82731; 84702; 85025; 87086; 87088; 96361; 96374; 96375; 99283; J7030; A4216; J2405

== ENCOUNTER 2022-09-17 07:48 | Inpatient (IN) | payer MEDICAID, SELFPAY ==
[2022-09-17] VITALS (10 sets, daily range): BP systolic 130–141; BP diastolic 68–78; PULSE 107–113; RESP 18–20; TEMP 35.6–36.9; O2SAT 96–98; BMI 47.7
--- NOTE | 2022-09-17 08:10 | EDS_ITS ---
HPI HPI - URI History of Present Illness Chief Complaint: Shortness of Breath Detail of Chief Complaint: Cough. Informant: patient Onset/Context/Timing Onset: Days Timing: Continuous Current Severity: Mild Associated Symptoms Associated Symptoms: Positive for Nasal Congestion, Shortness of Breath and Nonproductive cough; Negative for Diarrhea, Chest Pain or Hemoptysis Narrative Narrative: 31-year-old female currently is with twins she is around 27 weeks and is due December 17. States she is having nonproductive cough for a week has some shortness of breath. No hemoptysis. No chest pain. No history of DVT or PE. No fever. Prior similar symptoms: Yes Recent Illness/Hospitalization: No ROS ROS ED ROS Narrative URI symptoms. Cough. Review of Systems ROS Unobtainable: Denies due to encephalopathy Constitutional Constitutional ED: Denies chills or fever(s) Eyes Eyes: Denies blurry vision ENT ENT ED: Denies ear pain Cardiovascular Cardiovascular: Denies chest pain Respiratory/Chest Respiratory/Chest: Reports cough and dyspnea Gastrointestinal Gastrointestinal: Denies abdominal pain Genitourinary Genitourinary ED: Denies dysuria or hematuria Musculoskeletal Musculoskeletal: Denies arthralgias Integumentary Denies abscess Neurologic Neurologic: Denies headache(s) Psychiatric Psychiatric: Denies anxiety Endocrine Endocrinology: Denies cold intolerance Hematologic/Lymphatic Hematologic/Lymphatic: Denies easy bleeding Allergic/Immunologic Allergic/Immunologic ED: Denies mouth swelling or tongue swelling PFSH PFSH Medical History PCOS (polycystic ovarian syndrome) Home Medications lancets #100 ea 07/01/22 [Rx Last Taken Unknown] lancets 33 gauge (BD Ultra Fine Lancets) #100 ea 07/01/22 [Rx Last Taken Unknown] blood sugar diagnostic (Blood Glucose Test strips) #150 ea 07/23/22 [Rx Last Taken Unknown] blood-glucose meter #150 ea 07/23/22 [Rx Last Taken Unknown] lauren.stocking,knee,reg,smal (T.E.D. Anti-Embolism Stocking) #1 ea 09/08/22 [Rx Last Taken Unknown] PNV-iron 29 mg-folic acid 1 mg-omega3 250 mg-dha 200mg oral combo pack (Complete Radha DHA) 1 pkg PO DAILY SUPPLEMENT 09/17/22 [History Last Taken 09/17/22 07:00] aspirin 81 mg tablet,delayed release 81 mg PO DAILY heart health 09/17/22 [History Last Taken 09/17/22 07:00] ferrous sulfate 325 mg (65 mg iron) tablet (iron) 325 mg PO DAILY SUPPLEMENT 09/17/22 [History Last Taken 09/17/22 07:00] folic acid 400 mcg tablet 0.4 mg PO DAILY SUPPLEMENT 09/17/22 [History Last Taken 09/17/22 07:00] metformin 500 mg tablet 500 mg PO TID PCOS 09/17/22 [History Last Taken 09/17/22 07:00] Allergy/AdvReac Type Severity Reaction Status Date / Time codeine AdvReac Other Verified 09/17/22 07:49 Family History Grandfather Diabetes Mother Hypertension Hyperlipidemia Metabolic syndrome Surgical History delivery delivered H/O knee surgery History of tonsillectomy Hx of cholecystectomy Social History adopted: No household members: spouse and children housing: house number of children: 2 current occupational status: employed current occupation: [employer] current occupational exposures/hazards: No pets and animals: Yes pets and animals: dog(s) history of recent travel: No sexually active: Yes Smoking Status: Never smoker alcohol intake: never substance use type: does not use well-balanced diet: daily or most days caffeine: No eating out: rarely or never during the past year weight has: remained stable what type of physical activity do you participate in: none and walking frequency: 3-4 times per week duration: 15-30 minutes/day adri/catholic: None seatbelt use: always do you feel safe at home: Yes additional social history: Patient works for [employer] Physical Exam Narrative Exam Narrative: 31-year-old female currently with twins. Vital signs stable and afebrile. Pulse ox 96% on room air no hypoxia. H EENT exam unremarkable. Moist mucous membranes. Neck nontender no JVD. Lungs dry cough. No rales or rhonchi. Equal symmetrical. Heart tachycardic rate 110 no murmur. Abdomen soft nontender. Gravid uterus. Moving all 4 extremities. Calves are nontender without edema. Neurologically she is awake and alert. Const Vital Signs: 09/17/22 07:49 09/17/22 07:53 09/17/22 08:20 Temperature 96.1 F L Temperature Source Temporal Pulse Rate 110 H 109 H Respiratory Rate 20 H 18 Respiratory Effort Normal Respiratory Depth Normal Respiratory Pattern Normal Normal Blood Pressure 134/78 H Blood Pressure Mean 96 Pulse Ox 96 Oxygen Delivery Method Room Air Room Air 09/17/22 10:12 Temperature Temperature Source Pulse Rate 113 H Respiratory Rate Respiratory Effort Respiratory Depth Respiratory Pattern Blood Pressure Blood Pressure Mean Pulse Ox 98 Oxygen Delivery Method Room Air Positive well nourished, well developed and obese; Negative for cachectic or contractures General Appearance ED: well developed and NAD; Negative for cachectic, contractures, cyanotic, diaphoretic or pallor Nutritional Appearance: obese; Negative for cachectic HEENT Reports moist mucous membranes; Denies dry mucous membranes normocephalic and atraumatic; Negative for scalp tenderness Face and Sinus: Negative for sinus tenderness Mouth ED: No dry mucous membranes Mouth: No dry mucous membranes Teeth and Gingiva: Negative for caries Throat: posterior oropharynx normal Eyes PERRL and EOMs intact bilaterally General Eye ED: Negative for pale conjunctiva or scleral icterus Neck no lymphadenopathy, supple, no meningeal signs and no JVD General: Negative for anterior neck swelling or lymphadenopathy Resp normal respiratory effort and clear to auscultation bilaterally Effort and Inspection: Negative for retractions Auscultation: Negative for rales, rhonchi or wheezes Cardio S1 normal heart sound, S2 normal heart sound and no murmurs Rate: tachycardic; Negative for regular rate or bradycardia Rhythm: regular rhythm GI non-tender, non-distended and no masses Inspection: Negative for abdominal distention Auscultation: normoactive bowel sounds Palpation: soft; Negative for tender or guarding Back/Spine no CVA tenderness and normal ROM General Back: Negative for CVA tenderness Cervical Spine: Negative for cervical spine tenderness Thoracic Spine / Upper Back: Negative for thoracic spinal tenderness Lumbar Spine / Lower Back: Negative for lumbar spinal tenderness Sacrum: Negative for tenderness Extremity normal to inspection and full ROM General Extremety ED: Negative for cyanosis or tenderness General Extremity: Negative for cyanosis Neuro oriented x3 and CN's II-XII intact bilaterally Sensorium / Orientation: alert, oriented to person, oriented to place and oriented to time; Negative for orientation impaired, lethargic or stuporous Motor Exam: strength 5/5 throughout Psych Appearance: Negative for other Attitude: No agitated Mood & Affect: Negative for depressed, anxious or tearful Skin General Skin Exam: Negative for jaundice or pallor Lesions: no lesions Rashes: no rashes Trauma: Negative for abrasion or laceration MDM MDM MDM Narrative Medical decision making narrative: 31-year-old female URI symptoms with twin . Treated with DuoNeb aerosol. Chest x-ray and shielding be done. COVID and influenza test will be obtained. Influenza and COVID were both negative. X-rays positive for at least a by lobar if multilobar pneumonia. Both of left upper and lower lobe. Possibly right hilar. Screening labs are being obtained. I will start her on Rocephin and Zithromax. I have both hospitalist and her OB on page. After discussing with the patient she actually had pneumonia and was admitted with her first . Hospitalist will treat for pneumonia and LEVER OPERATOR Dr. Portillo will admit the patient. Lab Data Attestation: I reviewed the patient's lab results. Lab results narrative: CBC White count of 5.5. H&H 11.5 and 34. Platelets 201. Labs: Laboratory Results - last 24 hr 09/17/22 10:15 WBC 5.5 RBC 4.02 L Hgb 11.5 L Hct 34.6 L MCV 86.1 MCH 28.6 MCHC 33.2 RDW Std Deviation 45.7 H RDW Coeff of Delfino 14.5 Plt Count 201 MPV 9.9 Immature Gran % (Auto) 1.100 H Neut % (Auto) 75.2 H Lymph % (Auto) 14.6 L Anderson % (Auto) 7.4 Eos % (Auto) 1.3 Baso % (Auto) 0.4 Absolute Neuts (auto) 4.2 Absolute Lymphs (auto) 0.81 L Nucleated RBC % 0 Radiography Diagnostic Testing: Clinical Impression(s) from Imaging Studies Chest X-Ray 09/17/22 08:40 IMPRESSION: Infiltrates seen in the left midlung and left lower lobe as well as in the right infrahilar region. Electronically Signed: Isai Adhikari MD at 8:52 EST , Chest x-ray, portable, single view interpreted by myself shows left upper and lower lobe pneumonia. Possibly right hilar. Also read by the radiologist agrees. Discharge Plan Triage Chief Complaint: Shortness of Breath ED Provider: Kal Toney Dx/Rx/DC Orders Clinical Impression: Pneumonia complicating in third trimester, Twin Prescriptions: No Action (DME) lancets [BD Ultra Fine Lancets] 33 gauge misc See Rx Instructions .MEDSUPPLY Qty: 100 8RF Rx Instructions: As directed (DME) lancets Misc See Rx Instructions .MEDSUPPLY Qty: 100 8RF Rx Instructions: As directed folic acid 400 mcg Tablet 0.4 mg PO DAILY aspirin [Aspirin Low-Strength] 81 mg Tablet,Delayed Release (Dr/Ec) 81 mg PO DAILY ferrous sulfate [iron] 325 mg (65 mg iron) Tablet 325 mg PO DAILY metformin 500 mg tablet 500 mg PO TID Complete Radha DHA [id number] mg combo pack 1 pkg PO DAILY (DME) blood-glucose meter Misc See Rx Instructions miscellaneous .MEDSUPPLY Qty: 150 6RF Rx Instructions: As directed Check BS fasting and 2 hours after meals(4x/day) (DME) Blood Glucose Test Strip See Rx Instructions .Route Qty: 150 6RF Rx Instructions: 4 times daily (DME) T.E.D. Anti-Embolism Stocking Misc See Rx Instructions .Route Qty: 1 0RF Rx Instructions: 20-30mmg kneehigh compression Primary Care Provider: Sonia Davila Referrals: Sonia Davila MD [Primary Care Provider] -
[2022-09-17] MEDS: Ipratropium/Albuterol Sulfate 3 ML AMPUL.NEB INHALATION (08:19)
--- NOTE | 2022-09-17 08:40 | RAD_ITS ---
STUDY: X-RAY CHEST REASON FOR EXAM: Female, 31 years old. cough. Shield abd TECHNIQUE: Single AP portable view of the chest. COMPARISON: Comparison is made with prior study 01/04/2021. FINDINGS: Infiltrate is seen in the left midlung and left lower lobe. Focal infiltrate is also seen in the right infrahilar region. There is no demonstrated pleural abnormality. Normal size heart. Normal mediastinum and esha. Normal visualized pulmonary arteries. Normal visualized aortic arch and descending thoracic aorta. Normal visualized thoracic spine. Normal visualized ribs, clavicles, and shoulders. There is no demonstrated abnormality of the visualized soft tissue structures of the upper abdomen. RAD/Chest 1 View IMPRESSION: Infiltrates seen in the left midlung and left lower lobe as well as in the right infrahilar region. Electronically Signed: Isai Adhikari MD at 8:52 EST ,
--- NOTE | 2022-09-17 10:26 | CON.PCM.HO_ITS ---
Assessment & Plan Assessment/Plan (1) Pneumonia complicating in third trimester: PLAN: Plan This is 31-year-old female is being admitted for bilateral pneumonia during third trimester of . 1. Bilateral pneumonia: Patient is being admitted on MedSurg floor under BRIQUETTING MACHINE OPERATOR service. IV fluid normal saline 75 mill per hour for 1 L. IV ceftriaxone and Zithromax to continue. Pneumonia work-up including urinary antigen, MRSA nasal screen and respiratory panel ordered. Patient did not had COVID-vaccine. She had influenza vaccine. 2. Twin , 4TH with history of second complicated with preeclampsia: Patient blood pressure is in acceptable limit 134/78. Her BP was normal after second . Patient does not have access edematous legs. Will order UA to look for proteinuria. Further recommendation as per BRIQUETTING MACHINE OPERATOR attending. 3. Gestational diabetes: Glucose in BMP is 84. Further follow-up as per BRIQUETTING MACHINE OPERATOR. VTE prophylaxis, moderate to high risk: Heparin 500 subcutaneous 3 times daily. Discontinue if platelet count drops less than 50,000 or hemoglobin less than 8 g% Full code. HPI Consult Data Date of Consult: 09/17/22 Attending Care Provider: Dr. Delicia Portillo HPI Narrative Reason for Consultation: Pneumonia management, URI and cough for 1 week but got worse for last 1 day HPI Narrative: MICHELLE MURGUIA, is a 31 F who who is 26 completed weeks came to ED for 1 week mild cough, URI symptoms and nasal congestion. For last 1 day her cough got more severe, chest congestion, postnasal drip and shortness of breath. She also had mild wheezing. Denies chest pressure or pain. She had history of asthma during childhood but she grew out of it adult life. She denies any smoking. Denies any chronic lung disease or heart disease. This is her third and twin . Her first was overdue and sec ond she had preeclampsia and was induced at 36 weeks. She was found to have gestational diabetes. Her blood pressure was elevated during preeclampsia in second but was normal afterwards. She is not diagnosed with hypertension. In ED,Chest x-ray was done which initially reviewed shows bilateral pneumonia, infiltrates in left midlung/lingular lobe and left lower lobe and right infrahilar area. Vitals shows tachycardia, heart rate 113, afebrile no tachypnea or hypoxia. Patient started on IV ceftriaxone and Zithromax and getting admitted on MedSurg floor. Family history: Mother mother has metabolic syndrome diabetes. Father has bipolar disorder. Social history: Denies smoking, chronic substance use. No heavy drinking of alcohol. [facility] Medical History PCOS (polycystic ovarian syndrome) Home Medications lancets #100 ea 07/01/22 [Rx Last Taken Unknown] lancets 33 gauge (BD Ultra Fine Lancets) #100 ea 07/01/22 [Rx Last Taken Unknown] blood sugar diagnostic (Blood Glucose Test strips) #150 ea 07/23/22 [Rx Last Taken Unknown] blood-glucose meter #150 ea 07/23/22 [Rx Last Taken Unknown] lauren.stocking,knee,reg,smal (T.E.D. Anti-Embolism Stocking) #1 ea 09/08/22 [Rx Last Taken Unknown] PNV-iron 29 mg-folic acid 1 mg-omega3 250 mg-dha 200mg oral combo pack (Complete DHA) 1 pkg PO DAILY SUPPLEMENT 09/17/22 [History Last Taken 09/17/22 07:00] aspirin 81 mg tablet,delayed release 81 mg PO DAILY heart health 09/17/22 [History Last Taken 09/17/22 07:00] ferrous sulfate 325 mg (65 mg iron) tablet (iron) 325 mg PO DAILY SUPPLEMENT 09/17/22 [History Last Taken 09/17/22 07:00] folic acid 400 mcg tablet 0.4 mg PO DAILY SUPPLEMENT 09/17/22 [History Last Taken 09/17/22 07:00] metformin 500 mg tablet 500 mg PO TID PCOS 09/17/22 [History Last Taken 09/17/22 07:00] Allergy/AdvReac Type Severity Reaction Status Date / Time codeine AdvReac Other Verified 09/17/22 07:49 Family History Grandfather Diabetes Mother Hypertension Hyperlipidemia Metabolic syndrome Surgical History delivery delivered H/O knee surgery History of tonsillectomy Hx of cholecystectomy Social History adopted: No household members: spouse and children housing: house number of children: 2 current occupational status: employed 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- [employer] current occupational exposures/hazards: No pets and animals: Yes pets and animals: dog(s) history of recent travel: No sexually active: Yes Smoking Status: Never smoker alcohol intake: never substance use type: does not use well-balanced diet: daily or most days caffeine: No eating out: rarely or never during the past year weight has: remained stable what type of physical activity do you participate in: none and walking frequency: 3-4 times per week duration: 15-30 minutes/day adri/latter day: None seatbelt use: always do you feel safe at home: Yes additional social history: Patient works for [employer] ROS Narrative Constitutional: Reports fatigue. No fever. BMI 47.7 kg/m? with twin but is morbidly obese. HEENT: Reports systems reviewed and no addt'l complaints, except as documented Respiratory/Chest: As described in HPI Gastrointestinal: Patient had nausea and vomiting, gestational emesis during first trimester. Currently does not have nausea vomiting diarrhea. Denies coffee ground emesis, hematemesis or melena Genitourinary: Had UTI/congestion about 1 week and she took Keflex. Currently denies burning urination or new urinary tract symptoms Musculoskeletal: Denies joint pain and limited range of motion Neurologic: Denies seizure-like activity. No focal weakness or acute neurological symptoms skin: No ulcer. No rash Endocrinology: Morbid obesity. Reports systems reviewed and no addt'l complai nts, except as documented Hematologic/Lymphatic: Reports systems reviewed and no addt'l complaints, except as documented Rest 14 ROS are negative except as mentioned in HPI Physical Exam Narrative General: Alert, Oriented x3, Cooperative, BMI 47.7 kg/m?, morbid obese HEENT: Atraumatic, PERRLA, EOMI, Normocephalic Oral: Deep oropharyngeal structures could not be visualized. No oral ulcer. Oral mucosa dry. Neck: Supple, No JVD, Negative Carotid Bruits Lungs: Air entry diminished in bilateral lung bases. No crepitation /rhonchi/wheezing. No tachypnea or hypoxia Cardiovascular: Sinus tachycardia, Normal S1, Normal S2, No murmurs Abdomen: Bowel Sounds Present, Soft, Non Tender, Non-Distended : Gravid uterus appropriate for gestational weeks 27-week. No renal angle tenderness. No suprapubic tenderness. Extremities: Mild 1+ bilateral pitting edema, Capillary Refill Less than 3 Seconds Skin: No rashes, No breakdown Musculoskeletal: No Tenderness to Palpation of Joints or Extremities. ROM full. Neurological: Cranial nerves II-XII grossly intact, DTR 2+/4 and Symmetrical, Neuro grossly intact Psych/Mental Status: Normal Affect, Appropriate. Lab / Micro Data Result Diagrams: 09/17/22 10:15 09/17/22 10:15 Micro: Microbiology 09/17/22 08:10 Nasal Secretion SARS-CoV-2 & FLU Antigen (Rapid) - Final Radiology Impression Chest X-Ray 09/17/22 08:40 IMPRESSION: Infiltrates seen in the left midlung and left lower lobe as well as in the right infrahilar region. Electronically Signed: Isai Adhikari MD at 8:52 EST , Charges/Coding Visit Charges Office Visits / Consults: [id number] IP Consult L4
[2022-09-17 10:32] LABS: Absolute Lymphocyte Count 0.81 X10^3/uL (0.83-4.51); Absolute Neutrophil Count 4.2 X10^3/uL (2.0-7.7); Basophil# 0.02 X10^3/uL; Basophil% 0.4 % (0-1); Eosinophil# 0.07 X10^3/uL; Eosinophils% 1.3 % (0-5); Hematocrit 34.6 % (37-47); Hemoglobin 11.5 g/dL (12.0-15.0); Lymphocyte # 0.81 X10^3/ul (0.83-4.51); Lymphocyte % 14.6 % (19-41); Mean Corp Hgb Conc 33.2 g/dL (32-36); Mean Corpuscular Hgb 28.6 pg (27.0-32.0); Mean Corpuscular Volume 86.1 fL (81-99); Mean Platelet Vol. 9.9 fl (6.2-12.0); Monocyte# 0.41 X10^3/uL; Monocyte% 7.4 % (0-10); NRBC Flagged by Analyzer 0 % (0-5); Neutrophil # 4.16 X10^3/uL (2.7-7.7); Neutrophil % 75.2 % (47-70); Platelet Count 201 K/mm3 (150-450); RBC Distribution Width CV 14.5 % (11.6-14.6); RBC Distribution Width SD 45.7 fl (35.1-43.9); Red Blood Count 4.02 M/mm3 (4.2-5.4); White Blood Count 5.5 K/mm3 (4.4-11.0)
[2022-09-17] MEDS: Ceftriaxone 1 GM/50 ML BAG IV (10:34)
[2022-09-17 10:41] LABS: Anion Gap 5 (5-15); BUN 4 mg/dL (7-18); BUN/Creat Ratio 8.8 RATIO (10-20); Calcium,Total 8.5 mg/dL (8.5-10.1); Chloride 108 mmol/L (98-107); Creatinine, Serum 0.46 mg/dL (0.55-1.02); EST Glomerular Filtration Rate 171 mL/min (>60); Est Glom Filt Rate - Afr Amer 207 mL/min (>60); Estimated Creatinine Clearance 162.38 ml/min; Glucose 84 mg/dL (74-106); Potassium 3.1 mmol/L (3.5-5.1); Sodium Level 138 mmol/L (136-145)
--- NOTE | 2022-09-17 13:01 | HP.PCM.OB_ITS ---
HPI - General General Date of Admission: 09/17/22 HPI Narrative MICHELLE MURGUIA, is a 31 y/o @ 26 weeks 5 days , di/di twin gestation who presents to [facility] ER with cough, fever, chills and body aches. She was diagnosed with bilateral pneumonia. Maternal Data Information DION Calculator Estimated Delivery Date Method Current WG Current Estimate 12/19/22 LMP (Certain) 26w 5d # 2 PFSH [facility] Medical History (Updated 09/17/22 @ 13:08 by Susy Diez) Asthma PCOS (polycystic ovarian syndrome) Rheumatoid arthritis Home Medications lancets #100 ea 07/01/22 [Rx Last Taken Unknown] lancets 33 gauge (BD Ultra Fine Lancets) #100 ea 07/01/22 [Rx Last Taken Unknown] blood sugar diagnostic (Blood Glucose Test strips) #150 ea 07/23/22 [Rx Last Taken Unknown] blood-glucose meter #150 ea 07/23/22 [Rx Last Taken Unknown] lauren.stocking,knee,reg,smal (T.E.D. Anti-Embolism Stocking) #1 ea 09/08/22 [Rx Last Taken Unknown] PNV-iron 29 mg-folic acid 1 mg-omega3 250 mg-dha 200mg oral combo pack (Complete Radha DHA) 1 pkg PO DAILY SUPPLEMENT 09/17/22 [History Last Taken 09/17/22 07:00] aspirin 81 mg tablet,delayed release 81 mg PO DAILY heart health 09/17/22 [History Last Taken 09/17/22 07:00] ferrous sulfate 325 mg (65 mg iron) tablet (iron) 325 mg PO DAILY SUPPLEMENT 09/17/22 [History Last Taken 09/17/22 07:00] folic acid 400 mcg tablet 0.4 mg PO DAILY SUPPLEMENT 09/17/22 [History Last Taken 09/17/22 07:00] metformin 500 mg tablet 500 mg PO TID PCOS 09/17/22 [History Last Taken 09/17/22 07:00] Allergy/AdvReac Type Severity Reaction Status Date / Time codeine AdvReac Other Verified 09/17/22 07:49 Family History Grandfather Diabetes Mother Hypertension Hyperlipidemia Metabolic syndrome Surgical History delivery delivered H/O knee surgery History of tonsillectomy Hx of cholecystectomy Social History adopted: No household members: spouse and children housing: house number of children: 2 current occupational status: employed 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 [employer] current occupational exposures/hazards: No pets and animals: Yes pets and animals: dog(s) history of recent travel: No sexually active: Yes Smoking Status: Never smoker alcohol intake: never substance use type: does not use well-balanced diet: daily or most days caffeine: No eating out: rarely or never during the past year weight has: remained stable what type of physical activity do you participate in: none and walking frequency: 3-4 times per week duration: 15-30 minutes/day adri/scientologist: None seatbelt use: always do you feel safe at home: Yes additional social history: Patient works for [employer]- Michelle History 3 Elective abortions Hx Para 2 Spontaneous abortions Hx # Term Pregnancies Ectopic pregnancies Hx # Pregnancies Multiple births # of living children 2 Past Pregnancies Del. Date Name GA/Weeks Outcome Route Bth Weight Infant Gen Labor Lgth Anesthesia Del Locatn Provider FOB Unknown 2015 Erendira 40 live - full term Moncho Villalba 05/09/20 36 live - [facility] bakari Briggs Delivery Date: 05/09/20 Last Updated by: Delicia Crum, DO severe pre-e, breech Visit Details Expected Delivery Route/Plan RLTCS Plans Covid status: discussed Flu vaccine: discussed Tdap vaccine: [] Rhogam: [] LARC form signed: [] Problem list reviewed and updated with the most current plan of care details and appropriate orders placed. Relevant counseling for the gestational age provided. Continue routine care and follow up unless otherwise noted in visit notes/problem list details OB Flowsheet Initial Weight: Not Recorded Date -?-?-?-?-?-?-?-?-?-?-?-?- EGA Weight BP Urine Prot -?-?-?-?-?-?-?-?-?-?-?-?- Glucose FHR FuHt Pres Dilation -?-?-?-?-?-?-?-?-?-?-?-?- Effaced St Visit Note 05/11/22 -?-?-?-?-?-?-?-?-?-?-?-?- 8w 2d 290 lb 120/80 -?-?-?-?-?-?-?-?-?-?-?-?- A 165 -?-?-?-?-?-?-?-?-?-?-?-?- B 155 A -?-?-?-?-?-?-?-?-?-?-?-?- B -?-?-?--?-?-?-?-?-?-?-?-?- A -?-?-?-?-?-?-?-?-?-?-?-?- B A SM- CRL x 2 cons with each other viable -?-?-?-?-?-?-?-?-?-?-?-?- B 06/05/22 -?-?-?-?-?-?-?-?-?-?-?-?- 11w 6d 289 lb 123/78 Negative -?-?-?-?-?-?-?-?-?-?-?-?- Negative A 160 -?-?-?-?-?-?-?-?-?-?-?-?- B 160 A -?-?-?-?-?-?-?-?-?-?-?-?- B -?-?-?-?-?-?-?-?-?-?-?-?- A -?-?-?-?-?-?-?-?-?-?-?-?- B A SM- hematoma res olved no vb cramping -?-?-?-?-?-?-?-?-?-?-?-?- B 07/01/22 -?-?-?-?-?-?-?-?-?-?-?-?- 15w 4d 292 lb 8 oz 125/80 Nega tive -?-?-?-?-?-?-?-?-?-?-?-?- Negative A 153 -?-?-?-?-?-?-?-?-?-?-?-?- B 144 A -?-?--?-?-?-?-?-?-?-?-?-?- B -?-?-?-?-?-?-?-?-?-?-?-?- A -?-?-?-?-?-?-?-?-?-?-?-?- B A JV- discussed yair cardenas has type 2 dm. pt very tearfu but reassured and willing to participate. She wants to go back on the metformin now. -?-?-?-?-?-?-?-?-?-?-?-?- B 07/28/22 -?-?-?-?-?-?-?-?-?-?-?-?- 19w 3d 282 lb 4 oz 128/79 Nega tive -?-?-?-?-?-?-?-?-?-?-?-?- Negative A 157 -?-?-?-?-?-?-?-?-?-?-?-?- B 147 A -?-?-?-?-?-?-?-?-?-?-?-?- B -?-?-?-?-?-?-?-?-?-?-?-?- A -?-?-?-?-?-?-?-?-?-?-?-?- B A JV- anatomy ultr asound reviewed. Pt will return in 2 weeks for repeat views. Plan for twice weekly testing at 32 weeks. growths q 4 weeks -?-?--?-?-?-?-?-?-?-?-?-?- B 08/27/22 -?-?-?-?-?-?-?-?-?-?-?-?- 23w 5d 292 lb 6 oz 119/80 Nega tive -?-?-?-?-?-?-?-?-?-?-?-?- Negative A 135 -?-?-?-?-?-?--?-?-?-?-?-?- B 147 A Transverse -?-?-?-?-?-?-?-?-?-?-?-?- B Transverse -?-?-?-?-?-?-?-?-?-?-?-?- A -?-?-?-?-?-?-?-?-?-?-?-?- B A JV- no lof, vagi nal bleeding, or dec fm. glucose levels are stable. has growth scan with MFM on 09/17. -?-?-?-?-?-?-?-?-?-?-?-?- B NST FHR Rate Baby A Baseline: 150 Variability:: Moderate Accelerations:: 10 x 10 Decelerations:: None NST Reactive:: Yes FHR Category:: Category I FHR Rate Baby B Baseline: 145 Variability:: Moderate Accelerations:: 15 x 15 and 10 x 10 Decelerations:: None NST Reactive:: Yes FHR Category:: Category I ROS Constitutional Constitutional: Denies change in weight or poor appetite Eyes Eyes: Denies blurry vision, change in vision, seeing flashes or spots in vision ENT HEENT: Denies dizziness or loss taste/smell Cardiovascular Cardiovascular: Denies chest pain, dizziness, irregular heart rhythm, leg edema, palpitations, rapid heart rate or vomiting Respiratory/Chest Respiratory/Chest: Denies chest tightness or breast pain Gastrointestinal Gastrointestinal: Denies abdominal pain, anorexia, constipation, cramping, diarrhea, hemorrhoids, vomiting or weight changes Genitourinary Genitourinary: Denies dysuria, flank pain, genital lesions, genital pain, urinary frequency or urinary urgency Musculoskeletal Musculoskeletal: Denies back pain, difficulty walking, joint pain, limited range of motion, muscle cramps or numbness Integumentary Integumentary: Denies lesions or unusual bruising Neurologic Neurologic: Denies abnormal movements, abnormal speech, dizziness, numbness, seizure-like activity or syncope Psychiatric Psychiatric: Denies anxiety, behavioral changes, change in appetite, cognitive impairment, confusion, depression, difficulty concentrating, hallucinations or suicidal thoughts Endocrine Endocrinology: Denies excessive sweating, polydipsia or polyuria Hematologic/Lymphatic Hematologic/Lymphatic: Denies easy bleeding, easy bruising or lymphadenopathy Allergic/Immunologic Allergic/Immunologic: Denies itchy eyes, lip swelling, eczemia, wheezing or asthma Vital Signs Vital Signs Vital Signs: 09/17/22 07:49 09/17/22 07:53 09/17/22 08:20 Temperature 96.1 F L Temperature Source Temporal Pulse Rate 110 H 109 H Respiratory Rate 20 H 18 Respiratory Effort Normal Respiratory Depth Normal Respiratory Pattern Normal Normal Blood Pressure 134/78 H Blood Pressure Mean 96 Pulse Ox 96 Oxygen Delivery Method Room Air Room Air 09/17/22 10:12 09/17/22 11:39 Temperature 96.1 F L Temperature Source Temporal Pulse Rate 113 H 113 H Respiratory Rate 18 Respiratory Effort Respiratory Depth Respiratory Pattern Blood Pressure 134/78 H Blood Pressure Mean 96 Pulse Ox 98 98 Oxygen Delivery Method Room Air Room Air Weight Weight: 286 lb 14.4 oz Body Mass Index (BMI) 47.7 Physical Exam Const alert, oriented x3, no apparent distress and healthy appearing General Appearance: cooperative; Negative for anxious HEENT normocephalic Face and Sinus: normal facial exam Eyes EOMs intact bilaterally and no scleral icterus General Eye: normal appearance of both eyes Neck full ROM and supple Lymph Lymphatic: no lymphadenopathy noted Chest Chest: abnormal inspection of the chest Resp normal respiratory effort Effort and Inspection: able to speak in complete sentences Cardio regular rate GI soft to palpation and non-tender Inspection: gravid Palpation: soft; Negative for tender Back/Spine no CVA tenderness Extremity normal to inspection, full ROM and no clubbing, cyanosis or edema General Extremity: Negative for calf tenderness or edema Skin Lesions: no lesions Rashes: no rashes Psych mental status grossly normal Labs Labs Labs: Blood Type AB POSITIVE Antibody Screen NEGATIVE Hct 34.6 % (37-47) L Hgb 11.5 g/dL (12.0-15.0) L Obstetrics US Syphilis Total Ab Non-reactive Rubella IgG Antibody Reactive (Nonreactive) Hep Bs Antigen Non-Reactive (Nonreactive) Chlamydia DNA (ALMA) Negative (Negative) Neisseria gonorrhoeae DNA (ALMA) Negative (Negative) HIV 1&2 Antibody Non-Reactive (Nonreactive) Glucose 1 Hr 50 gm 154 mg/dL (70-140) H Rhogam given: No Assessment & Plan (1) Pneumonia complicating in third trimester: PLAN: admit to ms 3 with consultation to medicine to help with pneumonia treatment q day NST's, if unable to obtain tracing may order BPPs daily continuous pulse ox- keep oxygen saturation above 96% and start supplemental o2 via nasal canula when reaches 95% on RA albuterol as needed tylenol, muciex, saline nasal spray, zofran, cough drops PRN diet- diabetic diet continue pnv and metformin TID. may consult Dr. Werner if glucose levels become out of target range (fasting levels 90's) 2 hr pp 120's is the target. Try to avoid steroids if possible to avoid abnormal glucose levels. Use only if necessary. ABX for pneumonia per Medicine team greatly appreciated . (2) Twin : (3) Type 2 diabetes mellitus affecting in second trimester, antepartum: (4) Abnormal glucose: COMMENT: 3 HR GTT ordered (5) Dichorionic diamniotic twin gestation: COMMENT: seen in 1 TM. clomid . echo @ 22 wks, antenal testing 2x wkly and daily kick counts starting at 32 wks. (6) Subchorionic hematoma in first trimester: COMMENT: seen stable 1 x 2 cm area (7) Obesity affecting : COMMENT: 1 TM GCT encourage healthy weight gain (8) Previous section: COMMENT: plan RLTCS. 2 previous , 1 due to breech, 1 due to decels (9) Hx of pre-eclampsia in prior , currently : COMMENT: baby asa, baseline labs ordered (10) Supervision of high risk , antepartum: COMMENT: , DION 12/19/22, William Barrett Michelle (11) : QUALIFIERS: Weeks of gestation: 19 weeks Qualified Code(s): Z3A.19 - 19 weeks gestation of COMMENT: anatomy incomplete, serial growths every 4 wks, anatomy reviewed at next US, discussed NIPT & Carrier testing
[2022-09-17] MEDS: guaiFENesin 1,200 MG Tablet 1200 MG PO ×2 (13:24→22:21)
[2022-09-17] MEDS: Heparin Injection (Vial) 5,000 UNIT/ML VIAL 5000 UNIT SC ×2 (13:38→22:21)
[2022-09-17 16:01] LABS: Bedside Glucose 98 mg/dL (74-106)
[2022-09-17 17:13] LABS: M R Staph aureus DNA By PCR Negative (Negative); Probe Check PASS; Specimen Processing Control PASS
[2022-09-17] MEDS: metFORMIN HCl 500 MG Tablet PO (17:27)
--- NOTE | 2022-09-17 22:57 | NURSING ---
pt given ace doones, chocolate pudding, and yogurt for blood sugar of 60
--- NOTE | 2022-09-17 23:04 | NURSING ---
pt continuous pox is running 98-100% on room air
[2022-09-17 23:20] LABS: Bedside Glucose 60 mg/dL (74-106)
[2022-09-18] VITALS (15 sets, daily range): BP systolic 105–138; BP diastolic 61–72; PULSE 99–117; RESP 16–20; TEMP 36.8–37.2; O2SAT 93–100
--- NOTE | 2022-09-18 00:31 | NURSING ---
pt placed on 2l via n/c after pt fell asleep and pox dropped to 91% on room air
[2022-09-18 05:54] LABS: Absolute Neutrophil Count 4.1 X10^3/uL (2.0-7.7); Basophil# 0.03 X10^3/uL; Basophil% 0.5 % (0-1); Eosinophil# 0.14 X10^3/uL; Eosinophils% 2.5 % (0-5); Hematocrit 35.2 % (37-47); Hemoglobin 11.4 g/dL (12.0-15.0); Lymphocyte % 15.9 % (19-41); Mean Corp Hgb Conc 32.4 g/dL (32-36); Mean Corpuscular Hgb 27.9 pg (27.0-32.0); Mean Corpuscular Volume 86.1 fL (81-99); Mean Platelet Vol. 9.7 fl (6.2-12.0); Monocyte% 7.1 % (0-10); NRBC Flagged by Analyzer 0 % (0-5); Neutrophil # 4.08 X10^3/uL (2.7-7.7); Neutrophil % 72.2 % (47-70); Platelet Count 193 K/mm3 (150-450); RBC Distribution Width CV 14.6 % (11.6-14.6); RBC Distribution Width SD 45.7 fl (35.1-43.9); Red Blood Count 4.09 M/mm3 (4.2-5.4); White Blood Count 5.7 K/mm3 (4.4-11.0)
[2022-09-18 06:21] LABS: ALB/GLOB Ratio 0.6 RATIO (0.9-2.4); AST(SGOT) 12 U/L (15-37); Alanine Aminotransfer ALT/SGPT 17 U/L (13-56); Albumin, Serum 2.4 g/dL (3.2-5.0); Alkaline Phosphatase 73 U/L (45-117); Anion Gap 8 (5-15); BUN 6 mg/dL (7-18); BUN/Creat Ratio 15.5 RATIO (10-20); Calcium,Total 8.2 mg/dL (8.5-10.1); Chloride 106 mmol/L (98-107); Creatinine, Serum 0.39 mg/dL (0.55-1.02); EST Glomerular Filtration Rate 207 mL/min (>60); Est Glom Filt Rate - Afr Amer 251 mL/min (>60); Estimated Creatinine Clearance 191.52 ml/min; Globulin 3.8 g/dL (2.2-4.2); Glucose 93 mg/dL (74-106); Potassium 3.2 mmol/L (3.5-5.1); Protein, Total 6.2 g/dL (6.4-8.2); Sodium Level 137 mmol/L (136-145)
[2022-09-18] MEDS: Heparin Injection (Vial) 5,000 UNIT/ML VIAL 5000 UNIT SC ×3 (06:30→21:59)
[2022-09-18] MEDS: metFORMIN HCl 500 MG Tablet PO ×3 (08:52→16:17)
[2022-09-18] MEDS: Folic Acid 1 MG Tablet 0.5 MG PO (09:01)
[2022-09-18] MEDS: Prenatal Vits Tablet 1 TABLET PO (09:01)
[2022-09-18] MEDS: Aspirin E.C. 81 MG Tablet PO (09:01)
[2022-09-18] MEDS: guaiFENesin 600 MG Tablet PO ×2 (09:02→21:59)
[2022-09-18] MEDS: Ferrous Sulfate 325 MG Tablet PO (09:02)
--- NOTE | 2022-09-18 10:14 | CASEMGMT ---
Addendum entered by Claudia Stahl 09/18/22 10:47: Notified charge nurse of oxygen scenario and unable to have an alarm. Pt to get cont trending tonight. Green sheet on chart for oxygen. Original Note: MISHA DONATO Assessment: Face to Face with pt for initial transition planning/care coordination assessment. RN KINGA introduced self and role at [facility], pt voices understanding and consents to assessment. Pt is A/O x4 and answers all questions appropriately at this time. Pt sitting up in the chair in no distress with oxygen on. Care providers, pharmacy, and demographics verified/updated. Admitting Dx: pna PCP:Lola Specialists: Maciel, JUNIOR SYSTEMS ADMINISTRATOR; rosalva Werner Preferred Pharmacy: [facility] Insurance: [employer] Prescription Benefit: yes LNOK: Khang Christian, alize Living Arrangements: Pt lives with and 2 children in a two story house with 1 step to enter. Pt reports she is I in ADL's and denies concerns at home. Transportation: Pt drives self and denies concerns with transportation. DME/HHC/SNF: Pt has a BGM, she has sufficient supply of lancets but is awaiting [facility] to get her strips back in stock. Pt denies hx of HHC or SNF stays. Pt states no concerns with going home at time of dc. Charge nurse made MISHA DONATO aware that pt needs her pox to stay at 95% or above during this . TC to [facility], office closed, received emergency person Mayra who states she will have a wrecker driver call this RNCM to answer if this will be covered by insurance and if there is an alarm that can go off if the pt pox goes under 95%. TC joseph Amador at [facility], he states that the patient will not qualify for oxygen to be paid by insurance but they will provide to pt free of charge to keep her safe. He states there is not any alarm that will notify pt of oxygen level below 95%. Pt is aware of all of this information and that a pox will be provided to her. Pt is agreeable to [facility] services. Pt states no further concerns/needs. CM to follow. Advised pt to ask CM if any further question/concerns/needs arise, voices understanding. Pt Goal: Home Plan: Home with oxygen set up through [facility] to keep pox 95% or >.
--- NOTE | 2022-09-18 10:56 | PCM.PN.OB ---
Objective Data Objective Data Vital Signs: Vital Signs Temp Pulse Resp BP Pulse Ox O2 Del Method O2 Flow Rate 98.5 F 110 H 16 105/69 95 Nasal Cannula 2 09/18/22 08:55 09/18/22 08:55 09/18/22 08:55 09/18/22 08:55 09/18/22 09:00 09/18/22 09:00 09/18/22 08:55 Oxygen Flow Rate (L/min) 2 Oxygen Delivery Method Nasal Cannula Weight: 286 lb 14.4 oz Body Mass Index (BMI) 47.7 Intake & Output: Intake and Output for Last 24 Hours 09/16/22 09/17/22 09/18/22 23:59 23:59 23:59 Intake Total 1505 / 1505 1000 / 1000 Balance 1505 / 1505 1000 / 1000 Lab / Micro Data Result Diagrams: 09/18/22 05:43 09/18/22 05:43 Labs: Laboratory Results - last 24 hr 09/17/22 14:40: MRSA (PCR) Negative 09/17/22 15:38: POC Glucose 98 09/17/22 22:13: POC Glucose 60 L 09/18/22 05:43: WBC 5.7, RBC 4.09 L, Hgb 11.4 L, Hct 35.2 L, MCV 86.1, MCH 27.9, MCHC 32.4, RDW Std Deviation 45.7 H, RDW Coeff of Delfino 14.6, Plt Count 193, MPV 9.7, Immature Gran % (Auto) 1.800 H, Neut % (Auto) 72.2 H, Lymph % (Auto) 15.9 L, [place] % (Auto) 7.1, Eos % (Auto) 2.5, Baso % (Auto) 0.5, Absolute Neuts (auto) 4.1, Absolute Lymphs (auto) 0.90, Nucleated RBC % 0 09/18/22 05:43: Sodium 137, Potassium 3.2 L, Chloride 106, Carbon Dioxide 23.0, Anion Gap 8, BUN 6 L, Creatinine 0.39 L, Estim Creat Clear Calc 191.52, Est GFR (MDRD) Af Amer 251, Est GFR (MDRD) Non-Af 207, BUN/Creatinine Ratio 15.5, Glucose 93, Calcium 8.2 L, Total Bilirubin 0.30, AST 12 L, ALT 17, Alkaline Phosphatase 73, Total Protein 6.2 L, Albumin 2.4 L, Globulin 3.8, Albumin/Globulin Ratio 0.6 L Micro: Microbiology 09/17/22 17:30 Sputum, Expectorated/Coughed Gram Stain - Final 09/17/22 17:30 Sputum, Expectorated/Coughed Respiratory Culture - Preliminary Appears to be normal respiratory payton. Further studies to follow. 09/17/22 13:45 Mucosa - Nasopharyngeal Respiratory Panel (PCR) - Final Human [place] 09/17/22 13:35 Urine, Random Streptococcus pneumoniae Antigen (M - Final 09/17/22 13:35 Urine, Random Legionella Antigen - Final 09/17/22 08:10 Nasal Secretion SARS-CoV-2 & FLU Antigen (Rapid) - Final ROS ROS Narrative Constitutional: Reports fatigue. No fever. BMI 47.7 kg/m? with twin but is morbidly obese. HEENT: Reports systems reviewed and no addt'l complaints, except as documented Respiratory/Chest: As described in HPI Gastrointestinal: Patient had nausea and vomiting, gestational emesis during first trimester. Currently does not have nausea vomiting diarrhea. Denies coffee ground emesis, hematemesis or melena Genitourinary: Had UTI/congestion about 1 week and she took Keflex. Currently denies burning urination or new urinary tract symptoms Musculoskeletal: Denies joint pain and limited range of motion Neurologic: Denies seizure-like activity. No focal weakness or acute neurological symptoms skin: No ulcer. No rash Endocrinology: Morbid obesity. Reports systems reviewed and no addt'l complaints, except as documented Hematologic/Lymphatic: Reports systems reviewed and no addt'l complaints, except as documented Rest 14 ROS are negative except as mentioned in HPI Review of Systems ROS Unobtainable: Denies due to encephalopathy Constitutional Constitutional: Denies change in weight, chills, fever(s) or poor appetite Eyes Eyes: Denies blurry vision, change in vision, seeing flashes or spots in vision ENT HEENT: Denies dizziness, ear pain or loss taste/smell Cardiovascular Cardiovascular: Denies chest pain, dizziness, irregular heart rhythm, leg edema, palpitations, rapid heart rate or vomiting Respiratory/Chest Respiratory/Chest: Reports cough and dyspnea; Denies chest tightness or breast pain Gastrointestinal Gastrointestinal: Denies abdominal pain, anorexia, constipation, cramping, diarrhea, hemorrhoids, vomiting or weight changes Genitourinary Genitourinary: Denies dysuria, flank pain, genital lesions, genital pain, hematuria, urinary frequency or urinary urgency Musculoskeletal Musculoskeletal: Denies arthralgias, back pain, difficulty walking, joint pain, limited range of motion, muscle cramps or numbness Integumentary Integumentary: Denies lesions or unusual bruising Neurologic Neurologic: Denies abnormal movements, abnormal speech, dizziness, headache(s), numbness, seizure-like activity or syncope Psychiatric Psychiatric: Denies anxiety, behavioral changes, change in appetite, cognitive impairment, confusion, depression, difficulty concentrating, hallucinations or suicidal thoughts Endocrine Endocrinology: Denies cold intolerance, excessive sweating, polydipsia or polyuria Hematologic/Lymphatic Hematologic/Lymphatic: Denies easy bleeding, easy bruising or lymphadenopathy Allergic/Immunologic Allergic/Immunologic: Denies itchy eyes, lip swelling, tongue swelling, eczemia, wheezing or asthma Physical Exam Const alert, oriented x3, no apparent distress and healthy appearing General Appearance: cooperative; Negative for anxious HEENT normocephalic Eyes EOMs intact bilaterally and no scleral icterus General Eye: normal appearance of both eyes Neck full ROM and supple Lymph Lymphatic: no lymphadenopathy noted Chest Chest: abnormal inspection of the chest Resp normal respiratory effort Effort and Inspection: able to speak in complete sentences Cardio regular rate GI soft to palpation and non-tender Inspection: gravid Palpation: soft; Negative for tender Back/Spine no CVA tenderness Extremity normal to inspection, full ROM and no clubbing, cyanosis or edema General Extremity: Negative for calf tenderness or edema Skin Lesions: no lesions Rashes: no rashes Psych mental status grossly normal NST FHR Rate Baby A Baseline: 140-150 Variability:: Moderate Accelerations:: 10 x 10 NST Reactive:: Yes FHR Category:: Category I FHR Rate Baby B Baseline: 145-150 Variability:: Moderate Accelerations:: 10 x 10 FHR Category:: Category I Assessment & Plan (1) Pneumonia complicating in third trimester: PLAN: admit to ms 3 with consultation to medicine to help with pneumonia treatment q day NST's, if unable to obtain tracing may order BPPs daily continuous pulse ox- keep oxygen saturation above 96% and start supplemental o2 via nasal canula when reaches 95% on RA albuterol as needed. patient to be assessed for home 02 therapy due to drop in saturation over night to 91%. tylenol, muciex, saline nasal spray, zofran, cough drops PRN diet- diabetic diet continue pnv and metformin TID. may consult Dr. Werner if glucose levels become out of target range (fasting levels 90's) 2 hr pp 120's is the target. Try to avoid steroids if possible to avoid abnormal glucose levels. Use only if necessary. ABX for pneumonia per Medicine team greatly appreciated . (2) Twin : (3) Type 2 diabetes mellitus affecting in second trimester, antepartum: (4) Abnormal glucose: COMMENT: 3 HR GTT ordered (5) Dichorionic diamniotic twin gestation: COMMENT: seen in 1 TM. clomid . echo @ 22 wks, antenal testing 2x wkly and daily kick counts starting at 32 wks. (6) Subchorionic hematoma in first trimester: COMMENT: seen stable 1 x 2 cm area (7) Obesity affecting : COMMENT: 1 TM GCT encourage healthy weight gain (8) Previous section: COMMENT: plan RLTCS. 2 previous , 1 due to breech, 1 due to decels (9) Hx of pre-eclampsia in prior , currently : COMMENT: baby asa, baseline labs ordered (10) Supervision of high risk , antepartum: COMMENT: , DION 12/19/22, William Barrett Khang (11) : QUALIFIERS: Weeks of gestation: 19 weeks Qualified Code(s): Z3A.19 - 19 weeks gestation of COMMENT: anatomy incomplete, serial growths every 4 wks, anatomy reviewed at next US, discussed NIPT & Carrier testing Charges/Coding Visit Charges Inpatient E&M: 68445 Subs Hosp L3 Multi Select Codes Urinary/Genital Urinary/Genital CPT Codes: 09647-81 non-stress test Interp
--- NOTE | 2022-09-18 12:20 | NURSING ---
Pt up in chair, Blood sugar 59, pt asymptomatic, given OJ with sugar and oreos, will recheck in 15 minutes.
[2022-09-18 13:10] LABS: Bedside Glucose 59 mg/dL (74-106)
[2022-09-18 13:10] LABS: Bedside Glucose 100 mg/dL (74-106)
--- NOTE | 2022-09-18 15:46 | NURSING ---
This RN taking over care at 15:00.
--- NOTE | 2022-09-18 16:09 | PCM.PN.HOSP ---
Subjective Subjective Follow-up for pneumonia. Objective Data Objective Data Vital Signs: Vital Signs Temp Pulse Resp BP Pulse Ox O2 Del Method O2 Flow Rate 98.6 F 112 H 18 108/72 96 Room Air 2 09/18/22 14:00 09/18/22 14:00 09/18/22 14:00 09/18/22 14:00 09/18/22 14:00 09/18/22 14:00 09/18/22 08:55 Oxygen Flow Rate (L/min) 2 Oxygen Delivery Method Room Air Weight: 286 lb 14.4 oz Body Mass Index (BMI) 47.7 Intake & Output: Intake and Output for Last 24 Hours 09/16/22 09/17/22 09/18/22 23:59 23:59 23:59 Intake Total 1505 / 1505 1485 / 1485 Balance 1505 / 1505 1485 / 1485 Lab / Micro Data Result Diagrams: 09/18/22 05:43 09/18/22 05:43 Labs: Laboratory Results - last 24 hr 09/17/22 14:40: MRSA (PCR) Negative 09/17/22 22:13: POC Glucose 60 L 09/18/22 05:43: WBC 5.7, RBC 4.09 L, Hgb 11.4 L, Hct 35.2 L, MCV 86.1, MCH 27.9, MCHC 32.4, RDW Std Deviation 45.7 H, RDW Coeff of Delfino 14.6, Plt Count 193, MPV 9.7, Immature Gran % (Auto) 1.800 H, Neut % (Auto) 72.2 H, Lymph % (Auto) 15.9 L, [place] % (Auto) 7.1, Eos % (Auto) 2.5, Baso % (Auto) 0.5, Absolute Neuts (auto) 4.1, Absolute Lymphs (auto) 0.90, Nucleated RBC % 0 09/18/22 05:43: Sodium 137, Potassium 3.2 L, Chloride 106, Carbon Dioxide 23.0, Anion Gap 8, BUN 6 L, Creatinine 0.39 L, Estim Creat Clear Calc 191.52, Est GFR (MDRD) Af Amer 251, Est GFR (MDRD) Non-Af 207, BUN/Creatinine Ratio 15.5, Glucose 93, Calcium 8.2 L, Total Bilirubin 0.30, AST 12 L, ALT 17, Alkaline Phosphatase 73, Total Protein 6.2 L, Albumin 2.4 L, Globulin 3.8, Albumin/Globulin Ratio 0.6 L 09/18/22 12:11: POC Glucose 59 L 09/18/22 12:48: POC Glucose 100 Micro: Microbiology 09/17/22 17:30 Sputum, Expectorated/Coughed Gram Stain - Final 09/17/22 17:30 Sputum, Expectorated/Coughed Respiratory Culture - Preliminary Appears to be normal respiratory payton. Further studies to follow. 09/17/22 13:45 Mucosa - Nasopharyngeal Respiratory Panel (PCR) - Final Human [place] 09/17/22 13:35 Urine, Random Streptococcus pneumoniae Antigen (M - Final 09/17/22 13:35 Urine, Random Legionella Antigen - Final 09/17/22 08:10 Nasal Secretion SARS-CoV-2 & FLU Antigen (Rapid) - Final Physical Exam Narrative Patient oxygenation was 97-98% on room air during daytime but drops to 93% on room air during sleep. As per nursing staff 1 time was 91% during sleep though not documented. OB attending wants to put on oxygen so that fetus gets well oxygenation and to keep pulse ox more than 94%. Patient is morbidly obese therefore I suspect NADJA/OSH. Overall patient feels better and improvement in symptoms of shortness of breath and chest congestion. General: Alert, Oriented x3, Cooperative, BMI 47.7 kg/m?, morbid obese HEENT: Atraumatic, PERRLA, EOMI, Normocephalic Oral: Deep oropharyngeal structures could not be visualized. No oral ulcer. Oral mucosa moist. Neck: Supple, No JVD, Negative Carotid Bruits Lungs: Air entry diminished in bilateral lung bases. No crepitation/rhonchi/wheezing. No tachypnea or hypoxia Cardiovascular: Sinus tachycardia, Normal S1, Normal S2, No murmurs Abdomen: Bowel Sounds Present, Soft, Non Tender, Non-Distended : Gravid uterus appropriate for gestational weeks 27-week. No renal angle tenderness. No suprapubic tenderness. Extremities: Mild 1+ bilateral pitting edema, Capillary Refill Less than 3 Seconds Skin: No rashes, No breakdown Musculoskeletal: No Tenderness to Palpation of Joints or Extremities. ROM full. Neurological: Cranial nerves II-XII grossly intact, DTR 2+/4 and Symmetrical, Neuro grossly intact Psych/Mental Status: Normal Affect, Appropriate. Assessment & Plan Assessment/Plan (1) Pneumonia complicating in third trimester: PLAN: Plan This is 31-year-old female is being admitted for bilateral pneumonia during third trimester of . 1. Bilateral pneumonia: Patient is being admitted on MedSurg floor under NURSERYMAN ASSISTANT service. IV fluid normal saline 75 mill per hour for 1 L. IV ceftriaxone and Zithromax to continue. Pneumonia work-up including urinary antigen, MRSA nasal screen and respiratory panel ordered. Patient did not had COVID-vaccine. She had influenza vaccine. 09/18: Mild sinus tachycardia. Afebrile. Pulse ox currently 95% on room air. Advised to put on oxygen during sleep to keep pulse ox 94%. Patient feels improvement with IV antibiotics and continued. Continuous pulse oximetry. Patient will be benefited with outpatient sleep study/PFT. 2. Twin , 4TH with history of second complicated with preeclampsia: Patient blood pressure is in acceptable limit 134/78. Her BP was normal after second . Patient does not have access edematous legs. Will order UA to look for proteinuria. Further recommendation as per NURSERYMAN ASSISTANT attending. 3. Gestational diabetes: Glucose in BMP is 84. Further follow-up as per NURSERYMAN ASSISTANT. VTE prophylaxis, moderate to high risk: Heparin 500 subcutaneous 3 times daily. Discontinue if platelet count drops less than 50,000 or hemoglobin less than 8 g% Full code. Charges/Coding Visit Charges Inpatient E&M: 68295 Subs Hosp L2
[2022-09-18 16:36] LABS: Bedside Glucose 82 mg/dL (74-106)
[2022-09-18 22:30] LABS: Bedside Glucose 81 mg/dL (74-106)
[2022-09-19 02:53] VITALS: BP 119/66; PULSE 92; RESP 18; TEMP 36.7; O2SAT 96
[2022-09-19 02:54] VITALS: O2SAT 96
[2022-09-19 05:59] VITALS: O2SAT 95
[2022-09-19] MEDS: Heparin Injection (Vial) 5,000 UNIT/ML VIAL 5000 UNIT SC (06:02)
[2022-09-19 06:26] LABS: Bedside Glucose 74 mg/dL (74-106)
--- NOTE | 2022-09-19 07:16 | PCM.PN.OB ---
Subjective Subjective Patient doing well feeling better breathing well, stable symptoms, no calf pain/swelling, fevers, chills, lightheadedness. no drop in sats overnight Objective Data Objective Data Vital Signs: Vital Signs Temp Pulse Resp BP Pulse Ox O2 Del Method O2 Flow Rate 98.0 F 92 18 119/66 95 Room Air 2 09/19/22 02:53 09/19/22 02:53 09/19/22 02:53 09/19/22 02:53 09/19/22 05:59 09/19/22 05:59 09/18/22 08:55 FiO2 21 09/18/22 22:15 Oxygen Flow Rate (L/min) 2 Oxygen Delivery Method Room Air Weight: 130.136 kg Body Mass Index (BMI) 47.7 Intake & Output: Intake and Output for Last 24 Hours 09/17/22 09/18/22 09/19/22 23:59 23:59 23:59 Intake Total 1505 / 1505 1725 / 2025 1000 / 1000 Balance 1505 / 1505 1725 / 5 1000 / 1000 Lab / Micro Data Result Diagrams: 09/18/22 05:43 09/18/22 05:43 Labs: Laboratory Results - last 24 hr 09/18/22 12:11: POC Glucose 59 L 09/18/22 12:48: POC Glucose 100 09/18/22 16:15: POC Glucose 82 09/18/22 21:57: POC Glucose 81 09/19/22 05:58: POC Glucose 74 Micro: Microbiology 09/17/22 17:30 Sputum, Expectorated/Coughed Gram Stain - Final 09/17/22 17:30 Sputum, Expectorated/Coughed Respiratory Culture - Preliminary Appears to be normal respiratory payton. Further studies to follow. 09/17/22 13:45 Mucosa - Nasopharyngeal Respiratory Panel (PCR) - Final Human [place] 09/17/22 13:35 Urine, Random Streptococcus pneumoniae Antigen (M - Final 09/17/22 13:35 Urine, Random Legionella Antigen - Final 09/17/22 08:10 Nasal Secretion SARS-CoV-2 & FLU Antigen (Rapid) - Final ROS Constitutional Constitutional: Denies change in weight, chills, fever(s) or poor appetite Eyes Eyes: Denies blurry vision, change in vision, seeing flashes or spots in vision ENT HEENT: Denies dizziness, ear pain or loss taste/smell Cardiovascular Cardiovascular: Denies chest pain, dizziness, irregular heart rhythm, leg edema, palpitations, rapid heart rate or vomiting Respiratory/Chest Respiratory/Chest: Reports cough and dyspnea; Denies chest tightness or breast pain Gastrointestinal Gastrointestinal: Denies abdominal pain, anorexia, constipation, cramping, diarrhea, hemorrhoids, vomiting or weight changes Genitourinary Genitourinary: Denies dysuria, flank pain, genital lesions, genital pain, hematuria, urinary frequency or urinary urgency Musculoskeletal Musculoskeletal: Denies arthralgias, back pain, difficulty walking, joint pain, limited range of motion, muscle cramps or numbness Integumentary Integumentary: Denies lesions or unusual bruising Physical Exam Const alert, oriented x3, no apparent distress and healthy appearing General Appearance: cooperative; Negative for anxious HEENT normocephalic Eyes EOMs intact bilaterally and no scleral icterus General Eye: normal appearance of both eyes Neck full ROM and supple Lymph Lymphatic: no lymphadenopathy noted Chest Chest: abnormal inspection of the chest Resp normal respiratory effort Effort and Inspection: able to speak in complete sentences Cardio regular rate GI soft to palpation and non-tender Inspection: gravid Palpation: soft; Negative for tender Back/Spine no CVA tenderness Extremity normal to inspection, full ROM and no clubbing, cyanosis or edema General Extremity: Negative for calf tenderness or edema Skin Lesions: no lesions Rashes: no rashes Psych mental status grossly normal Assessment & Plan (1) Pneumonia affecting in second trimester: COMMENT: admitted 09/17 for bilateral pneumonia (2) Supervision of high risk , antepartum: COMMENT: PRR , DION 12/19/22, William Barrett Khang (3) Hx of pre-eclampsia in prior , currently : COMMENT: baby asa, baseline labs ordered (4) Previous section: COMMENT: plan RLTCS. 2 previous , 1 due to breech, 1 due to decels (5) Obesity affecting : COMMENT: 1 TM GCT encourage healthy weight gain (6) Dichorionic diamniotic twin gestation: COMMENT: seen in 1 TM. clomid . echo @ 22 wks, antenal testing 2x wkly and daily kick counts starting at 32 wks. (7) Type 2 diabetes mellitus affecting in second trimester, antepartum: (8) : QUALIFIERS: Weeks of gestation: 19 weeks Qualified Code(s): Z3A.19 - 19 weeks gestation of COMMENT: anatomy incomplete, serial growths every 4 wks, anatomy reviewed at next US, discussed NIPT & Carrier testing PLAN: Plan clinically stable and improving, viral pneumonia IV antibiotics stopped will dc home today. Charges/Coding Visit Charges Inpatient E&M: 55389 Disch Hosp
[2022-09-19] MEDS: metFORMIN HCl 500 MG Tablet PO ×2 (07:51→12:23)
[2022-09-19 08:45] VITALS: O2SAT 95
[2022-09-19 09:16] VITALS: BP 137/82; PULSE 96; RESP 16; TEMP 36.6; O2SAT 97
--- NOTE | 2022-09-19 09:16 | US_ITS ---
STUDY: OBSTETRICAL ULTRASOUND - BIOPHYSICAL PROFILE REASON FOR EXAM: Female, 31 years old well being - twins LMP: Unknown. PRIOR ULTRASOUND: August 30, 2022 TECHNIQUE: Transabdominal TECHNICAL QUALITY: Adequate. FINDINGS: There is twin intrauterine gestation. Fetus A: The fetus is in a breech presentation. There is demonstrated cardiac activity with a heart rate of 143 bpm. There is a normal amniotic fluid volume. The largest amniotic fluid pocket measures 6.3 cm. The placenta is anterior in location and is not low lying. There are Grade 1 placental changes. Age by LMP: 27 weeks, 2 days. DION by LMP: December 17, 2022. BIOPHYSICAL PROFILE: Breathing Movements (FBM): 2 Gross Body Movements (GBM): 2 Tone (FT): 2 Amniotic Fluid Volume (AFV): 2 TOTAL SCORE: 8 / 8 Fetus B: The fetus is in a breech presentation. There is demonstrated cardiac activity with a heart rate of 137 bpm. There is a normal amniotic fluid volume. The largest amniotic fluid pocket measures 4.1 cm. The placenta is fundal in location. There are Grade 1 placental changes. Age by LMP: 27 weeks, 2 days. DION by LMP: December 17, 2022. BIOPHYSICAL PROFILE: Breathing Movements (FBM): 2 Gross Body Movements (GBM): 2 Tone (FT): 2 Amniotic Fluid Volume (AFV): 0 TOTAL SCORE: 6 / 8 US/Biophysical Prof W/O Non Stres IMPRESSION: Normal fetus A biophysical profile of 8/8. Abnormal fetus B biophysical profile 6/8. No breathing movements seen. Electronically Signed: Markus Ford MD at 13:01 EST ,
[2022-09-19] MEDS: Folic Acid 1 MG Tablet 0.5 MG PO (09:20)
--- NOTE | 2022-09-19 09:20 | NURSING ---
This nurse attempted to obtain a nst, Yesika CABRALrn relief charge also attempted. After not being able to get baby A on we called who ordered a bpp. xray called and they are calling in the blood bank technician. I then asked Caitlin CABRAL 3 rd fl charge to let me know when the pt goes and returns from u/s. Caitlin CABRAL has my number to return call.
[2022-09-19] MEDS: Ferrous Sulfate 325 MG Tablet PO (09:21)
[2022-09-19] MEDS: guaiFENesin 600 MG Tablet PO (09:21)
[2022-09-19] MEDS: Aspirin E.C. 81 MG Tablet PO (09:21)
--- NOTE | 2022-09-19 09:39 | PCM.PN.HOSP ---
Subjective Subjective Patient is a 31-year-old lady with high trimester of admitted with shortness of breath diagnosed with bilateral pneumonia Objective Data Objective Data Vital Signs: Vital Signs Temp Pulse Resp BP Pulse Ox O2 Del Method O2 Flow Rate 97.9 F 96 16 137/82 H 97 Room Air 2 09/19/22 09:16 09/19/22 09:16 09/19/22 09:16 09/19/22 09:16 09/19/22 09:16 09/19/22 09:16 09/18/22 08:55 FiO2 21 09/18/22 22:15 Oxygen Flow Rate (L/min) 2 Oxygen Delivery Method Room Air Weight: 130.136 kg Body Mass Index (BMI) 47.7 Intake & Output: Intake and Output for Last 24 Hours 09/17/22 09/18/22 09/19/22 23:59 23:59 23:59 Intake Total 1505 / 1505 1725 / 2025 1000 / 1000 Balance 1505 / 1505 1725 / 5 1000 / 1000 Lab / Micro Data Result Diagrams: 09/18/22 05:43 09/18/22 05:43 Labs: Laboratory Results - last 24 hr 09/18/22 12:11: POC Glucose 59 L 09/18/22 12:48: POC Glucose 100 09/18/22 16:15: POC Glucose 82 09/18/22 21:57: POC Glucose 81 09/19/22 05:58: POC Glucose 74 Micro: Microbiology 09/17/22 17:30 Sputum, Expectorated/Coughed Gram Stain - Final 09/17/22 17:30 Sputum, Expectorated/Coughed Respiratory Culture - Preliminary Appears to be normal respiratory payton. Further studies to follow. 09/17/22 13:45 Mucosa - Nasopharyngeal Respiratory Panel (PCR) - Final Human [place] 09/17/22 13:35 Urine, Random Streptococcus pneumoniae Antigen (M - Final 09/17/22 13:35 Urine, Random Legionella Antigen - Final 09/17/22 08:10 Nasal Secretion SARS-CoV-2 & FLU Antigen (Rapid) - Final Physical Exam Narrative GENERAL: cooperative HEENT: Atraumatic; normocephalic EYES; Anicteric, Normal Conjunctiva NECK; supple, normal thyroid, RESPIRATORY: Diminished to auscultation CARDIOVASCULAR: Regular S1 S2, GI: soft, normoactive bowel sounds, : Gravid uterus EXTREMITIES: No edema, no clubbing, MUSCULOSKELETAL: no muscle wasting NEURO: Awake; no lateralizing signs. SKIN: No Rash PSYCH; Flat affect Assessment & Plan Assessment/Plan (1) Human metapneumovirus (hMPV) pneumonia: PLAN: Plan Patient is a 31-year-old lady with high trimester of admitted with shortness of breath diagnosed with bilateral pneumonia 1. Pneumonia ? Secondary to viral pneumonia from Essence R pneumo virus. Patient had initially been managed with ceftriaxone as well as azithromycin for suspected bacterial pneumonia. Also placed on supplemental oxygen titrated to keep saturation greater than 90. Rocephin and azithromycin discontinued 2. Third trimester ? Management per OB 3. Gestational diabetes: Glucose in BMP is 84. Further follow-up as per WAREHOUSE SHIPPING RECEIVING CLERK. 4. VTE prophylaxis - moderate to high risk: Heparin 500 subcutaneous 3 times daily. Charges/Coding Visit Charges Inpatient E&M: 07074 Subs Hosp L2
[2022-09-19] MEDS: Prenatal Vits Tablet 1 TABLET PO (12:23)
[2022-09-19 12:40] LABS: Bedside Glucose 92 mg/dL (74-106)
--- NOTE | 2022-09-19 13:07 | DS.PCM_ITS ---
Providers Date of Admission: 09/17/22 Primary Care Physician: Dr. Sonia Davila MD Consultations 09/17/22 18:18 Consult: Hospitalist Routine Consulting Provider: Braulio Ospina Reason for Consult: medical management EMERGENT Consult: No MD Notified: Yes Date Notified: 09/17/22 Time Notified: 10:40 Method of Notification: Verbal Reason For Visit: PNEUMONIA Diagnosis Discharge Diagnosis (1) Human metapneumovirus (hMPV) pneumonia: Status: Acute Code(s): J12.3 - Human metapneumovirus pneumonia Plan clinically stable and improving, will switch to oral antibiotics if approved by medicine service and discharge for OP management. Medications at Discharge Home Medications lancets #100 ea 07/01/22 lancets 33 gauge (BD Ultra Fine Lancets) #100 ea 07/01/22 blood sugar diagnostic (Blood Glucose Test strips) #150 ea 07/23/22 blood-glucose meter #150 ea 07/23/22 [email or web address],knee,reg,smal (T.E.D. Anti-Embolism Stocking) #1 ea 09/08/22 PNV-iron 29 mg-folic acid 1 mg-omega3 250 mg-dha 200mg oral combo pack (Complete DHA) 1 pkg PO DAILY SUPPLEMENT 09/17/22 aspirin 81 mg tablet,delayed release 81 mg PO DAILY heart health 09/17/22 ferrous sulfate 325 mg (65 mg iron) tablet (iron) 325 mg PO DAILY SUPPLEMENT 09/17/22 folic acid 400 mcg tablet 0.4 mg PO DAILY SUPPLEMENT 09/17/22 metformin 500 mg tablet 500 mg PO TID PCOS 09/17/22 Hospital Course Summary of Care Provided Hospital Course: admitted for bilateral pneumonia twins, initially treated with IV antibiotics but suspecetd viral pneumonia. discharged after 2 days on RA, stable Weight / BMI Weight Weight: 130.136 kg Body Mass Index (BMI) 47.7 ABG / Lab / Microbiology Data Result Diagrams: 09/18/22 05:43 09/18/22 05:43 Laboratory: Laboratory Results - last 24 hr 09/18/22 12:11: POC Glucose 59 L 09/18/22 12:48: POC Glucose 100 09/18/22 16:15: POC Glucose 82 09/18/22 21:57: POC Glucose 81 09/19/22 05:58: POC Glucose 74 09/19/22 12:17: POC Glucose 92 Microbiology: Microbiology 09/17/22 17:30 Sputum, Expectorated/Coughed Gram Stain - Final 09/17/22 17:30 Sputum, Expectorated/Coughed Respiratory Culture - Preliminary Appears to be normal respiratory payton. Further studies to follow. 09/17/22 13:45 Mucosa - Nasopharyngeal Respiratory Panel (PCR) - Final Human [place] 09/17/22 13:35 Urine, Random Streptococcus pneumoniae Antigen (M - Final 09/17/22 13:35 Urine, Random Legionella Antigen - Final 09/17/22 08:10 Nasal Secretion SARS-CoV-2 & FLU Antigen (Rapid) - Final Radiography Diagnostic Testing: Radiology Impression Biophysical Profile Ultrasound 09/19/22 09:16 IMPRESSION: Normal fetus A biophysical profile of 05/04. Abnormal fetus B biophysical profile 03/04. No breathing movements seen. Electronically Signed: Markus Ford MD at 13:01 EST Reading Location ID and State: [address] [place] [address] , Service support , D/C Instructions Discharge Diet: No restrictions May shower in (days): 0 Weight Bearing Status: Full weight bearing Call your doctor if your incision/area has: Continuous Slow Oozing, Sudden Increased Bleeding, Increased Pain/ Swelling, Increased Redness and Foul Smell ing Discharge Call your doctor if you observe: Fever of 101 or Higher and Using more than 1 pad per hour (for 2 hours) Please Follow Up With: Talita Moreland MD When: Call [phone] to make an appointment for an incision check in 1-2 weeks. Meaningful Use Info Meaningful Use Diagnoses (Choose all that apply): None applicable Discharge Plan Admission Admit Date/Time: 09/17/22 13:04 Attending Provider: Delicia Crum Primary Care Provider: Sonia Davila Consulting Providers: Braulio Ospina ; Sree Raya Discharge Orders/Prescriptions Prescriptions: No Action (DME) lancets [BD Ultra Fine Lancets] 33 gauge misc See Rx Instructions .MEDSUPPLY Qty: 100 8RF Rx Instructions: As directed (DME) lancets Misc See Rx Instructions .MEDSUPPLY Qty: 100 8RF Rx Instructions: As directed folic acid 400 mcg Tablet 0.4 mg PO DAILY aspirin [Aspirin Low-Strength] 81 mg Tablet,Delayed Release (Dr/Ec) 81 mg PO DAILY ferrous sulfate [iron] 325 mg (65 mg iron) Tablet 325 mg PO DAILY metformin 500 mg tablet 500 mg PO TID Complete Radha DHA [id number] mg combo pack 1 pkg PO DAILY (DME) blood-glucose meter Misc See Rx Instructions miscellaneous .MEDSUPPLY Qty: 150 6RF Rx Instructions: As directed Check BS fasting and 2 hours after meals(4x/day) (DME) Blood Glucose Test Strip See Rx Instructions .Route Qty: 150 6RF Rx Instructions: 4 times daily (DME) T.E.D. Anti-Embolism Stocking Misc See Rx Instructions .Route Qty: 1 0RF Rx Instructions: 20-30mmg kneehigh compression Referrals / Follow Up: Sonia Davila MD [Primary Care Provider] -
[2022-09-19 13:37] VITALS: BP 132/78; PULSE 99; RESP 16; TEMP 36.7; O2SAT 97
== END 2022-09-19 13:48 | disposition home or self-care (01) | DRG 566 ==
LOC: ED 08:13 → MS3 23:06
PROVIDERS: Internal Medicine; Admitting Provider Obstetrics & Gynecology; Emergency Provider Emergency Medicine; PCP Internal Medicine; Visit Provider Obstetrics & Gynecology
DX: O99.512 Diseases of the respiratory system complicating pregnancy, second trimester (principal); J12.3 Human metapneumovirus pneumonia; E66.01 Morbid (severe) obesity due to excess calories; O24.415 Gestational diabetes mellitus in pregnancy, controlled by oral hypoglycemic drugs; O30.042 Twin pregnancy, dichorionic/diamniotic, second trimester; O99.212 Obesity complicating pregnancy, second trimester; Z3A.26 26 weeks gestation of pregnancy; Z79.82 Long term (current) use of aspirin; Z87.59 Personal history of other complications of pregnancy, childbirth and the puerperium
CPT/HCPCS: 36415; 59025; 59050; 71045; 76819; 80048; 80053; 82962; 85025; 87070; 87205; 87428; 87449; 87633; 87641; 94640; 94667; 94668; 94762; 99251; 99284; A4216; G0463; J0696

== ENCOUNTER 2022-10-09 11:19 | Outpatient (CLI) | payer MEDICAID, SELFPAY ==
[2022-10-09 11:49] LABS: Absolute Lymphocyte Count 1.14 X10^3/uL (0.83-4.51); Basophil# 0.04 X10^3/uL; Basophil% 0.5 % (0-1); Eosinophil# 0.04 X10^3/uL; Eosinophils% 0.5 % (0-5); Hemoglobin 11.7 g/dL (12.0-15.0); Lymphocyte # 1.14 X10^3/ul (0.83-4.51); Lymphocyte % 14.3 % (19-41); Mean Corp Hgb Conc 32.5 g/dL (32-36); Mean Corpuscular Hgb 27.8 pg (27.0-32.0); Mean Corpuscular Volume 85.5 fL (81-99); Mean Platelet Vol. 10.3 fl (6.2-12.0); Monocyte% 6.3 % (0-10); NRBC Flagged by Analyzer 0 % (0-5); Neutrophil # 5.98 X10^3/uL (2.7-7.7); Neutrophil % 75.1 % (47-70); Platelet Count 208 K/mm3 (150-450); RBC Distribution Width CV 14.2 % (11.6-14.6); RBC Distribution Width SD 43.7 fl (35.1-43.9); Red Blood Count 4.21 M/mm3 (4.2-5.4)
[2022-10-09 12:32] LABS: HIV - WCH Non-Reactive (Nonreactive); Syphilis Antibodies Non-reactive
== END 2022-10-09 23:59 | disposition home or self-care (01) ==
LOC: PAVLAB 11:20
PROVIDERS: Registered Nurse; PCP Internal Medicine; Referring Provider Obstetrics & Gynecology; Visit Provider Obstetrics & Gynecology
DX: O30.042 Twin pregnancy, dichorionic/diamniotic, second trimester (principal); O99.512 Diseases of the respiratory system complicating pregnancy, second trimester; J12.3 Human metapneumovirus pneumonia; J18.9 Pneumonia, unspecified organism; Z98.891 History of uterine scar from previous surgery; O99.212 Obesity complicating pregnancy, second trimester; O24.112 Pre-existing type 2 diabetes mellitus, in pregnancy, second trimester
CPT/HCPCS: 36415; 85025; 86703; 86780

== ENCOUNTER 2022-11-06 09:55 | Outpatient (CLI) | payer MEDICAID, SELFPAY ==
[2022-11-06 10:08] VITALS: BMI 52.5
[2022-11-06 10:19] VITALS: PULSE 102; O2SAT 97
[2022-11-06 10:24] VITALS: PULSE 101; O2SAT 97
--- NOTE | 2022-11-06 10:30 | OB.TRI.NOTE ---
HPI - General General Date of Admission: 11/06/22 Date of Service: 11/06/22 Chief Complaint: NST HPI Narrative MICHELLE MURGUIA, is a 32 F who presents to L&D for NST for di-di twins and GDM. Maternal Data Information DION Calculator Estimated Delivery Date Method Current WG Current Estimate 12/19/22 LMP (Certain) 34w 1d # 2 PFSH PFSH Medical History Asthma PCOS (polycystic ovarian syndrome) Rheumatoid arthritis Home Medications lancets #100 ea 07/01/22 [Rx Last Taken Unknown] lancets 33 gauge (BD Ultra Fine Lancets) #100 ea 07/01/22 [Rx Last Taken Unknown] blood sugar diagnostic (Blood Glucose Test strips) #150 ea 07/23/22 [Rx Last Taken Unknown] blood-glucose meter #150 ea 07/23/22 [Rx Last Taken Unknown] PNV-iron 29 mg-folic acid 1 mg-omega3 250 mg-dha 200mg oral combo pack (Complete Radha DHA) 1 pkg PO DAILY SUPPLEMENT 09/17/22 [History Last Taken 09/17/22 07:00] aspirin 81 mg tablet,delayed release 81 mg PO DAILY heart health 09/17/22 [History Last Taken 09/17/22 07:00] ferrous sulfate 325 mg (65 mg iron) tablet (iron) 325 mg PO DAILY SUPPLEMENT 09/17/22 [History Last Taken 09/17/22 07:00] folic acid 400 mcg tablet 0.4 mg PO DAILY SUPPLEMENT 09/17/22 [History Last Taken 09/17/22 07:00] metformin 500 mg tablet 500 mg PO TID PCOS 09/17/22 [History Last Taken 09/17/22 07:00] lauren.stocking,knee,reg,smal (T.E.D. 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: workforce [employer] current occupational exposures/hazards: No pets and animals: Yes pets and animals: dog(s) history of recent travel: No sexually active: Yes Smoking Status: Never smoker alcohol intake: never substance use type: does not use well-balanced diet: daily or most days caffeine: No eating out: rarely or never during the past year weight has: remained stable what type of physical activity do you participate in: none and walking frequency: 3-4 times per week duration: 15-30 minutes/day adri/spiritism: None seatbelt use: always do you feel safe at home: Yes additional social history: Patient works for [employer] History 3 Elective abortions Hx Para 2 Spontaneous abortions Hx # Term Pregnancies Ectopic pregnancies Hx # Pregnancies Multiple births # of living children 2 Past Pregnancies Del. Date Name GA/Weeks Outcome Route Bth Weight Gen Labor Lgth Anesthesia Del Locatn Provider FOB Unknown 2015 Erendira 40 live - full term Moncho Orly 05/09/20 [address] [facility] bak[facility] [place] Delivery Date: 05/09/20 Last Updated by: Delicia Crum, DO severe pre-e, breech Visit Details Expected Delivery Route/Plan RLTCS Plans Covid status: discussed Flu vaccine: discussed Tdap vaccine:discussed Rhogam: na LARC form signed: completed. Problem list reviewed and updated with the most current plan of care details and appropriate orders placed. Relevant counseling for the gestational age provided. Continue routine care and follow up unless otherwise noted in visit notes/problem list details OB Flowsheet Initial Weight: Not Recorded Date <del>?</del> EGA Weight BP Urine Prot <del>?</del> Glucose FHR FuHt Pres Dilation <del>?</del> Effaced St Visit Note 05/11/22 <del>?</del> 8w 2d 290 lb 120/80 <del>?</del> A 165 <del>?</del> B 155 A <del>?</del> B <del>?</del> A <del>?</del> B A SM- CRL x 2 cons with each other viable <del>?</del> B 06/05/22 <del>?</del> 11w 6d 289 lb 123/78 Negative <del>?</del> Negative A 160 <del>?</del> B 160 A <del>?</del> B <del>?</del> A <del>?</del> B A SM- hematoma resolved no vb cramping <del>?</del> B 07/01/22 <del>?</del> 15w 4d 292 lb 8 oz 125/80 Negative <del>?</del> Negative A 153 <del>?</del> B 144 A <del>?</del> B <del>?</del> A <del>?</del> B A JV- discussed likely has type 2 dm. pt very tearfu but reassured and willing to participate. She wants to go back on the metformin now. <del>?</del> B 07/28/22 <del>?</del> 19w 3d 282 lb 4 oz 128/79 Negative <del>?</del> Negative A 157 <del>?</del> B 147 A <del>?</del> B <del>?</del> A <del>?</del> B A JV- anatomy ultrasound reviewed. Pt will return in 2 weeks for repeat views. Plan for twice weekly testing at 32 weeks. growths q 4 weeks <del>?</del> B 08/27/22 <del>?</del> 23w 5d 292 lb 6 oz 119/80 Negative <del>?</del> Negative A 135 <del>?</del> B 147 A Transverse <del>?</del> B Transverse <del>?</del> A <del>?</del> B A JV- no lof, vaginal bleeding, or dec fm. glucose levels are stable. has growth scan with MFM on 09/17. <del>?</del> B 09/23/22 <del>?</del> 27w 4d 289 lb 6 oz 120/66 Negative <del>?</del> Negative A 144 <del>?</del> B 156 A <del>?</del> B <del>?</del> A <del>?</del> B A LC- no lof/vb/ctx. good movement. has growth scan with mfm LC- no lof/vb/ctx. good movement. has growth scan with mfm. recovering from pneumonia. <del>?</del> B 10/09/22 <del>?</del> 29w 6d 293 lb 140/84 129/84 <del>?</del> A 150 <del>?</del> B 160 A Cephalic <del>?</del> B Transverse <del>?</del> A <del>?</del> B A JV- mild elevation in bp, asymptomatic and no proteinuria <del>?</del> B 10/22/22 <del>?</del> 31w 5d 296 lb 114/73 Negative <del>?</del> Negative A 140 <del>?</del> B 150 A Cephalic <del>?</del> B Breech <del>?</del> A <del>?</del> B A SM- no vb lof good fm no regular ctx co lower swelling and intermittent VELIZ <del>?</del> B 10/30/22 <del>?</del> 32w 6d 299 lb 2 oz 135/87 Negative <del>?</del> Negative A 145 <del>?</del> B 155 A <del>?</del> B 0 <del>?</del> A <del>?</del> B A SM- patient seen for pelvic pressure- no ctx and no dilation, appears to be pelvic pain and pressure from the twin , reassurance given <del>?</del> B 11/04/22 <del>?</del> 33w 4d 304 lb 2 oz 132/81 Negative <del>?</del> Negative A 163 <del>?</del> B 155 A <del>?</del> B <del>?</del> A <del>?</del> B A LC- no pelvic pressure. growth adequate. starting 2x weekly NST with L&D. BPP on friday 05/04 for both fetuses. LC- no pelvic pressure. growth adequate. starting 2x weekly NST with L&D. BPP on friday 05/04 for both fetuses. glucose has been stable. <del>?</del> B NST FHR Rate Baby A Baseline: 130 Variability:: Moderate Accelerations:: 15 x 15 Decelerations:: None NST Reactive:: Yes FHR Rate Baby B Baseline: 140 Variability:: Moderate Accelerations:: 15 x 15 Decelerations:: None NST Reactive:: Yes FHR Category:: Category I Assessment & Plan (1) Supervision of high risk , antepartum: COMMENT: PRR , DION 12/19/22,[facility] Erendira, William Michelle (2) Previous section: COMMENT: plan RLTCS. 2 previous , 1 due to breech, 1 due to decels. RLTCS scheduled 12/07/22 @ 7:10 with SM (3) Obesity affecting : COMMENT: 1 TM GCT encourage healthy weight gain (4) Dichorionic diamniotic twin gestation: COMMENT: seen in 1 TM. clomid . echo @ 22 wks, antenal testing 2x wkly and daily kick counts starting at 32 wks. 38 week delivery, NST in L&D and Fridays @ 10 (5) Type 2 diabetes mellitus affecting in second trimester, antepartum: COMMENT: followed by Dr. Werner metformin 500mg TID PLAN: Plan reactive NST, to follow up in office. may d/c home. continue with 2x weekly NST in labor and delivery for twin . Charges/Coding Procedures Urinary/Genital [id number]: 19923-46 non-stress test Interp
--- NOTE | 2022-11-06 10:30 | OB.TRI.HP_ITS ---
HPI - General General Date of Admission: 11/06/22 Date of Service: 11/06/22 Chief Complaint: NST HPI Narrative MICHELLE MURGUIA, is a 32 F who presents to L&D for NST for di-di twins and GDM. Maternal Data Information DION Calculator Estimated Delivery Date Method Current WG Current Estimate 12/19/22 LMP (Certain) 34w 1d # 2 PFSH PFSH Medical History Asthma PCOS (polycystic ovarian syndrome) Rheumatoid arthritis Home Medications lancets #100 ea 07/01/22 [Rx Last Taken Unknown] lancets 33 gauge (BD Ultra Fine Lancets) #100 ea 07/01/22 [Rx Last Taken Unknown] blood sugar diagnostic (Blood Glucose Test strips) #150 ea 07/23/22 [Rx Last Taken Unknown] blood-glucose meter #150 ea 07/23/22 [Rx Last Taken Unknown] PNV-iron 29 mg-folic acid 1 mg-omega3 250 mg-dha 200mg oral combo pack (Complete Radha DHA) 1 pkg PO DAILY SUPPLEMENT 09/17/22 [History Last Taken 09/17/22 07:00] aspirin 81 mg tablet,delayed release 81 mg PO DAILY heart health 09/17/22 [History Last Taken 09/17/22 07:00] ferrous sulfate 325 mg (65 mg iron) tablet (iron) 325 mg PO DAILY SUPPLEMENT 09/17/22 [History Last Taken 09/17/22 07:00] folic acid 400 mcg tablet 0.4 mg PO DAILY SUPPLEMENT 09/17/22 [History Last Taken 09/17/22 07:00] metformin 500 mg tablet 500 mg PO TID PCOS 09/17/22 [History Last Taken 09/17/22 07:00] lauren.stocking,knee,reg,smal (T.E.D. 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: [employer] current occupational exposures/hazards: No pets and animals: Yes pets and animals: dog(s) history of recent travel: No sexually active: Yes Smoking Status: Never smoker alcohol intake: never substance use type: does not use well-balanced diet: daily or most days caffeine: No eating out: rarely or never during the past year weight has: remained stable what type of physical activity do you participate in: none and walking frequency: 3-4 times per week duration: 15-30 minutes/day adri/jewish: None seatbelt use: always do you feel safe at home: Yes additional social history: Patient works for [employer] History 3 Elective abortions Hx Para 2 Spontaneous abortions Hx # Term Pregnancies Ectopic pregnancies Hx # Pregnancies Multiple births # of living children 2 Past Pregnancies Del. Date Name GA/Weeks Outcome Route Bth Weight Gen Labor [facility]est[facility] FOB Unknown 2015 Erendira 40 live - full term Moncholeandra Dowellcharlene 05/09/20 [facility] [place] Delivery Date: 05/09/20 Last Updated by: Delicia Crum, DO severe pre-e, breech Visit Details Expected Delivery Route/Plan RLTCS Plans Covid status: discussed Flu vaccine: discussed Tdap vaccine:discussed Rhogam: na LARC form signed: completed. Problem list reviewed and updated with the most current plan of care details and appropriate orders placed. Relevant counseling for the gestational age provided. Continue routine care and follow up unless otherwise noted in visit notes/problem list details OB Flowsheet Initial Weight: Not Recorded Date -?-?-?-?-?-?-?-?-?-?-?-?- EGA Weight BP Urine Prot -?-?-?-?-?-?-?-?-?-?-?-?- Glucose FHR FuHt Pres Dilation -?-?-?-?-?-?-?-?-?-?-?-?- Effaced St Visit Note 05/11/22 -?-?-?-?-?-?-?-?-?-?-?-?- 8w 2d 290 lb 120/80 -?-?-?-?-?-?-?-?-?-?-?-?- A 165 -?-?-?-?-?-?-?-?-?-?-?-?- B 155 A -?-?-?-?-?-?-?-?-?-?-?-?- B -?-?-?-?-?-?-?-?-?-?-?-?- A -?-?-?-?-?-?-?-?-?-?-?-?- B A SM- CRL x 2 cons with each other viable -?-?-?-?-?-?-?-?-?-?-?-?- B 06/05/22 -?-?-?-?-?-?-?-?-?-?-?-?- 11w 6d 289 lb 123/78 Negative -?-?-?-?-?-?-?-?-?-?-?-?- Negative A 160 -?-?-?-?-?-?-?-?-?-?-?-?- B 160 A -?-?-?-?-?-?-?-?-?-?-?-?- B -?-?-?-?-?-?-?-?-?-?-?-?- A -?-?-?-?-?-?-?-?-?-?-?-?- B A SM- hematoma res olved no vb cramping -?-?-?-?-?-?-?-?-?-?-?-?- B 07/01/22 -?-?-?-?-?-?-?-?-?-?-?-?- 15w 4d 292 lb 8 oz 125/80 Nega tive -?-?-?-?-?-?-?-?-?-?-?-?- Negative A 153 -?-?-?-?-?-?-?-?-?-?-?-?- B 144 A -?-?-?-?-?-?-?-?-?-?-?-?- B -?-?-?-?-?-?-?-?-?-?-?-?- A -?-?-?-?-?-?-?-?-?-?-?-?- B A JV- discussed yair cardenas has type 2 dm. pt very tearfu but reassured and willing to participate. She wants to go back on the metformin now. -?-?-?-?-?-?-?-?-?-?-?-?- B 07/28/22 -?-?-?-?-?-?-?-?-?-?-?-?- 19w 3d 282 lb 4 oz 128/79 Nega tive -?-?-?-?-?-?--?-?-?-?-?-?- Negative A 157 -?-?-?-?-?-?-?-?-?-?-?-?- B 147 A -?-?-?-?-?-?-?-?-?-?-?-?- B -?-?-?-?-?-?-?-?-?-?-?-?- A -?-?-?-?--?-?-?-?-?-?-?-?- B A JV- anatomy ultr asound reviewed. Pt will return in 2 weeks for repeat views. Plan for twice weekly testing at 32 weeks. growths q 4 weeks -?-?-?-?-?-?-?-?-?-?-?-?- B 08/27/22 -?-?-?-?-?-?-?-?-?-?-?-?- 23w 5d 292 lb 6 oz 119/80 Nega tive -?-?-?-?-?-?-?-?-?-?-?-?- Negative A 135 -?-?-?-?-?-?-?-?-?-?-?-?- B 147 A Transverse -?-?-?-?-?-?-?-?-?-?-?-?- B Transverse -?-?-?-?-?-?-?-?-?-?-?-?- A -?-?-?-?-?-?-?-?-?-?-?-?- B A JV- no lof, vagi nal bleeding, or dec fm. glucose levels are stable. has growth scan with MFM on 09/17. -?-?-?-?-?-?-?-?-?-?-?-?- B 09/23/22 -?-?-?-?-?-?-?-?-?-?-?-?- 27w 4d 289 lb 6 oz 120/66 Nega tive -?-?-?-?-?-?-?-?-?-?-?-?- Negative A 144 -?-?-?-?-?-?-?-?-?-?-?-?- B 156 A -?-?-?-?-?-?-?-?-?-?-?-?- B -?-?-?-?-?-?-?-?-?-?-?-?- A -?-?-?-?-?-?-?-?-?-?-?-?- B A LC- no lof/vb/ct x. good movement. has growth scan with mfm LC- no lof/vb/ctx. good feta l movement. has growth scan with mfm. recovering from pneumonia. -?-?-?-?-?-?-?-?-?-?-?-?- B 10/09/22 -?-?-?-?-?-?-?-?-?-?-?-?- 29w 6d 293 lb 140/84 129/84 -?-?-?-?-?-?-?-?-?-?-?-?- A 150 -?-?-?-?-?-?-?-?-?-?-?-?- B 160 A Cephalic -?-?-?-?-?-?-?-?-?-?-?-?- B Transverse -?-?-?-?-?-?-?-?-?-?-?-?- A -?-?-?-?-?-?-?-?-?-?-?-?- B A JV- mild elevati on in bp, asymptomatic and no proteinuria -?-?-?-?-?-?-?-?-?-?-?-?- B 10/22/22 -?-?-?-?-?-?-?-?-?-?-?-?- 31w 5d 296 lb 114/73 Negative -?-?-?-?-?-?-?-?-?-?-?-?- Negative A 140 -?-?-?-?-?-?-?-?-?-?-?-?- B 150 A Cephalic -?-?-?-?-?-?-?-?-?-?-?-?- B Breech -?-?-?-?-?--?-?-?-?-?-?-?- A -?-?-?-?-?-?-?-?-?-?-?-?- B A SM- no vb lof go od fm no regular ctx co lower swelling and intermittent VELIZ -?-?-?-?-?-?-?-?-?-?-?-?- B 10/30/22 -?-?-?-?-?-?-?-?-?-?-?-?- 32w 6d 299 lb 2 oz 135/87 Nega tive -?-?-?-?-?-?-?-?-?-?-?-?- Negative A 145 -?-?-?-?-?-?-?-?-?-?-?-?- B 155 A -?-?-?-?-?-?-?-?-?-?-?-?- B 0 -?-?-?-?-?-?-?-?-?-?-?-?- A -?-?-?-?-?-?-?-?-?-?-?-?- B A SM- patient seen for pelvic pressure- no ctx and no dilation, appears to be pelvic pain and pressure from the twin , reassurance given -?-?-?-?-?-?-?-?-?-?-?-?- B 11/04/22 -?-?-?-?-?-?-?-?-?-?-?-?- 33w 4d 304 lb 2 oz 132/81 Nega tive -?-?-?-?-?-?-?-?-?-?-?-?- Negative A 163 -?-?-?-?-?-?-?-?-?-?-?-?- B 155 A -?-?-?-?-?-?-?-?-?-?-?-?- B -?-?-?-?-?-?-?-?-?-?-?-?- A -?-?-?-?-?-?-?-?-?-?-?-?- B A LC- no pelvic pr essure. growth adequate. starting 2x weekly NST with L&D. BPP on friday 05/04 for both fetuses. LC- no pelvic pressure. grow th adequate. starting 2x weekly NST with L&D. BPP on friday 05/04 for both fetuses. glucose has been stable. -?-?-?-?-?-?-?-?-?-?-?-?- B NST FHR Rate Baby A Baseline: 130 Variability:: Moderate Accelerations:: 15 x 15 Decelerations:: None NST Reactive:: Yes FHR Rate Baby B Baseline: 140 Variability:: Moderate Accelerations:: 15 x 15 Decelerations:: None NST Reactive:: Yes FHR Category:: Category I Assessment & Plan (1) Supervision of high risk , antepartum: COMMENT: PRR , DION 12/19/22,[facility] Erendira, William Michelle (2) Previous section: COMMENT: plan RLTCS. 2 previous , 1 due to breech, 1 due to decels. RLTCS scheduled 12/07/22 @ 7:10 with SM (3) Obesity affecting : COMMENT: 1 TM GCT encourage healthy weight gain (4) Dichorionic diamniotic twin gestation: COMMENT: seen in 1 TM. clomid . echo @ 22 wks, antenal testing 2x wkly and daily kick counts starting at 32 wks. 38 week delivery, NST in L&D and Fridays @ 10 (5) Type 2 diabetes mellitus affecting in second trimester, antepa rtum: COMMENT: followed by Dr. Werner metformin 500mg TID PLAN: Plan reactive NST, to follow up in office. may d/c home. continue with 2x weekly NST in labor and delivery for twin . Charges/Coding Procedures Urinary/Genital [id number]: [id number] non-stress test Interp
[2022-11-06 10:52] VITALS: PULSE 99; TEMP 37; O2SAT 97
[2022-11-06 10:53] VITALS: BP 133/68
== END 2022-11-06 11:00 | disposition home or self-care (01) ==
LOC: WPOUT 10:00 → WP 10:07
PROVIDERS: PCP Internal Medicine; Referring Provider Registered Nurse; Visit Provider Registered Nurse
DX: O30.043 Twin pregnancy, dichorionic/diamniotic, third trimester (principal); O24.913 Unspecified diabetes mellitus in pregnancy, third trimester; O99.214 Obesity complicating childbirth; O09.93 Supervision of high risk pregnancy, unspecified, third trimester; O34.219 Maternal care for unspecified type scar from previous cesarean delivery; Z3A.33 33 weeks gestation of pregnancy
CPT/HCPCS: 59025; 59050; 99221; G0378

== ENCOUNTER 2022-11-09 13:00 | Outpatient (CLI) | payer MEDICAID, SELFPAY ==
[2022-11-09 13:22] VITALS: PULSE 111; O2SAT 97
[2022-11-09 13:27] VITALS: PULSE 106; O2SAT 96
[2022-11-09 13:31] VITALS: TEMP 36.9
[2022-11-09 13:45] VITALS: BP 125/67; PULSE 103
[2022-11-09 13:47] LABS: Protein, Urine (Random) 20.1 mg/dL (<11.9); Protein:Creat Ratio 179 mg/g CRE (0-200)
[2022-11-09 13:52] LABS: Hematocrit 32.5 % (37-47); Hemoglobin 10.9 g/dL (12.0-15.0); Mean Corp Hgb Conc 33.5 g/dL (32-36); Mean Corpuscular Hgb 28.2 pg (27.0-32.0); Mean Platelet Vol. 10.3 fl (6.2-12.0); Platelet Count 169 K/mm3 (150-450); RBC Distribution Width CV 15.1 % (11.6-14.6); RBC Distribution Width SD 45.8 fl (35.1-43.9); Red Blood Count 3.87 M/mm3 (4.2-5.4); White Blood Count 6.3 K/mm3 (4.4-11.0)
--- NOTE | 2022-11-09 14:00 | OB.TRI.HP_ITS ---
HPI - General HPI Narrative MICHELLE MURGUIA, is a 32 F who presents at34+2 with contractions over the weekend, headaches and overall feeling of uneasiness. BPP obtained today at MFM 05/04 for both fetus. sent in for eval for contraction monitoring and PIH labs Maternal Data Information DION Calculator Estimated Delivery Date Method Current WG Current Estimate 12/19/22 LMP (Certain) 34w 2d # 2 PFSH PFSH Medical History Asthma PCOS (polycystic ovarian syndrome) Rheumatoid arthritis Home Medications lancets #100 ea 07/01/22 [Rx Last Taken Unknown] lancets 33 gauge (BD Ultra Fine Lancets) #100 ea 07/01/22 [Rx Last Taken Unknown] blood sugar diagnostic (Blood Glucose Test strips) #150 ea 07/23/22 [Rx Last Taken Unknown] blood-glucose meter #150 ea 07/23/22 [Rx Last Taken Unknown] PNV-iron 29 mg-folic acid 1 mg-omega3 250 mg-dha 200mg oral combo pack (Complete Radha DHA) 1 pkg PO DAILY SUPPLEMENT 09/17/22 [History Last Taken 09/17/22 07:00] aspirin 81 mg tablet,delayed release 81 mg PO DAILY heart health 09/17/22 [History Last Taken 09/17/22 07:00] ferrous sulfate 325 mg (65 mg iron) tablet (iron) 325 mg PO DAILY SUPPLEMENT 09/17/22 [History Last Taken 09/17/22 07:00] folic acid 400 mcg tablet 0.4 mg PO DAILY SUPPLEMENT 09/17/22 [History Last Taken 09/17/22 07:00] metformin 500 mg tablet 500 mg PO TID PCOS 09/17/22 [History Last Taken 09/17/22 07:00] lauren.stocking,knee,reg,smal (T.E.D. Anti-Embolism Stocking) #3 ea 10/09/22 [ Rx Last Taken Unknown] Allergy/AdvReac Type Severity Reaction Status Date / Time codeine AdvReac Other Verified 11/04/22 08:29 Family History Grandfather Diabetes Mother Hypertension Hyperlipidemia Metabolic syndrome Surgical History delivery delivered H/O knee surgery History of tonsillectomy Hx of cholecystectomy Social History adopted: No household members: spouse and children housing: house number of children: 2 current occupational status: employed current occupation: [employer] current occupational exposures/hazards: No pets and animals: Yes pets and animals: dog(s) history of recent travel: No sexually active: Yes Smoking Status: Never smoker alcohol intake: never substance use type: does not use well-balanced diet: daily or most days caffeine: No eating out: rarely or never during the past year weight has: remained stable what type of physical activity do you participate in: none and walking frequency: 3-4 times per week duration: 15-30 minutes/day adri/mu-ism: None seatbelt use: always do you feel safe at home: Yes additional social history: Patient works for [employer]- Michelle History 3 Elective abortions Hx Para 2 Spontaneous abortions Hx # Term Pregnancies Ectopic pregnancies Hx # Pregnancies Multiple births # of living children 2 Past Pregnancies Del. Date Name GA/Weeks Outcome Route Bth Weight Gen Labor Lgth Anesthesia Del Locatn Provider FOB Unknown 2015 Erendira 40 live - full term [facility] Dowellcharlene 05/09/20 36 live - [facility] bak[facility] Briggs Delivery Date: 05/09/20 Last Updated by: Delicia Crum, DO severe pre-e, breech Visit Details Expected Delivery Route/Plan RLTCS Plans Covid status: discussed Flu vaccine: discussed Tdap vaccine:discussed Rhogam: na LARC form signed: completed. Problem list reviewed and updated with the most current plan of care details and appropriate orders placed. Relevant counseling for the gestational age provided. Continue routine care and follow up unless otherwise noted in visit notes/problem list details OB Flowsheet Initial Weight: Not Recorded Date -?-?-?-?-?-?-?-?-?-?-?-?- EGA Weight BP Urine Prot -?-?-?-?--?-?-?-?-?-?-?-?- Glucose FHR FuHt Pres Dilation -?-?-?-?-?-?-?-?-?-?--?-?- Effaced St Visit Note 05/11/22 -?-?-?-?-?-?-?-?-?-?-?-?- 8w 2d 290 lb 120/80 -?-?-?-?-?-?-?-?-?-?-?-?- A 165 -?-?-?-?-?-?-?-?-?-?-?-?- B 155 A -?-?-?-?-?-?-?-?-?-?-?-?- B -?-?-?-?-?-?-?-?-?-?-?-?- A -?-?-?-?-?-?-?-?-?-?-?-?- B A SM- CRL x 2 cons with each other viable -?-?-?-?-?-?-?-?-?-?-?-?- B 06/05/22 -?-?-?-?-?-?-?-?-?-?-?-?- 11w 6d 289 lb 123/78 Negative -?-?-?-?-?-?-?-?-?-?-?-?- Negative A 160 -?-?-?-?-?-?-?-?-?-?-?-?- B 160 A -?-?-?-?-?-?-?-?-?-?-?-?- B -?-?-?-?-?-?-?-?-?-?-?-?- A -?-?-?-?-?-?-?-?-?-?-?-?- B A SM- hematoma res olved no vb cramping -?-?-?-?-?-?-?-?-?-?-?-?- B 07/01/22 -?-?-?-?-?-?-?-?-?-?-?-?- 15w 4d 292 lb 8 oz 125/80 Nega tive -?-?-?-?-?-?-?-?-?-?-?-?- Negative A 153 -?-?-?-?-?-?-?-?-?-?-?-?- B 144 A -?-?-?-?-?-?-?-?-?-?-?-?- B -?-?-?-?-?-?-?-?-?-?-?-?- A -?-?-?-?-?-?-?-?-?-?-?-?- B A JV- discussed yair cardenas has type 2 dm. pt very tearfu but reassured and willing to participate. She wants to go back on the metformin now. -?-?-?-?-?-?-?-?-?-?-?-?- B 07/28/22 -?-?-?-?-?-?-?-?-?-?-?-?- 19w 3d 282 lb 4 oz 128/79 Nega tive -?-?-?-?-?-?-?-?-?-?-?-?- Negative A 157 -?-?-?-?-?-?-?-?-?-?-?-?- B 147 A -?-?-?-?-?-?-?-?-?-?-?-?- B -?-?-?-?-?-?-?-?-?-?-?-?- A -?-?-?-?-?-?-?-?-?-?-?-?- B A JV- anatomy ultr asound reviewed. Pt will return in 2 weeks for repeat views. Plan for twice weekly testing at 32 weeks. growths q 4 weeks -?-?-?-?-?-?-?-?-?-?-?-?- B 08/27/22 -?-?-?-?-?-?-?-?-?-?-?-?- 23w 5d 292 lb 6 oz 119/80 Nega tive -?-?-?-?-?-?-?-?-?-?-?-?- Negative A 135 -?-?-?-?-?-?-?-?-?-?-?-?- B 147 A Transverse -?-?-?-?-?-?-?-?-?-?-?-?- B Transverse -?-?-?-?-?-?-?-?-?-?-?-?- A -?-?-?-?-?-?-?-?-?-?-?-?- B A JV- no lof, vagi nal bleeding, or dec fm. glucose levels are stable. has growth scan with MFM on 09/17. -?-?-?-?-?-?-?-?-?-?-?-?- B 09/23/22 -?-?-?-?-?-?-?-?-?-?-?-?- 27w 4d 289 lb 6 oz 120/66 Nega tive -?-?-?-?-?-?-?-?-?-?-?-?- Negative A 144 -?-?-?-?-?-?-?-?-?-?-?-?- B 156 A -?-?-?-?-?-?-?-?-?-?-?-?- B -?-?-?-?-?-?-?-?-?-?-?-?- A -?-?-?-?-?-?-?-?-?-?-?-?- B A LC- no lof/vb/ct x. good movement. has growth scan with mfm LC- no lof/vb/ctx. good feta l movement. has growth scan with mfm. recovering from pneumonia. -?-?-?-?-?-?-?-?-?-?-?-?- B 10/09/22 -?-?-?-?-?-?-?-?-?-?-?-?- 29w 6d 293 lb 140/84 129/84 -?-?-?-?-?-?-?-?-?-?-?-?- A 150 -?--?-?-?-?-?-?-?-?-?-?-?- B 160 A Cephalic -?-?-?-?-?-?-?-?-?-?-?-?- B Transverse -?-?-?-?-?-?-?-?-?-?-?-?- A -?-?-?-?-?-?-?-?-?-?-?-?- B A JV- mild elevati on in bp, asymptomatic and no proteinuria -?-?-?-?-?-?-?-?-?-?-?-?- B 10/22/22 -?-?-?-?-?-?-?-?-?-?-?-?- 31w 5d 296 lb 114/73 Negative -?-?-?-?-?-?-?-?-?-?-?-?- Negative A 140 -?-?-?-?-?-?-?-?-?-?-?-?- B 150 A Cephalic -?-?-?-?-?-?-?-?-?-?-?-?- B Breech -?-?-?-?-?-?-?-?-?-?-?-?- A -?-?-?-?-?-?-?-?-?-?-?-?- B A SM- no vb lof go od fm no regular ctx co lower swelling and intermittent VELIZ -?-?-?-?-?-?-?-?-?-?-?-?- B 10/30/22 -?-?-?-?-?-?--?-?-?-?-?-?- 32w 6d 299 lb 2 oz 135/87 Nega tive -?-?-?-?-?-?-?-?-?-?-?-?- Negative A 145 -?-?-?-?-?-?-?-?-?-?-?-?- B 155 A -?-?-?-?-?-?-?-?-?-?-?--?- B 0 -?-?-?-?-?-?-?-?-?-?-?-?- A -?-?-?-?-?-?-?-?-?-?-?-?- B A SM- patient seen for pelvic pressure- no ctx and no dilation, appears to be pelvic pain and pressure from the twin , reassurance given -?-?-?-?-?-?-?-?-?-?-?-?- B 11/04/22 -?-?-?-?-?-?-?-?-?-?-?-?- 33w 4d 304 lb 2 oz 132/81 Nega tive -?-?-?-?-?-?-?-?-?-?-?-?- Negative A 163 -?-?-?-?-?-?-?-?-?-?-?-?- B 155 A -?-?-?-?-?-?-?-?-?-?-?-?- B -?-?-?-?-?-?-?-?-?-?-?-?- A -?-?-?-?-?-?-?-?-?-?-?-?- B A LC- no pelvic pr essure. growth adequate. starting 2x weekly NST with L&D. BPP on friday 05/04 for both fetuses. LC- no pelvic pressure. grow th adequate. starting 2x weekly NST with L&D. BPP on friday 05/04 for both fetuses. glucose has been stable. -?-?-?-?-?-?-?-?-?-?-?-?- B NST FHR Rate Baby A Baseline: 135 loss of pick remover during initial observation Variability:: Moderate Accelerations:: 15 x 15 Decelerations:: None NST Reactive:: Yes FHR Category:: Category I Uterine Activity:: no ctx FHR Rate Baby B Baseline: 150 Variability:: Moderate Accelerations:: 15 x 15 Decelerations:: None NST Reactive:: Yes FHR Category:: Category I Uterine Activity:: no ctx Assessment & Plan (1) Hx of pre-eclampsia in prior , currently : COMMENT: baby asa, baseline labs ordered (2) Supervision of high risk , antepartum: COMMENT: PRR , DOIN 12/19/22,[facility]na Michelle (3) : QUALIFIERS: Weeks of gestation: 33 weeks Qualified Code(s): Z3A.33 - 33 weeks gestation of COMMENT: serial growths every 4 wks, anatomy reviewed. discussed NIPT & Carrier testing (4) Previous section: COMMENT: plan RLTCS. 2 previous , 1 due to breech, 1 due to decels. RLTCS scheduled 12/07/22 @ 7:10 with (5) Obesity affecting : COMMENT: 1 TM GCT encourage healthy weight gain (6) Dichorionic diamniotic twin gestation: COMMENT: seen in 1 TM. clomid . echo @ 22 wks, antenal testing 2x wkly and daily kick counts starting at 32 wks. 38 week delivery, NST in L&D and Fridays @ 10 (7) Type 2 diabetes mellitus affecting in second trimester, antepartum: COMMENT: followed by Dr. Werner metformin 500mg TID PLAN: Plan Patient presents for triage evaluation secondary to PIH/PEC evaluation twin at 34+2 weeks. FHT: Moderate variability reactive no decelerations category I tracing [place]: no Contractions Assessment and plan: PIH labs normal. Reactive NST with BPP 8/8 performed with M this AM. reassuring maternal and status patient discharged to home to follow-up in office this week has NST for tomorrow scheduled in L&D.. See problem list details for additional plan information. Charges/Coding Procedures Urinary/Genital [id number]: 03498-13 non-stress test Interp
--- NOTE | 2022-11-09 14:00 | OB.TRI.NOTE ---
HPI - General HPI Narrative MICHELLE MURGUIA, is a 32 F who presents at34+2 with contractions over the weekend, headaches and overall feeling of uneasiness. BPP obtained today at MFM 05/04 for both fetus. sent in for eval for contraction monitoring and PIH labs Maternal Data Information DION Calculator Estimated Delivery Date Method Current WG Current Estimate 12/19/22 LMP (Certain) 34w 2d # 2 PFSH PFSH Medical History Asthma PCOS (polycystic ovarian syndrome) Rheumatoid arthritis Home Medications lancets #100 ea 07/01/22 [Rx Last Taken Unknown] lancets 33 gauge (BD Ultra Fine Lancets) #100 ea 07/01/22 [Rx Last Taken Unknown] blood sugar diagnostic (Blood Glucose Test strips) #150 ea 07/23/22 [Rx Last Taken Unknown] blood-glucose meter #150 ea 07/23/22 [Rx Last Taken Unknown] PNV-iron 29 mg-folic acid 1 mg-omega3 250 mg-dha 200mg oral combo pack (Complete Rdaha DHA) 1 pkg PO DAILY SUPPLEMENT 09/17/22 [History Last Taken 09/17/22 07:00] aspirin 81 mg tablet,delayed release 81 mg PO DAILY heart health 09/17/22 [History Last Taken 09/17/22 07:00] ferrous sulfate 325 mg (65 mg iron) tablet (iron) 325 mg PO DAILY SUPPLEMENT 09/17/22 [History Last Taken 09/17/22 07:00] folic acid 400 mcg tablet 0.4 mg PO DAILY SUPPLEMENT 09/17/22 [History Last Taken 09/17/22 07:00] metformin 500 mg tablet 500 mg PO TID PCOS 09/17/22 [History Last Taken 09/17/22 07:00] lauren.stocking,knee,reg,smal (T.E.D. 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: [employer] current occupational exposures/hazards: No pets and animals: Yes pets and animals: dog(s) history of recent travel: No sexually active: Yes Smoking Status: Never smoker alcohol intake: never substance use type: does not use well-balanced diet: daily or most days caffeine: No eating out: rarely or never during the past year weight has: remained stable what type of physical activity do you participate in: none and walking frequency: 3-4 times per week duration: 15-30 minutes/day adri/adventist: None seatbelt use: always do you feel safe at home: Yes additional social history: Patient works for [employer]- Michelle History 3 Elective abortions Hx Para 2 Spontaneous abortions Hx # Term Pregnancies Ectopic pregnancies Hx # Pregnancies Multiple births # of living children 2 Past Pregnancies Del. Date Name GA/Weeks Outcome Route Bth Weight Infant Gen Labor Lgth Anesthesia Del Locatn Provider FOB Unknown 2015 Erendira 40 live - full term [place] 05/09/20 36 live - [facility] bakari Briggs Delivery Date: 05/09/20 Last Updated by: Delicia Crum, DO severe pre-e, breech Visit Details Expected Delivery Route/Plan RLTCS Plans Covid status: discussed Flu vaccine: discussed Tdap vaccine:discussed Rhogam: na LARC form signed: completed. Problem list reviewed and updated with the most current plan of care details and appropriate orders placed. Relevant counseling for the gestational age provided. Continue routine care and follow up unless otherwise noted in visit notes/problem list details OB Flowsheet Initial Weight: Not Recorded Date <del>?</del> EGA Weight BP Urine Prot <del>?</del> Glucose FHR FuHt Pres Dilation <del>?</del> Effaced St Visit Note 05/11/22 <del>?</del> 8w 2d 290 lb 120/80 <del>?</del> A 165 <del>?</del> B 155 A <del>?</del> B <del>?</del> A <del>?</del> B A SM- CRL x 2 cons with each other viable <del>?</del> B 06/05/22 <del>?</del> 11w 6d 289 lb 123/78 Negative <del>?</del> Negative A 160 <del>?</del> B 160 A <del>?</del> B <del>?</del> A <del>?</del> B A SM- hematoma resolved no vb cramping <del>?</del> B 07/01/22 <del>?</del> 15w 4d 292 lb 8 oz 125/80 Negative <del>?</del> Negative A 153 <del>?</del> B 144 A <del>?</del> B <del>?</del> A <del>?</del> B A JV- discussed likely has type 2 dm. pt very tearfu but reassured and willing to participate. She wants to go back on the metformin now. <del>?</del> B 07/28/22 <del>?</del> 19w 3d 282 lb 4 oz 128/79 Negative <del>?</del> Negative A 157 <del>?</del> B 147 A <del>?</del> B <del>?</del> A <del>?</del> B A JV- anatomy ultrasound reviewed. Pt will return in 2 weeks for repeat views. Plan for twice weekly testing at 32 weeks. growths q 4 weeks <del>?</del> B 08/27/22 <del>?</del> 23w 5d 292 lb 6 oz 119/80 Negative <del>?</del> Negative A 135 <del>?</del> B 147 A Transverse <del>?</del> B Transverse <del>?</del> A <del>?</del> B A JV- no lof, vaginal bleeding, or dec fm. glucose levels are stable. has growth scan with MFM on 09/17. <del>?</del> B 09/23/22 <del>?</del> 27w 4d 289 lb 6 oz 120/66 Negative <del>?</del> Negative A 144 <del>?</del> B 156 A <del>?</del> B <del>?</del> A <del>?</del> B A LC- no lof/vb/ctx. good movement. has growth scan with mfm LC- no lof/vb/ctx. good movement. has growth scan with mfm. recovering from pneumonia. <del>?</del> B 10/09/22 <del>?</del> 29w 6d 293 lb 140/84 129/84 <del>?</del> A 150 <del>?</del> B 160 A Cephalic <del>?</del> B Transverse <del>?</del> A <del>?</del> B A JV- mild elevation in bp, asymptomatic and no proteinuria <del>?</del> B 10/22/22 <del>?</del> 31w 5d 296 lb 114/73 Negative <del>?</del> Negative A 140 <del>?</del> B 150 A Cephalic <del>?</del> B Breech <del>?</del> A <del>?</del> B A SM- no vb lof good fm no regular ctx co lower swelling and intermittent VELIZ <del>?</del> B 10/30/22 <del>?</del> 32w 6d 299 lb 2 oz 135/87 Negative <del>?</del> Negative A 145 <del>?</del> B 155 A <del>?</del> B 0 <del>?</del> A <del>?</del> B A SM- patient seen for pelvic pressure- no ctx and no dilation, appears to be pelvic pain and pressure from the twin , reassurance given <del>?</del> B 11/04/22 <del>?</del> 33w 4d 304 lb 2 oz 132/81 Negative <del>?</del> Negative A 163 <del>?</del> B 155 A <del>?</del> B <del>?</del> A <del>?</del> B A LC- no pelvic pressure. growth adequate. starting 2x weekly NST with L&D. BPP on friday 05/04 for both fetuses. LC- no pelvic pressure. growth adequate. starting 2x weekly NST with L&D. BPP on friday 05/04 for both fetuses. glucose has been stable. <del>?</del> B NST FHR Rate Baby A Baseline: 135 loss of bean picker during initial observation Variability:: Moderate Accelerations:: 15 x 15 Decelerations:: None NST Reactive:: Yes FHR Category:: Category I Uterine Activity:: no ctx FHR Rate Baby B Baseline: 150 Variability:: Moderate Accelerations:: 15 x 15 Decelerations:: None NST Reactive:: Yes FHR Category:: Category I Uterine Activity:: no ctx Assessment & Plan (1) Hx of pre-eclampsia in prior , currently : COMMENT: baby asa, baseline labs ordered (2) Supervision of high risk , antepartum: COMMENT: PRR , [facility]/19/22,[facility] Michelle (3) : QUALIFIERS: Weeks of gestation: 33 weeks Qualified Code(s): Z3A.33 - 33 weeks gestation of COMMENT: serial growths every 4 wks, anatomy reviewed. discussed NIPT & Carrier testing (4) Previous section: COMMENT: plan RLTCS. 2 previous , 1 due to breech, 1 due to decels. RLTCS scheduled 12/07/22 @ 7:10 with (5) Obesity affecting : COMMENT: 1 TM GCT encourage healthy weight gain (6) Dichorionic diamniotic twin gestation: COMMENT: seen in 1 TM. clomid . echo @ 22 wks, antenal testing 2x wkly and daily kick counts starting at 32 wks. 38 week delivery, NST in L&D and Fridays @ 10 (7) Type 2 diabetes mellitus affecting in second trimester, antepartum: COMMENT: followed by Dr. Werner metformin 500mg TID PLAN: Plan Patient presents for triage evaluation secondary to PIH/PEC evaluation twin at 34+2 weeks. FHT: Moderate variability reactive no decelerations category I tracing [place]: no Contractions Assessment and plan: PIH labs normal. Reactive NST with BPP 8 performed with MFM this AM. reassuring maternal and status patient discharged to home to follow-up in office this week has NST for tomorrow scheduled in L&D.. See problem list details for additional plan information. Charges/Coding Procedures Urinary/Genital 52xxx-[id number]: [id number] non-stress test Interp
[2022-11-09 14:27] LABS: AST(SGOT) 12 U/L (15-37); Alanine Aminotransfer ALT/SGPT 14 U/L (13-56); Creatinine, Serum 0.49 mg/dL (0.55-1.02); EST Glomerular Filtration Rate 157 mL/min (>60); Est Glom Filt Rate - Afr Amer 189 mL/min (>60); Uric Acid 4.6 mg/dL (2.6-6.0)
[2022-11-09 14:42] VITALS: BMI 56.0
== END 2022-11-09 14:51 | disposition home or self-care (01) ==
LOC: WPOUT 13:14 → WP 13:15
PROVIDERS: PCP Internal Medicine; Referring Provider Registered Nurse; Visit Provider Registered Nurse
DX: O30.049 Twin pregnancy, dichorionic/diamniotic, unspecified trimester (principal); Z87.59 Personal history of other complications of pregnancy, childbirth and the puerperium; Z3A.33 33 weeks gestation of pregnancy; O99.213 Obesity complicating pregnancy, third trimester; O24.419 Gestational diabetes mellitus in pregnancy, unspecified control
CPT/HCPCS: 36415; 59050; 82565; 82570; 84156; 84450; 84460; 84550; 85027; 99221; G0378

== ENCOUNTER 2022-11-10 09:50 | Outpatient (CLI) | payer MEDICAID, SELFPAY ==
[2022-11-10] VITALS (10 sets, daily range): BP systolic 125; BP diastolic 72; PULSE 96–101; O2SAT 96–99; BMI 56.1
--- NOTE | 2022-11-10 11:19 | OB.TRI.HP_ITS ---
HPI - General General Date of Admission: 11/10/22 HPI Narrative MICHELLE MURGUIA, is a 32 F who presents for NST due to di/di twin gestation, morbid obesity Maternal Data Information DION Calculator Estimated Delivery Date Method Current WG Current Estimate 12/19/22 LMP (Certain) 34w 3d # 2 PFSH PFSH Medical History Asthma PCOS (polycystic ovarian syndrome) Rheumatoid arthritis Home Medications lancets #100 ea 07/01/22 [Rx Last Taken Unknown] lancets 33 gauge (BD Ultra Fine Lancets) #100 ea 07/01/22 [Rx Last Taken Unknown] blood sugar diagnostic (Blood Glucose Test strips) #150 ea 07/23/22 [Rx Last Taken Unknown] blood-glucose meter #150 ea 07/23/22 [Rx Last Taken Unknown] PNV-iron 29 mg-folic acid 1 mg-omega3 250 mg-dha 200mg oral combo pack (Complete DHA) 1 pkg PO DAILY SUPPLEMENT 09/17/22 [History Last Taken 09/17/22 07:00] aspirin 81 mg tablet,delayed release 81 mg PO DAILY heart health 09/17/22 [History Last Taken 09/17/22 07:00] ferrous sulfate 325 mg (65 mg iron) tablet (iron) 325 mg PO DAILY SUPPLEMENT 09/17/22 [History Last Taken 09/17/22 07:00] folic acid 400 mcg tablet 0.4 mg PO DAILY SUPPLEMENT 09/17/22 [History Last Taken 09/17/22 07:00] metformin 500 mg tablet 500 mg PO TID PCOS 09/17/22 [History Last Taken 09/17/22 07:00] lauren.stocking,knee,reg,smal (T.E.D. Anti-Embolism Stocking) #3 ea 10/09/22 [Rx Last Taken Unknown] Allergy/AdvReac Type Severity Reaction Status Date / Time codeine AdvReac Other Verified 11/10/22 10:52 Family History Grandfather Diabetes Mother Hypertension Hyperlipidemia Metabolic syndrome Surgical History delivery delivered H/O knee surgery History of tonsillectomy Hx of cholecystectomy Social History adopted: No household members: spouse and children housing: house number of children: 2 current occupational status: employed current occupation: [employer] current occupational exposures/hazards: No pets and animals: Yes pets and animals: dog(s) history of recent travel: No sexually active: Yes Smoking Status: Never smoker alcohol intake: never substance use type: does not use well-balanced diet: daily or most days caffeine: No eating out: rarely or never during the past year weight has: remained stable what type of physical activity do you participate in: none and walking frequency: 3-4 times per week duration: 15-30 minutes/day adri/quaker: None seatbelt use: always do you feel safe at home: Yes additional social history: Patient works for [employer] Michelle History 3 Elective abortions Hx Para 2 Spontaneous abortions Hx # Term Pregnancies Ectopic pregnancies Hx # Pregnancies Multiple births # of living children 2 Past Pregnancies Del. Date Name GA/Weeks Outcome Route Bth Weight Gen Labor Lgth Anesthesia Del [facility] Provider FOB Unknown 2015 Erendira 40 live - full term Moncho Orly 05/09/20 36 live - [facility] bakari Briggs Delivery Date: 05/09/20 Last Updated by: Delicia Crum, DO severe pre-e, breech Visit Details Expected Delivery Route/Plan RLTCS Plans Covid status: discussed Flu vaccine: discussed Tdap vaccine:discussed Rhogam: na LARC form signed: completed. Problem list reviewed and updated with the most current plan of care details and appropriate orders placed. Relevant counseling for the gestational age provided. Continue routine care and follow up unless otherwise noted in visit notes/problem list details OB Flowsheet Initial Weight: Not Recorded Date -?-?-?-?-?-?-?-?-?-?-?-?- EGA Weight BP Urine Prot -?-?-?-?-?-?-?-?-?-?-?-?- Glucose FHR FuHt Pres Dilation -?-?-?-?-?-?-?-?-?-?-?-?- Effaced St Visit Note 05/11/22 -?-?-?-?-?-?-?-?-?-?-?-?- 8w 2d 290 lb 120/80 -?-?-?-?-?-?-?-?-?-?-?-?- A 165 -?-?-?-?-?-?-?-?-?-?-?-?- B 155 A -?-?-?-?-?-?-?-?-?-?-?-?- B -?-?-?-?-?-?-?-?-?-?-?-?- A -?-?-?-?-?-?-?-?-?-?-?-?- B A SM- CRL x 2 cons with each other viable -?-?-?-?-?-?-?-?-?-?-?-?- B 06/05/22 -?-?-?-?-?-?-?-?-?-?-?-?- 11w 6d 289 lb 123/78 Negative -?-?-?-?-?-?-?-?-?-?-?-?- Negative A 160 -?-?-?-?-?-?-?-?-?-?-?-?- B 160 A -?-?-?-?-?-?-?-?-?-?-?-?- B -?-?-?-?-?-?-?-?-?-?-?-?- A -?-?-?-?-?-?-?-?-?-?-?-?- B A SM- hematoma res olved no vb cramping -?-?-?-?-?-?-?-?-?-?-?-?- B 07/01/22 -?-?-?-?-?-?-?-?-?-?-?-?- 15w 4d 292 lb 8 oz 125/80 Nega tive -?-?-?-?-?-?-?--?-?-?-?-?- Negative A 153 -?-?-?-?-?-?-?-?-?-?-?-?- B 144 A -?-?-?-?-?-?-?-?-?-?-?-?- B -?-?-?-?-?-?-?-?-?-?-?-?- A -?-?-?-?-?--?-?-?-?-?-?-?- B A JV- discussed yair cardenas has type 2 dm. pt very tearfu but reassured and willing to participate. She wants to go back on the metformin now. -?-?-?-?-?-?-?-?-?-?-?-?- B 07/28/22 -?-?-?-?-?-?-?-?-?-?-?-?- 19w 3d 282 lb 4 oz 128/79 Nega tive -?-?-?-?-?-?-?-?-?-?-?-?- Negative A 157 -?-?-?-?-?-?-?-?-?-?-?-?- B 147 A -?-?-?-?-?-?-?-?-?-?-?-?- B -?-?-?-?-?-?-?-?-?-?-?-?- A -?-?-?-?-?-?-?-?-?-?-?-?- B A JV- anatomy ultr asound reviewed. Pt will return in 2 weeks for repeat views. Plan for twice weekly testing at 32 weeks. growths q 4 weeks -?-?-?-?-?-?-?-?-?-?-?-?- B 08/27/22 -?-?-?-?-?-?-?-?-?-?-?-?- 23w 5d 292 lb 6 oz 119/80 Nega tive -?-?-?-?-?-?-?-?-?-?-?-?- Negative A 135 -?-?-?-?-?-?-?-?-?-?-?-?- B 147 A Transverse -?-?-?-?-?-?-?-?-?-?-?-?- B Transverse -?-?-?-?-?-?-?-?-?-?-?-?- A -?-?-?-?-?-?-?-?-?-?-?-?- B A JV- no lof, vagi nal bleeding, or dec fm. glucose levels are stable. has growth scan with MFM on 09/17. -?-?-?-?-?-?-?-?-?-?-?-?- B 09/23/22 -?-?-?-?-?-?-?-?-?-?-?-?- 27w 4d 289 lb 6 oz 120/66 Nega tive -?-?-?-?-?-?-?-?-?-?-?-?- Negative A 144 -?-?-?-?-?-?-?-?-?-?-?-?- B 156 A -?-?-?-?-?-?-?-?-?-?-?-?- B -?-?-?-?-?-?-?-?-?-?-?-?- A -?-?-?-?-?-?-?-?-?-?-?-?- B A LC- no lof/vb/ct x. good movement. has growth scan with mfm LC- no lof/vb/ctx. good feta l movement. has growth scan with mfm. recovering from pneumonia. -?-?-?-?-?-?-?-?-?-?-?-?- B 10/09/22 -?-?-?-?-?-?-?-?-?-?-?-?- 29w 6d 293 lb 140/84 129/84 -?-?-?-?-?-?-?-?-?-?-?-?- A 150 -?-?-?-?-?-?-?-?-?-?-?-?- B 160 A Cephalic -?-?-?-?-?-?-?-?-?-?-?-?- B Transverse -?-?-?-?-?-?-?-?-?-?-?-?- A -?-?-?-?-?-?-?-?-?-?-?-?- B A JV- mild elevati on in bp, asymptomatic and no proteinuria -?-?-?-?-?-?-?-?-?-?-?-?- B 10/22/22 -?-?-?-?-?-?-?-?-?-?-?-?- 31w 5d 296 lb 114/73 Negative -?-?-?-?-?-?-?-?-?-?-?-?- Negative A 140 -?-?-?-?-?-?-?-?-?-?-?-?- B 150 A Cephalic -?-?-?-?-?-?-?-?-?-?-?-?- B Breech -?-?-?-?-?-?-?-?-?-?-?-?- A -?-?-?-?-?-?-?-?-?-?-?-?- B A SM- no vb lof go od fm no regular ctx co lower swelling and intermittent VELIZ -?-?-?-?-?-?-?-?-?-?-?-?- B 10/30/22 -?-?-?-?-?-?-?-?-?-?-?-?- 32w 6d 299 lb 2 oz 135/87 Nega tive -?-?-?-?-?-?-?-?-?-?-?-?- Negative A 145 -?-?-?-?-?-?-?-?-?-?-?-?- B 155 A -?-?-?-?-?-?-?-?-?-?-?-?- B 0 -?-?-?-?-?-?-?-?-?-?-?-?- A -?-?-?-?-?-?-?-?-?-?-?-?- B A SM- patient seen for pelvic pressure- no ctx and no dilation, appears to be pelvic pain and pressure from the twin , reassurance given -?-?-?-?-?-?-?-?-?-?-?-?- B 11/04/22 -?-?-?-?-?-?-?-?-?-?-?-?- 33w 4d 304 lb 2 oz 132/81 Nega tive -?-?-?-?-?-?-?-?-?-?-?-?- Negative A 163 -?-?-?-?-?-?-?-?-?-?-?-?- B 155 A -?-?-?-?-?-?-?-?-?-?-?-?- B -?-?-?-?-?-?-?-?-?-?-?-?- A -?-?-?-?-?-?-?-?-?-?-?-?- B A LC- no pelvic pr essure. growth adequate. starting 2x weekly NST with L&D. BPP on friday 05/04 for both fetuses. LC- no pelvic pressure. grow th adequate. starting 2x weekly NST with L&D. BPP on friday 05/04 for both fetuses. glucose has been stable. -?-?-?-?-?-?-?-?-?-?-?-?- B ROS Constitutional Constitutional: Reports systems reviewed and no addt'l complaints, except as documented Gastrointestinal Gastrointestinal: Denies bloating, constipation, cramping, diarrhea, nausea or vomiting Genitourinary Genitourinary: Reports other Details: Denies vaginal odor, vaginal bleeding, or vaginal discharge ; Denies difficulty urinating or flank pain NST FHR Rate Baby A Baseline: 150 Variability:: Moderate Accelerations:: 15 x 15 Decelerations:: None NST Reactive:: Yes FHR Category:: Category I FHR Rate Baby B Baseline: 140 Variability:: Moderate Accelerations:: 15 x 15 Decelerations:: None NST Reactive:: Yes FHR Category:: Category I Uterine Activity:: no contractions noted Assessment & Plan (1) Pneumonia affecting in second trimester: COMMENT: admitted 09/17 for bilateral pneumonia (2) : QUALIFIERS: Weeks of gestation: 33 weeks Qualified Code(s): Z3A.33 - 33 weeks gestation of COMMENT: serial growths every 4 wks, anatomy reviewed. discussed NIPT & Carrier testing (3) Supervision of high risk , antepartum: COMMENT: PRR , DION 12/19/22,[facility] Krishna [facility] whitney Quiñonez (4) Hx of pre-eclampsia in prior , currently : COMMENT: baby asa, baseline labs ordered (5) Previous section: COMMENT: plan RLTCS. 2 previous , 1 due to breech, 1 due to decels. RLTCS scheduled 12/07/22 @ 7:10 with SM (6) Obesity affecting : COMMENT: 1 TM GCT encourage healthy weight gain (7) Dichorionic diamniotic twin gestation: COMMENT: seen in 1 TM. clomid . echo @ 22 wks, antenal testing 2x wkly and daily kick counts starting at 32 wks. 38 week delivery, NST in L&D and Fridays @ 10 (8) Type 2 diabetes mellitus affecting in second trimester, antepartum: COMMENT: followed by Dr. Werner metformin 500mg TID PLAN: Plan nst reactive for both baby a and baby b. dc to home Charges/Coding Multi Select Codes Urinary/Genital Urinary/Genital CPT Codes: 64252-46 non-stress test Interp
--- NOTE | 2022-11-10 11:19 | OB.TRI.NOTE ---
HPI - General General Date of Admission: 11/10/22 HPI Narrative MICHELLE MURGUIA, is a 32 F who presents for NST due to di/di twin gestation, morbid obesity Maternal Data Information DION Calculator Estimated Delivery Date Method Current WG Current Estimate 12/19/22 LMP (Certain) 34w 3d # 2 PFSH PFSH Medical History Asthma PCOS (polycystic ovarian syndrome) Rheumatoid arthritis Home Medications lancets #100 ea 07/01/22 [Rx Last Taken Unknown] lancets 33 gauge (BD Ultra Fine Lancets) #100 ea 07/01/22 [Rx Last Taken Unknown] blood sugar diagnostic (Blood Glucose Test strips) #150 ea 07/23/22 [Rx Last Taken Unknown] blood-glucose meter #150 ea 07/23/22 [Rx Last Taken Unknown] PNV-iron 29 mg-folic acid 1 mg-omega3 250 mg-dha 200mg oral combo pack (Complete DHA) 1 pkg PO DAILY SUPPLEMENT 09/17/22 [History Last Taken 09/17/22 07:00] aspirin 81 mg tablet,delayed release 81 mg PO DAILY heart health 09/17/22 [History Last Taken 09/17/22 07:00] ferrous sulfate 325 mg (65 mg iron) tablet (iron) 325 mg PO DAILY SUPPLEMENT 09/17/22 [History Last Taken 09/17/22 07:00] folic acid 400 mcg tablet 0.4 mg PO DAILY SUPPLEMENT 09/17/22 [History Last Taken 09/17/22 07:00] metformin 500 mg tablet 500 mg PO TID PCOS 09/17/22 [History Last Taken 09/17/22 07:00] lauren.stocking,knee,reg,smal (T.E.D. Anti-Embolism Stocking) #3 ea 10/09/22 [Rx Last Taken Unknown] Allergy/AdvReac Type Severity Reaction Status Date / Time codeine AdvReac Other Verified 11/10/22 10:52 Family History Grandfather Diabetes Mother Hypertension Hyperlipidemia Metabolic syndrome Surgical History delivery delivered H/O knee surgery History of tonsillectomy Hx of cholecystectomy Social History adopted: No household members: spouse and children housing: house number of children: 2 current occupational status: employed current occupation: [employer] current occupational exposures/hazards: No pets and animals: Yes pets and animals: dog(s) history of recent travel: No sexually active: Yes Smoking Status: Never smoker alcohol intake: never substance use type: does not use well-balanced diet: daily or most days caffeine: No eating out: rarely or never during the past year weight has: remained stable what type of physical activity do you participate in: none and walking frequency: 3-4 times per week duration: 15-30 minutes/day adri/hinduism: None seatbelt use: always do you feel safe at home: Yes additional social history: Patient works for [employer] Michelle History 3 Elective abortions Hx Para 2 Spontaneous abortions Hx # Term Pregnancies Ectopic pregnancies Hx # Pregnancies Multiple births # of living children 2 Past Pregnancies Del. Date Name GA/Weeks Outcome Route Bth Weight Gen Labor Lgth Anesthesia Del Locn Provider FOB Unknown 2015 Erendira 40 live - full term Moncho Villalba 05/09/20 36 live - [facility] bakari Briggs Delivery Date: 05/09/20 Last Updated by: Delicia Crum, severe pre-e, breech Visit Details Expected Delivery Route/Plan RLTCS Plans Covid status: discussed Flu vaccine: discussed Tdap vaccine:discussed Rhogam: na LARC form signed: completed. Problem list reviewed and updated with the most current plan of care details and appropriate orders placed. Relevant counseling for the gestational age provided. Continue routine care and follow up unless otherwise noted in visit notes/problem list details OB Flowsheet Initial Weight: Not Recorded Date <del>?</del> EGA Weight BP Urine Prot <del>?</del> Glucose FHR FuHt Pres Dilation <del>?</del> Effaced St Visit Note 05/11/22 <del>?</del> 8w 2d 290 lb 120/80 <del>?</del> A 165 <del>?</del> B 155 A <del>?</del> B <del>?</del> A <del>?</del> B A SM- CRL x 2 cons with each other viable <del>?</del> B 06/05/22 <del>?</del> 11w 6d 289 lb 123/78 Negative <del>?</del> Negative A 160 <del>?</del> B 160 A <del>?</del> B <del>?</del> A <del>?</del> B A SM- hematoma resolved no vb cramping <del>?</del> B 07/01/22 <del>?</del> 15w 4d 292 lb 8 oz 125/80 Negative <del>?</del> Negative A 153 <del>?</del> B 144 A <del>?</del> B <del>?</del> A <del>?</del> B A JV- discussed likely has type 2 dm. pt very tearfu but reassured and willing to participate. She wants to go back on the metformin now. <del>?</del> B 07/28/22 <del>?</del> 19w 3d 282 lb 4 oz 128/79 Negative <del>?</del> Negative A 157 <del>?</del> B 147 A <del>?</del> B <del>?</del> A <del>?</del> B A JV- anatomy ultrasound reviewed. Pt will return in 2 weeks for repeat views. Plan for twice weekly testing at 32 weeks. growths q 4 weeks <del>?</del> B 08/27/22 <del>?</del> 23w 5d 292 lb 6 oz 119/80 Negative <del>?</del> Negative A 135 <del>?</del> B 147 A Transverse <del>?</del> B Transverse <del>?</del> A <del>?</del> B A JV- no lof, vaginal bleeding, or dec fm. glucose levels are stable. has growth scan with MFM on 09/17. <del>?</del> B 09/23/22 <del>?</del> 27w 4d 289 lb 6 oz 120/66 Negative <del>?</del> Negative A 144 <del>?</del> B 156 A <del>?</del> B <del>?</del> A <del>?</del> B A LC- no lof/vb/ctx. good movement. has growth scan with mfm LC- no lof/vb/ctx. good movement. has growth scan with mfm. recovering from pneumonia. <del>?</del> B 10/09/22 <del>?</del> 29w 6d 293 lb 140/84 129/84 <del>?</del> A 150 <del>?</del> B 160 A Cephalic <del>?</del> B Transverse <del>?</del> A <del>?</del> B A JV- mild elevation in bp, asymptomatic and no proteinuria <del>?</del> B 10/22/22 <del>?</del> 31w 5d 296 lb 114/73 Negative <del>?</del> Negative A 140 <del>?</del> B 150 A Cephalic <del>?</del> B Breech <del>?</del> A <del>?</del> B A SM- no vb lof good fm no regular ctx co lower swelling and intermittent VELIZ <del>?</del> B 10/30/22 <del>?</del> 32w 6d 299 lb 2 oz 135/87 Negative <del>?</del> Negative A 145 <del>?</del> B 155 A <del>?</del> B 0 <del>?</del> A <del>?</del> B A SM- patient seen for pelvic pressure- no ctx and no dilation, appears to be pelvic pain and pressure from the twin , reassurance given <del>?</del> B 11/04/22 <del>?</del> 33w 4d 304 lb 2 oz 132/81 Negative <del>?</del> Negative A 163 <del>?</del> B 155 A <del>?</del> B <del>?</del> A <del>?</del> B A LC- no pelvic pressure. growth adequate. starting 2x weekly NST with L&D. BPP on friday 05/04 for both fetuses. LC- no pelvic pressure. growth adequate. starting 2x weekly NST with L&D. BPP on friday 05/04 for both fetuses. glucose has been stable. <del>?</del> B ROS Constitutional Constitutional: Reports systems reviewed and no addt'l complaints, except as documented Gastrointestinal Gastrointestinal: Denies bloating, constipation, cramping, diarrhea, nausea or vomiting Genitourinary Genitourinary: Reports other Details: Denies vaginal odor, vaginal bleeding, or vaginal discharge ; Denies difficulty urinating or flank pain NST FHR Rate Baby A Baseline: 150 Variability:: Moderate Accelerations:: 15 x 15 Decelerations:: None NST Reactive:: Yes FHR Category:: Category I FHR Rate Baby B Baseline: 140 Variability:: Moderate Accelerations:: 15 x 15 Decelerations:: None NST Reactive:: Yes FHR Category:: Category I Uterine Activity:: no contractions noted Assessment & Plan (1) Pneumonia affecting in second trimester: COMMENT: admitted 09/17 for bilateral pneumonia (2) : QUALIFIERS: Weeks of gestation: 33 weeks Qualified Code(s): Z3A.33 - 33 weeks gestation of COMMENT: serial growths every 4 wks, anatomy reviewed. discussed NIPT & Carrier testing (3) Supervision of high risk , antepartum: COMMENT: PRR , DION 12/19/22,[facility] Erend[facility], William Michelle (4) Hx of pre-eclampsia in prior , currently : COMMENT: baby asa, baseline labs ordered (5) Previous section: COMMENT: plan RLTCS. 2 previous , 1 due to breech, 1 due to decels. RLTCS scheduled 12/07/22 @ 7:10 with (6) Obesity affecting : COMMENT: 1 TM GCT encourage healthy weight gain (7) Dichorionic diamniotic twin gestation: COMMENT: seen in 1 TM. clomid . echo @ 22 wks, antenal testing 2x wkly and daily kick counts starting at 32 wks. 38 week delivery, NST in L&D and Fridays @ 10 (8) Type 2 diabetes mellitus affecting in second trimester, antepartum: COMMENT: followed by Dr. Werner metformin 500mg TID PLAN: Plan nst reactive for both baby a and baby b. dc to home Charges/Coding Multi Select Codes Urinary/Genital Urinary/Genital CPT Codes: 40018-33 non-stress test Interp
== END 2022-11-10 11:15 | disposition home or self-care (01) ==
LOC: WPOUT 10:05 → WP 10:10
PROVIDERS: PCP Internal Medicine; Referring Provider Obstetrics & Gynecology; Visit Provider Obstetrics & Gynecology
DX: O30.049 Twin pregnancy, dichorionic/diamniotic, unspecified trimester (principal); M06.9 Rheumatoid arthritis, unspecified; O99.213 Obesity complicating pregnancy, third trimester; O99.513 Diseases of the respiratory system complicating pregnancy, third trimester; J18.9 Pneumonia, unspecified organism; Z3A.33 33 weeks gestation of pregnancy; O09.93 Supervision of high risk pregnancy, unspecified, third trimester; Z87.59 Personal history of other complications of pregnancy, childbirth and the puerperium; O24.913 Unspecified diabetes mellitus in pregnancy, third trimester; Z79.82 Long term (current) use of aspirin; Z79.899 Other long term (current) drug therapy; O99.891 Other specified diseases and conditions complicating pregnancy
CPT/HCPCS: 59025; 59050; 99221; G0378

== ENCOUNTER 2022-11-13 09:50 | Outpatient (CLI) | payer MEDICAID, SELFPAY ==
[2022-11-13] VITALS (19 sets, daily range): BP systolic 130–138; BP diastolic 62–69; PULSE 103–117; TEMP 36.4–36.7; O2SAT 96–99; BMI 52.2
[2022-11-13 18:10] LABS: Hematocrit 35.7 % (37-47); Hemoglobin 11.7 g/dL (12.0-15.0); Mean Corp Hgb Conc 32.8 g/dL (32-36); Mean Corpuscular Hgb 27.8 pg (27.0-32.0); Mean Corpuscular Volume 84.8 fL (81-99); Mean Platelet Vol. 10.8 fl (6.2-12.0); Platelet Count 215 K/mm3 (150-450); RBC Distribution Width CV 14.9 % (11.6-14.6); RBC Distribution Width SD 45.2 fl (35.1-43.9); Red Blood Count 4.21 M/mm3 (4.2-5.4); White Blood Count 8.4 K/mm3 (4.4-11.0)
[2022-11-13 18:30] LABS: AST(SGOT) 13 U/L (15-37); Alanine Aminotransfer ALT/SGPT 13 U/L (13-56); Creatinine, Serum 0.48 mg/dL (0.55-1.02); EST Glomerular Filtration Rate 162 mL/min (>60); Est Glom Filt Rate - Afr Amer 196 mL/min (>60); Estimated Creatinine Clearance 147.99 ml/min
[2022-11-13 18:34] LABS: Protein:Creat Ratio 117 mg/g CRE (0-200)
--- NOTE | 2022-11-13 20:49 | OB.TRI.HP_ITS ---
HPI - General HPI Narrative MICHELLE MURGUIA, is a 32y/o @ 34 weeks 6 days di/di twins, who presents to L&D to rule out pre-eclampsia. She reports headache and swelling in ankles at home. She was here earlier today for a scheduled NST and both babies were reactive Maternal Data Information DION Calculator Estimated Delivery Date Method Current WG Current Estimate 12/19/22 LMP (Certain) 35w 0d # 2 PFSH PFSH Medical History Asthma PCOS (polycystic ovarian syndrome) Rheumatoid arthritis Home Medications lancets #100 ea 07/01/22 [Rx Last Taken Unknown] lancets 33 gauge (BD Ultra Fine Lancets) #100 ea 07/01/22 [Rx Last Taken Unknown] blood sugar diagnostic (Blood Glucose Test strips) #150 ea 07/23/22 [Rx Last Taken Unknown] blood-glucose meter #150 ea 07/23/22 [Rx Last Taken Unknown] PNV-iron 29 mg-folic acid 1 mg-omega3 250 mg-dha 200mg oral combo pack (Complete Radha DHA) 1 pkg PO DAILY SUPPLEMENT 09/17/22 [History Last Taken 11/13/22 07:00] aspirin 81 mg tablet,delayed release 81 mg PO DAILY heart health 09/17/22 [History Last Taken 11/13/22 07:00] ferrous sulfate 325 mg (65 mg iron) tablet (iron) 325 mg PO DAILY SUPPLEMENT 09/17/22 [History Last Taken 11/13/22 07:00] folic acid 400 mcg tablet 0.4 mg PO DAILY SUPPLEMENT 09/17/22 [History Last Taken 11/13/22 07:00] metformin 500 mg tablet 500 mg PO TID PCOS 09/17/22 [History Last Taken 11/13/22 12:00] lauren.stocking,knee,reg,smal (T.E.D. Anti-Embolism Stocking) #3 ea 10/09/22 [Rx Last Taken Unknown] Allergy/AdvReac Type Severity Reaction Status Date / Time codeine AdvReac Other Verified 11/13/22 17:24 Family History Grandfather Diabetes Mother Hypertension Hyperlipidemia Metabolic syndrome Surgical History delivery delivered H/O knee surgery History of tonsillectomy Hx of cholecystectomy Social History adopted: No household members: spouse and children housing: house number of children: 2 current occupational status: employed current occupation: [employer] current occupational exposures/hazards: No pets and animals: Yes pets and animals: dog(s) history of recent travel: No sexually active: Yes Smoking Status: Never smoker alcohol intake: never substance use type: does not use well-balanced diet: daily or most days caffeine: No eating out: rarely or never during the past year weight has: remained stable what type of physical activity do you participate in: none and walking frequency: 3-4 times per week duration: 15-30 minutes/day adri/yazidism: None seatbelt use: always do you feel safe at home: Yes additional social history: Patient works for [employer] Michelle History 3 Elective abortions Hx Para 2 Spontaneous abortions Hx # Term Pregnancies Ectopic pregnancies Hx # Pregnancies Multiple births # of living children 2 Past Pregnancies Del. Date Name GA/Weeks Outcome Route Bth Weight Gen Labor Lgth Anesthesia Del Locat Provider FOB Unknown 2015 Erendira 40 live - full term Moncho Villalba 05/09/20 36 live - [facility] bakari Briggs Delivery Date: 05/09/20 Last Updated by: Delicia Crum, DO severe pre-e, breech Visit Details Expected Delivery Route/Plan RLTCS Plans Covid status: discussed Flu vaccine: discussed Tdap vaccine:discussed Rhogam: na LARC form signed: completed. Problem list reviewed and updated with the most current plan of care details and appropriate orders placed. Relevant counseling for the gestational age provided. Continue routine care and follow up unless otherwise noted in visit notes/problem list details OB Flowsheet Initial Weight: Not Recorded Date -?-?-?-?-?-?-?-?-?-?-?-?- EGA Weight BP Urine Prot -?-?-?-?-?-?-?-?-?-?-?-?- Glucose FHR FuHt Pres Dilation -?-?-?-?-?-?-?-?-?-?-?-?- Effaced St Visit Note 05/11/22 -?-?-?-?-?-?-?-?-?-?-?-?- 8w 2d 290 lb 120/80 -?-?-?-?-?-?-?-?-?-?-?-?- A 165 -?-?-?-?-?-?-?-?-?-?-?-?- B 155 A -?-?-?-?-?-?-?-?-?-?-?-?- B -?-?-?-?-?-?-?-?-?-?-?-?- A -?-?-?-?-?-?-?-?-?-?-?-?- B A SM- CRL x 2 cons with each other viable -?-?-?-?-?-?-?-?-?-?-?-?- B 06/05/22 -?-?-?-?-?-?-?-?-?-?-?-?- 11w 6d 289 lb 123/78 Negative -?-?-?-?-?-?-?-?-?-?-?-?- Negative A 160 -?-?-?-?-?-?-?-?-?-?-?-?- B 160 A -?-?-?-?-?-?-?-?-?-?-?-?- B -?-?-?-?-?-?--?-?-?-?-?-?- A -?-?-?-?-?-?-?-?-?-?-?-?- B A SM- hematoma res olved no vb cramping -?-?-?-?-?-?-?-?-?-?-?-?- B 07/01/22 -?-?-?-?-?-?-?-?-?-?-?-?- 15w 4d 292 lb 8 oz 125/80 Nega tive -?-?-?-?-?-?-?-?-?-?-?-?- Negative A 153 -?-?-?-?-?-?-?-?-?-?-?-?- B 144 A -?-?-?-?-?-?-?-?-?-?-?-?- B -?-?-?-?-?-?-?-?-?-?-?-?- A -?-?-?-?-?-?-?-?-?-?-?-?- B A JV- discussed yair cardenas has type 2 dm. pt very tearfu but reassured and willing to participate. She wants to go back on the metformin now. -?-?-?-?-?-?-?-?-?-?-?-?- B 07/28/22 -?-?-?-?-?-?-?-?-?-?-?-?- 19w 3d 282 lb 4 oz 128/79 Nega tive -?-?-?-?-?-?-?-?-?-?-?-?- Negative A 157 -?-?-?-?-?-?-?-?-?-?-?-?- B 147 A -?-?-?-?-?-?-?-?-?-?-?-?- B -?-?-?-?-?-?-?-?-?-?-?-?- A -?-?-?-?-?-?-?-?-?-?-?-?- B A JV- anatomy ultr asound reviewed. Pt will return in 2 weeks for repeat views. Plan for twice weekly testing at 32 weeks. growths q 4 weeks -?-?-?-?-?-?-?-?-?-?-?-?- B 08/27/22 -?-?-?-?-?-?-?-?-?-?-?-?- 23w 5d 292 lb 6 oz 119/80 Nega tive -?-?-?-?-?-?-?-?-?-?-?-?- Negative A 135 -?-?-?-?-?-?-?-?-?-?-?-?- B 147 A Transverse -?-?-?-?-?-?-?-?-?-?-?-?- B Transverse -?-?-?-?-?-?-?-?-?-?-?-?- A -?-?-?-?-?-?-?-?-?-?-?-?- B A JV- no lof, vagi nal bleeding, or dec fm. glucose levels are stable. has growth scan with MFM on 09/17. -?-?-?-?-?-?-?-?-?-?-?-?- B 09/23/22 -?-?-?-?-?-?-?-?-?-?-?-?- 27w 4d 289 lb 6 oz 120/66 Nega tive -?-?-?-?-?-?-?-?-?-?-?-?- Negative A 144 -?-?-?-?-?-?-?-?-?-?-?-?- B 156 A -?-?-?-?-?-?-?-?-?-?-?-?- B -?-?-?-?-?-?-?-?-?-?-?-?- A -?-?-?-?-?-?-?-?-?-?-?-?- B A LC- no lof/vb/ct x. good movement. has growth scan with mfm LC- no lof/vb/ctx. good feta l movement. has growth scan with mfm. recovering from pneumonia. -?-?-?-?-?-?-?-?-?-?-?-?- B 10/09/22 -?-?-?-?-?-?-?-?-?-?-?-?- 29w 6d 293 lb 140/84 129/84 -?-?-?-?-?-?-?-?-?-?-?-?- A 150 -?-?-?-?-?-?-?-?-?-?-?-?- B 160 A Cephalic -?-?-?-?-?-?-?-?-?-?-?-?- B Transverse -?-?-?-?-?-?-?-?-?-?-?-?- A -?-?-?-?-?-?-?-?-?-?-?-?- B A JV- mild elevati on in bp, asymptomatic and no proteinuria -?-?-?-?-?-?-?-?-?-?-?-?- B 10/22/22 -?-?-?-?-?-?-?-?-?-?-?-?- 31w 5d 296 lb 114/73 Negative -?-?-?-?-?-?-?-?-?-?-?-?- Negative A 140 -?-?-?-?-?-?-?-?-?-?-?-?- B 150 A Cephalic -?-?-?-?-?-?-?-?-?-?-?-?- B Breech -?-?-?-?-?-?-?-?-?-?-?-?- A -?-?-?-?-?-?-?-?-?-?-?-?- B A SM- no vb lof go od fm no regular ctx co lower swelling and intermittent VELIZ -?-?-?-?-?-?-?-?-?-?-?-?- B 10/30/22 -?-?-?-?-?-?-?-?-?-?-?-?- 32w 6d 299 lb 2 oz 135/87 Nega tive -?-?-?-?-?-?-?-?-?-?-?-?- Negative A 145 -?-?-?-?-?-?-?-?-?-?-?-?- B 155 A -?-?-?-?-?-?-?-?-?-?-?-?- B 0 -?-?-?-?-?-?-?-?-?-?-?-?- A -?-?-?-?-?-?-?-?-?-?-?-?- B A SM- patient seen for pelvic pressure- no ctx and no dilation, appears to be pelvic pain and pressure from the twin , reassurance given -?-?-?-?-?-?-?-?-?-?-?-?- B 11/04/22 -?-?-?-?-?-?-?-?-?-?-?-?- 33w 4d 304 lb 2 oz 132/81 Nega tive -?-?-?-?-?-?-?-?-?-?-?-?- Negative A 163 -?-?-?-?-?-?-?-?-?-?-?-?- B 155 A -?-?-?-?-?-?-?-?-?-?-?-?- B -?-?-?-?-?-?-?-?-?-?-?-?- A -?-?-?-?-?-?-?-?-?-?-?-?- B A LC- no pelvic pr essure. growth adequate. starting 2x weekly NST with L&D. BPP on friday 05/04 for both fetuses. LC- no pelvic pressure. grow th adequate. starting 2x weekly NST with L&D. BPP on friday 05/04 for both fetuses. glucose has been stable. -?-?-?-?-?-?-?-?-?-?-?-?- B 11/11/22 -?-?-?-?-?-?-?-?-?-?-?-?- 34w 4d 306 lb 6 oz 134/84 Nega tive -?-?-?-?-?-?-?-?-?-?-?-?- Negative A 150 -?-?-?-?-?-?-?-?-?-?-?-?- B 140 A Cephalic -?-?-?-?-?-?-?-?-?-?-?-?- B Breech 0 -?-?-?-?-?-?-?-?-?-?-?-?- A -?-?-?-?-?-?-?-?-?-?-?-?- B A JV- pt is tearfu l and states that she has headaches and some blurry/dry vision at night. rpt bp is 116/78 after she calms down. no proteinuria. -?-?-?-?-?-?-?-?-?-?-?-?- B ROS Constitutional Constitutional: Reports systems reviewed and no addt'l complaints, except as documented Gastrointestinal Gastrointestinal: Denies bloating, constipation, cramping, diarrhea, nausea or vomiting Genitourinary Genitourinary: Reports other Details: Denies vaginal odor, vaginal bleeding, or vaginal discharge ; Denies difficulty urinating or flank pain NST FHR Rate Baby A Baseline: 150 Variability:: Moderate Accelerations:: 15 x 15 Decelerations:: None NST Reactive:: Yes FHR Category:: Category I FHR Rate Baby B Baseline: 130 Variability:: Moderate Accelerations:: 15 x 15 Decelerations:: None NST Reactive:: Yes FHR Category:: Category I Assessment & Plan (1) Headache in , antepartum: (2) : QUALIFIERS: Weeks of gestation: 34 weeks Qualified Code(s): Z3A.34 - 34 weeks gestation of COMMENT: serial growths every 4 wks, anatomy reviewed. discussed NIPT & Carrier testing (3) Supervision of high risk , antepartum: COMMENT: PRR , DION 12/19/22,[facility] Erendira, William Michelle (4) Hx of pre-eclampsia in prior , currently : COMMENT: baby asa, baseline labs ordered (5) Previous section: COMMENT: plan RLTCS. 2 previous , 1 due to breech, 1 due to decels. RLTCS scheduled 12/07/22 @ 7:10 with (6) Obesity affecting : COMMENT: 1 TM GCT encourage healthy weight gain (7) Dichorionic diamniotic twin gestation: COMMENT: seen in 1 TM. clomid . echo @ 22 wks, antenal testing 2x wkly and daily kick counts starting at 32 wks. 38 week delivery, NST in L&D and Fridays @ 10 (8) Type 2 diabetes mellitus affecting in second trimester, antepartum: COMMENT: followed by Dr. Werner metformin 500mg TID PLAN: Plan pih labs and bp is normal. discharging patient to home in stable condition Charges/Coding Multi Select Codes Urinary/Genital Urinary/Genital CPT Codes: 38050-06 non-stress test Interp
--- NOTE | 2022-11-13 20:49 | OB.TRI.NOTE ---
HPI - General HPI Narrative MICHELLE MURGUIA, is a 32y/o @ 34 weeks 6 days di/di twins, who presents to L&D to rule out pre-eclampsia. She reports headache and swelling in ankles at home. She was here earlier today for a scheduled NST and both babies were reactive Maternal Data Information DION Calculator Estimated Delivery Date Method Current WG Current Estimate 12/19/22 LMP (Certain) 35w 0d # 2 PFSH PFSH Medical History Asthma PCOS (polycystic ovarian syndrome) Rheumatoid arthritis Home Medications lancets #100 ea 07/01/22 [Rx Last Taken Unknown] lancets 33 gauge (BD Ultra Fine Lancets) #100 ea 07/01/22 [Rx Last Taken Unknown] blood sugar diagnostic (Blood Glucose Test strips) #150 ea 07/23/22 [Rx Last Taken Unknown] blood-glucose meter #150 ea 07/23/22 [Rx Last Taken Unknown] PNV-iron 29 mg-folic acid 1 mg-omega3 250 mg-dha 200mg oral combo pack (Complete Radha DHA) 1 pkg PO DAILY SUPPLEMENT 09/17/22 [History Last Taken 11/13/22 07:00] aspirin 81 mg tablet,delayed release 81 mg PO DAILY heart health 09/17/22 [History Last Taken 11/13/22 07:00] ferrous sulfate 325 mg (65 mg iron) tablet (iron) 325 mg PO DAILY SUPPLEMENT 09/17/22 [History Last Taken 11/13/22 07:00] folic acid 400 mcg tablet 0.4 mg PO DAILY SUPPLEMENT 09/17/22 [History Last Taken 11/13/22 07:00] metformin 500 mg tablet 500 mg PO TID PCOS 09/17/22 [History Last Taken 11/13/22 12:00] lauren.stocking,knee,reg,smal (T.E.D. Anti-Embolism Stocking) #3 ea 10/09/22 [Rx Last Taken Unknown] Allergy/AdvReac Type Severity Reaction Status Date / Time codeine AdvReac Other Verified 11/13/22 17:24 Family History Grandfather Diabetes Mother Hypertension Hyperlipidemia Metabolic syndrome Surgical History delivery delivered H/O knee surgery History of tonsillectomy Hx of cholecystectomy Social History adopted: No household members: spouse and children housing: house number of children: 2 current occupational status: employed current occupation: [employer] current occupational exposures/hazards: No pets and animals: Yes pets and animals: dog(s) history of recent travel: No sexually active: Yes Smoking Status: Never smoker alcohol intake: never substance use type: does not use well-balanced diet: daily or most days caffeine: No eating out: rarely or never during the past year weight has: remained stable what type of physical activity do you participate in: none and walking frequency: 3-4 times per week duration: 15-30 minutes/day adri/church: None seatbelt use: always do you feel safe at home: Yes additional social history: Patient works for [employer] History 3 Elective abortions Hx Para 2 Spontaneous abortions Hx # Term Pregnancies Ectopic pregnancies Hx # Pregnancies Multiple births # of living children 2 Past Pregnancies Del. Date Name GA/Weeks Outcome Route Bth Weight Gen Labor Lgth Anesthesia Del Locatn Provider FOB Unknown 2015 Erendira 40 live - full term Moncho Villalba 05/09/20 36 live - [facility] bakari Briggs Delivery Date: 05/09/20 Last Updated by: Delicia Crum, DO severe pre-e, breech Visit Details Expected Delivery Route/Plan RLTCS Plans Covid status: discussed Flu vaccine: discussed Tdap vaccine:discussed Rhogam: na LARC form signed: completed. Problem list reviewed and updated with the most current plan of care details and appropriate orders placed. Relevant counseling for the gestational age provided. Continue routine care and follow up unless otherwise noted in visit notes/problem list details OB Flowsheet Initial Weight: Not Recorded Date <del>?</del> EGA Weight BP Urine Prot <del>?</del> Glucose FHR FuHt Pres Dilation <del>?</del> Effaced St Visit Note 08/15/22 <del>?</del> 8w 2d 290 lb 120/80 <del>?</del> A 165 <del>?</del> B 155 A <del>?</del> B <del>?</del> A <del>?</del> B A SM- CRL x 2 cons with each other viable <del>?</del> B 06/05/22 <del>?</del> 11w 6d 289 lb 123/78 Negative <del>?</del> Negative A 160 <del>?</del> B 160 A <del>?</del> B <del>?</del> A <del>?</del> B A SM- hematoma resolved no vb cramping <del>?</del> B 07/01/22 <del>?</del> 15w 4d 292 lb 8 oz 125/80 Negative <del>?</del> Negative A 153 <del>?</del> B 144 A <del>?</del> B <del>?</del> A <del>?</del> B A JV- discussed likely has type 2 dm. pt very tearfu but reassured and willing to participate. She wants to go back on the metformin now. <del>?</del> B 07/28/22 <del>?</del> 19w 3d 282 lb 4 oz 128/79 Negative <del>?</del> Negative A 157 <del>?</del> B 147 A <del>?</del> B <del>?</del> A <del>?</del> B A JV- anatomy ultrasound reviewed. Pt will return in 2 weeks for repeat views. Plan for twice weekly testing at 32 weeks. growths q 4 weeks <del>?</del> B 08/27/22 <del>?</del> 23w 5d 292 lb 6 oz 119/80 Negative <del>?</del> Negative A 135 <del>?</del> B 147 A Transverse <del>?</del> B Transverse <del>?</del> A <del>?</del> B A JV- no lof, vaginal bleeding, or dec fm. glucose levels are stable. has growth scan with MFM on 09/17. <del>?</del> B 09/23/22 <del>?</del> 27w 4d 289 lb 6 oz 120/66 Negative <del>?</del> Negative A 144 <del>?</del> B 156 A <del>?</del> B <del>?</del> A <del>?</del> B A LC- no lof/vb/ctx. good movement. has growth scan with mfm LC- no lof/vb/ctx. good movement. has growth scan with mfm. recovering from pneumonia. <del>?</del> B 10/09/22 <del>?</del> 29w 6d 293 lb 140/84 129/84 <del>?</del> A 150 <del>?</del> B 160 A Cephalic <del>?</del> B Transverse <del>?</del> A <del>?</del> B A JV- mild elevation in bp, asymptomatic and no proteinuria <del>?</del> B 10/22/22 <del>?</del> 31w 5d 296 lb 114/73 Negative <del>?</del> Negative A 140 <del>?</del> B 150 A Cephalic <del>?</del> B Breech <del>?</del> A <del>?</del> B A SM- no vb lof good fm no regular ctx co lower swelling and intermittent VELIZ <del>?</del> B 10/30/22 <del>?</del> 32w 6d 299 lb 2 oz 135/87 Negative <del>?</del> Negative A 145 <del>?</del> B 155 A <del>?</del> B 0 <del>?</del> A <del>?</del> B A SM- patient seen for pelvic pressure- no ctx and no dilation, appears to be pelvic pain and pressure from the twin , reassurance given <del>?</del> B 11/04/22 <del>?</del> 33w 4d 304 lb 2 oz 132/81 Negative <del>?</del> Negative A 163 <del>?</del> B 155 A <del>?</del> B <del>?</del> A <del>?</del> B A LC- no pelvic pressure. growth adequate. starting 2x weekly NST with L&D. BPP on friday 05/04 for both fetuses. LC- no pelvic pressure. growth adequate. starting 2x weekly NST with L&D. BPP on friday 05/04 for both fetuses. glucose has been stable. <del>?</del> B 11/11/22 <del>?</del> 34w 4d 306 lb 6 oz 134/84 Negative <del>?</del> Negative A 150 <del>?</del> B 140 A Cephalic <del>?</del> B Breech 0 <del>?</del> A <del>?</del> B A JV- pt is tearful and states that she has headaches and some blurry/dry vision at night. rpt bp is 116/78 after she calms down. no proteinuria. <del>?</del> B ROS Constitutional Constitutional: Reports systems reviewed and no addt'l complaints, except as documented Gastrointestinal Gastrointestinal: Denies bloating, constipation, cramping, diarrhea, nausea or vomiting Genitourinary Genitourinary: Reports other Details: Denies vaginal odor, vaginal bleeding, or vaginal discharge ; Denies difficulty urinating or flank pain NST FHR Rate Baby A Baseline: 150 Variability:: Moderate Accelerations:: 15 x 15 Decelerations:: None NST Reactive:: Yes FHR Category:: Category I FHR Rate Baby B Baseline: 130 Variability:: Moderate Accelerations:: 15 x 15 Decelerations:: None NST Reactive:: Yes FHR Category:: Category I Assessment & Plan (1) Headache in , antepartum: (2) : QUALIFIERS: Weeks of gestation: 34 weeks Qualified Code(s): Z3A.34 - 34 weeks gestation of COMMENT: serial growths every 4 wks, anatomy reviewed. discussed NIPT & Carrier testing (3) Supervision of high risk , antepartum: COMMENT: PRR , DION 12/19/22,[facility] Krishna Michelle (4) Hx of pre-eclampsia in prior , currently : COMMENT: baby asa, baseline labs ordered (5) Previous section: COMMENT: plan RLTCS. 2 previous , 1 due to breech, 1 due to decels. RLTCS scheduled 12/07/22 @ 7:10 with (6) Obesity affecting : COMMENT: 1 TM GCT encourage healthy weight gain (7) Dichorionic diamniotic twin gestation: COMMENT: seen in 1 TM. clomid . echo @ 22 wks, antenal testing 2x wkly and daily kick counts starting at 32 wks. 38 week delivery, NST in L&D and Fridays @ 10 (8) Type 2 diabetes mellitus affecting in second trimester, antepartum: COMMENT: followed by Dr. Werner metformin 500mg TID PLAN: Plan pih labs and bp is normal. discharging patient to home in stable condition Charges/Coding Multi Select Codes Urinary/Genital Urinary/Genital CPT Codes: 78785-54 non-stress test Interp
== END 2022-11-13 18:47 | disposition home or self-care (01) ==
LOC: WPOUT 09:53 → WP 09:53 → WPOUT 17:15 → WP 17:47
PROVIDERS: PCP Internal Medicine; Referring Provider Obstetrics & Gynecology; Visit Provider Obstetrics & Gynecology
DX: O99.891 Other specified diseases and conditions complicating pregnancy (principal); R51.9 Headache, unspecified; Z3A.34 34 weeks gestation of pregnancy; O09.893 Supervision of other high risk pregnancies, third trimester; O99.213 Obesity complicating pregnancy, third trimester; O24.913 Unspecified diabetes mellitus in pregnancy, third trimester; O30.043 Twin pregnancy, dichorionic/diamniotic, third trimester
CPT/HCPCS: 59025; 59050; 82565; 82570; 84156; 84450; 84460; 84550; 85027; 99221; G0378

== ENCOUNTER 2023-01-20 09:42 | Emergency (ER) | payer MEDICAID, SELFPAY ==
[2023-01-20 09:42] VITALS: BP 134/78; PULSE 78; RESP 16; TEMP 36.6; O2SAT 98; BMI 48.9
--- NOTE | 2023-01-20 10:09 | EDS_ITS ---
HPI History of Present Illness HPI Narrative: Patient presents with laceration to her right ring finger that occurred today. Patient states she was slicing devante when she excellently cut her finger on the slicer. Patient states her last tetanus was approximately 2 months ago. Patient denies any paresthesias or weakness. Patient describes her pain as burning. Patient states nothing makes it worse and nothing makes it better. Patient states the bleeding stopped several minutes of pressure. Patient denies any other injuries. Chief Complaint: Laceration Informant: patient Occured/Mechanism Comment: Cut finger on slicer Onset/Context/Timing Onset: Today Context: Sudden Onset Timing: Continuous Quality of Pain: Burning Location: Right ring finger Worsened by: Nothing Relieved by: Nothing Associated Symptoms Associated Symptoms: Negative for Parasthesia, Weakness or Loss of Funtion Narrative Tetanus Immunization: <5 years [facility] Medical History Asthma PCOS (polycystic ovarian syndrome) Rheumatoid arthritis Medical History no medical history Home Medications lancets #100 ea 07/01/22 [Rx Last Taken Unknown] lancets 33 gauge (BD Ultra Fine Lancets) #100 ea 07/01/22 [Rx Last Taken Unknown] blood sugar diagnostic (Blood Glucose Test strips) #150 ea 07/23/22 [Rx Last Taken Unknown] blood-glucose meter #150 ea 07/23/22 [Rx Last Taken Unknown] PNV-iron 29 mg-folic acid 1 mg-omega3 250 mg-dha 200mg oral combo pack (Complete Radha DHA) 1 pkg PO DAILY SUPPLEMENT 09/17/22 [History Last Taken 11/13/22 07:00] aspirin 81 mg tablet,delayed release 81 mg PO DAILY heart health 09/17/22 [History Last Taken 11/13/22 07:00] ferrous sulfate 325 mg (65 mg iron) tablet (iron) 325 mg PO DAILY SUPPLEMENT 09/17/22 [History Last Taken 11/13/22 07:00] folic acid 400 mcg tablet 0.4 mg PO DAILY SUPPLEMENT 09/17/22 [History Last Taken 11/13/22 07:00] metformin 500 mg tablet 500 mg PO TID PCOS 09/17/22 [History Last Taken 11/13/22 12:00] lauren.stocking,knee,reg,smal (T.E.D. Anti-Embolism Stocking) #3 ea 10/09/22 [Rx Last Taken Unknown] Allergy/AdvReac Type Severity Reaction Status Date / Time codeine AdvReac Other Verified 01/20/23 09:42 Family History Grandfather Diabetes Mother Hypertension Hyperlipidemia Metabolic syndrome Surgical History delivery delivered H/O knee surgery History of tonsillectomy Hx of cholecystectomy Social History adopted: No household members: spouse and children housing: house number of children: 2 current occupational status: employed current occupation: [employer] current occupational exposures/hazards: No pets and animals: Yes pets and animals: dog(s) history of recent travel: No sexually active: Yes Smoking Status: Never smoker alcohol intake: never substance use type: does not use well-balanced diet: daily or most days caffeine: No eating out: rarely or never during the past year weight has: remained stable what type of physical activity do you participate in: none and walking frequency: 3-4 times per week duration: 15-30 minutes/day adri/uatsdin: None seatbelt use: always do you feel safe at home: Yes additional social history: Patient works for [employer] ED Constitutional Constitutional ED: Denies chills or fever(s) Eyes Eyes: Denies blurry vision or change in vision ENT ENT ED: Denies rhinorrhea or sore throat Cardiovascular Cardiovascular: Denies chest pain or palpitations Respiratory/Chest Respiratory/Chest: Denies cough or dyspnea Gastrointestinal Gastrointestinal: Denies nausea or vomiting Genitourinary Genitourinary ED: Denies dysuria or hematuria Musculoskeletal Musculoskeletal: Denies back pain or neck pain Integumentary Denies abscess or rash Neurologic Neurologic: Denies headache(s) or weakness Allergic/Immunologic Allergic/Immunologic ED: Denies mouth swelling or urticaria EXAM Physical Exam Const Vital Signs: 01/20/23 09:42 Temperature 97.8 F Temperature Source Temporal Pulse Rate 78 Respiratory Rate 16 Blood Pressure 134/78 H Blood Pressure Mean 96 Pulse Ox 98 Oxygen Delivery Method Room Air Positive well nourished and well developed General Appearance ED: well developed and NAD HEENT Reports moist mucous membranes Neck full ROM and supple Extremity normal to inspection and full ROM Neuro oriented x3, CN's II-XII intact bilaterally, moves all extremities, no focal motor deficits and no sensory deficits noted Sensorium / Orientation: alert Motor Exam: strength 5/5 throughout Skin Skin Narrative: There is a 1 cm diameter avulsion laceration over the tip of the distal phalanx of the right ring finger. There is no active bleeding noted. There are no foreign bodies noted. Capillary refill was less than 2 seconds in all digits. Sensation was intact to light touch in all digits. There is full range of motion. Strength is 5/5 in flexion extension of the MP, PIP, and DIP joints of the right ring finger. MDM MDM MDM Narrative Medical decision making narrative: Patient's tetanus is up-to-date. Patient was advised that there is nothing requiring suturing at this time. The wound was cleaned and dressed with bacitracin and Gelfoam dressings. Patient was instructed to keep the wound clean and dry. Patient was instructed to follow-up with her primary care physician in 5 to 7 days. Patient understood and was agreeable with the plan. All questions were answered. Discharge Plan Triage Chief Complaint: Laceration ED Provider: Edson Chirinos Dx/Rx/DC Orders Clinical Impression: Laceration of right ring finger without foreign body without damage to nail, Morbid obesity with BMI of 45.0-49.9, adult Instructions: ED Laceration, Hand: All Closures Prescriptions: No Action (DME) lancets [BD Ultra Fine Lancets] 33 gauge misc See Rx Instructions .MEDSUPPLY Qty: 100 8RF Rx Instructions: As directed (DME) lancets Misc See Rx Instructions .MEDSUPPLY Qty: 100 8RF Rx Instructions: As directed (DME) T.E.D. Anti-Embolism Stocking Misc See Rx Instructions .Route Qty: 3 0RF Rx Instructions: 30mmg kneehigh compression folic acid 400 mcg Tablet 0.4 mg PO DAILY aspirin [Aspirin Low-Strength] 81 mg Tablet,Delayed Release (Dr/Ec) 81 mg PO DAILY ferrous sulfate [iron] 325 mg (65 mg iron) Tablet 325 mg PO DAILY metformin 500 mg tablet 500 mg PO TID Complete Radha DHA 21-9-847-200 mg combo pack 1 pkg PO DAILY (DME) blood-glucose meter Misc See Rx Instructions miscellaneous .MEDSUPPLY Qty: 150 6RF Rx Instructions: As directed Check BS fasting and 2 hours after meals(4x/day) (DME) Blood Glucose Test Strip See Rx Instructions .Route Qty: 150 6RF Rx Instructions: 4 times daily Primary Care Provider: Sonia Davila Referrals: Sonia Davila MD [Primary Care Provider] - 5-7 Days Disposition Disposition: Home, Self Care
[2023-01-20 10:55] VITALS: RESP 16
[2023-01-20] MEDS: Gelfoam 12-7 MM Sponge (1) 1 EACH TOPICAL (10:56)
== END 2023-01-20 10:57 | disposition home or self-care (01) ==
PROVIDERS: Emergency Provider Emergency Medicine; PCP Internal Medicine; Visit Provider Emergency Medicine
DX: S61.214A Laceration without foreign body of right ring finger without damage to nail, initial encounter (principal); E66.01 Morbid (severe) obesity due to excess calories; Z68.42 Body mass index [BMI] 45.0-49.9, adult; W27.4XXA Contact with kitchen utensil, initial encounter; Z79.82 Long term (current) use of aspirin
CPT/HCPCS: 99282

== ENCOUNTER 2023-01-22 11:18 | Emergency (ER) | payer MEDICAID, SELFPAY ==
[2023-01-22 11:19] VITALS: BP 146/89; PULSE 114; RESP 18; TEMP 36.5; O2SAT 97; BMI 48.5
[2023-01-22 12:19] VITALS: BP 153/84; PULSE 107; RESP 16; O2SAT 97
--- NOTE | 2023-01-22 13:20 | EKG12_ITS ---
Test Reason : SOB/CP Blood Pressure : / mmHG Vent. Rate : 107 BPM Atrial Rate : 107 BPM P-R Int : 162 ms QRS Dur : 096 ms QT Int : 340 ms P-R-T Axes : 050 -06 -01 degrees QTc Int : 453 ms Sinus tachycardia Minimal voltage criteria for LVH, may be normal variant ( R in aVL ) Borderline ECG Confirmed by NIR ARREDONDO, EAMON ([id number]), medical transcription editor LISSETT CARLOS ([id number]) on 01/25/2023 11:28:50 AM Referred By: FITZ Confirmed By:FLAVIO LOYOLA MD
--- NOTE | 2023-01-22 13:20 | RAD_ITS ---
STUDY: X-RAY CHEST REASON FOR EXAM: Female, 32 years old. Chest pain TECHNIQUE: PA and lateral views of the chest. COMPARISON: Comparison is made with prior study dated September 17, 2022. FINDINGS: EKG electrodes are seen. There is evidence of a pulmonary infiltrate in the posterior medial segment of the right lower lobe. There is no demonstrated pleural abnormality. Normal size heart. Normal mediastinum and esha. Normal visualized pulmonary arteries. Normal visualized aortic arch and descending thoracic aorta. Normal visualized thoracic spine. Normal visualized ribs, clavicles, and shoulders. There is no demonstrated abnormality of the visualized soft tissue structures of the upper abdomen. RAD/Chest PA and Lateral IMPRESSION: Focal infiltrate in the posterior medial segment of the right lower lobe. Electronically Signed: Isai Adhikari MD at 14:18 EDT ,
--- NOTE | 2023-01-22 13:43 | ED.VIS.DYS ---
HPI History of Present Illness Chief Complaint: Shortness of Breath Detail of Chief Complaint: Shortness of breath, chest discomfort described as pressure Informant: patient Onset/Context/Timing Onset: Today (Today's symptoms were worse and prompted her to come in.) and Days Context: sudden and - (There is no correlation to position, activity or food with regards to her chest pain) Timing: Intermittent Quality: Negative for Dyspnea on exertion, Orthopnea, PND or Wheezing Current Severity: Mild Maximum Severity: Moderate Worsened by: Nothing Relieved by: Nothing Associated Symptoms Negative for cough, rhinorrhea, post nasal drip, ear pain, fever, sore throat, subjective, chills, sweats, clear sputum, white sputum, yellow sputum or green sputum Chest Pain: Positive for Intermittent and Pressure (Midsternal) Narrative Narrative: Patient is a 32-year-old morbidly obese woman with history of type 2 diabetes, pneumonia affecting and 2 months ago who presents with chest pressure and shortness of breath. She denies history of cardiac disease. She denies history of VTE or PE. She denies leg pain, swelling discoloration. She denies nausea or vomiting. She denies black or maroon-colored stool. The chest discomfort does not radiate to her neck, jaw or back. Patient has not taken anything specifically for the discomfort. She denies fever, chills night sweats. Denies weight gain or weight loss. She denies headache, visual, ocular auditory symptoms. She denies abdominal pain, intolerance to greasy or fried foods, vomiting or diarrhea. She denies black or maroon-colored stool. She denies urologic symptoms. PE Risk Factors: Negative for Cancer, OCP + Smoking + > 35, Prior DVT or PE, Recent immobilization, Recent surgery or Recent travel Prior similar symptoms: No Recent Illness/Hospitalization: No PFSH PFSH Medical History Asthma PCOS (polycystic ovarian syndrome) Rheumatoid arthritis Home Medications lancets #100 ea 07/01/22 [Rx Last Taken Unknown] lancets 33 gauge (BD Ultra Fine Lancets) #100 ea 07/01/22 [Rx Last Taken Unknown] blood sugar diagnostic (Blood Glucose Test strips) #150 ea 07/23/22 [Rx Last Taken Unknown] blood-glucose meter #150 ea 07/23/22 [Rx Last Taken Unknown] PNV-iron 29 mg-folic acid 1 mg-omega3 250 mg-dha 200mg oral combo pack (Complete DHA) 1 pkg PO DAILY SUPPLEMENT 09/17/22 [History Last Taken 11/13/22 07:00] aspirin 81 mg tablet,delayed release 81 mg PO DAILY heart health 09/17/22 [History Last Taken 11/13/22 07:00] ferrous sulfate 325 mg (65 mg iron) tablet (iron) 325 mg PO DAILY SUPPLEMENT 09/17/22 [History Last Taken 11/13/22 07:00] folic acid 400 mcg tablet 0.4 mg PO DAILY SUPPLEMENT 09/17/22 [History Last Taken 11/13/22 07:00] metformin 500 mg tablet 500 mg PO TID PCOS 09/17/22 [History Last Taken 11/13/22 12:00] lauren.stocking,knee,reg,smal (T.E.D. Anti-Embolism Stocking) #3 ea 10/09/22 [Rx Last Taken Unknown] Allergy/AdvReac Type Severity Reaction Status Date / Time codeine AdvReac Other Verified 01/22/23 11:21 Family History Grandfather Diabetes Mother Hypertension Hyperlipidemia Metabolic syndrome Surgical History delivery delivered H/O knee surgery History of tonsillectomy Hx of cholecystectomy Social History adopted: No household members: spouse and children housing: house number of children: 2 current occupational status: employed current occupation: [employer] current occupational exposures/hazards: No pets and animals: Yes pets and animals: dog(s) history of recent travel: No sexually active: Yes Smoking Status: Never smoker alcohol intake: never substance use type: does not use well-balanced diet: daily or most days caffeine: No eating out: rarely or never during the past year weight has: remained stable what type of physical activity do you participate in: none and walking frequency: 3-4 times per week duration: 15-30 minutes/day adri/gnosticist: None seatbelt use: always do you feel safe at home: Yes additional social history: Patient works for [employer] ED Constitutional Constitutional ED: Denies chills, fever(s), sweats or weight loss Eyes Eyes: Denies blurry vision, change in vision or diplopia ENT ENT ED: Denies ear pain, rhinorrhea or sore throat Cardiovascular Cardiovascular: Reports chest pain; Denies orthopnea, palpitations, paroxysmal nocturnal dyspnea or racing heartbeat Respiratory/Chest Respiratory/Chest: Reports dyspnea; Denies cough, dyspnea on exertion, orthopnea or paroxysmal nocturnal dyspnea Gastrointestinal Gastrointestinal: Denies abdominal pain, constipation, diarrhea, nausea or vomiting Genitourinary Genitourinary ED: Denies dysuria, hematuria or urinary frequency Musculoskeletal Musculoskeletal: Denies arthralgias, back pain, myalgias or neck pain Integumentary Denies abscess or rash Neurologic Neurologic: Denies headache(s), paresthesias or weakness Psychiatric Psychiatric: Denies anxiety or depression Endocrine Endocrinology: Denies cold intolerance or heat intolerance Hematologic/Lymphatic Hematologic/Lymphatic: Denies easy bleeding or easy bruising EXAM Physical Exam Const Vital Signs: 01/22/23 11:19 01/22/23 12:19 01/22/23 12:19 Temperature 97.7 F L Temperature Source Temporal Pulse Rate 114 H 107 H Respiratory Rate 18 16 Respiratory Effort Normal Non-Labored Respiratory Pattern Normal Blood Pressure 146/89 H 153/84 H Blood Pressure Mean 108 107 Pulse Ox 97 97 Oxygen Delivery Method Room Air Room Air 01/22/23 14:00 Temperature Temperature Source Pulse Rate 101 H Respiratory Rate 18 Respiratory Effort Respiratory Pattern Blood Pressure 137/87 H Blood Pressure Mean 103 Pulse Ox 99 Oxygen Delivery Method Room Air Positive well nourished, well developed and obese General Appearance ED: well developed; Negative for pallor Nutritional Appearance: obese HEENT Reports moist mucous membranes HEENT Narrative: Head is normocephalic. Ears are normal. Nares are patent. Posterior pharynx is normal. atraumatic Eyes PERRL and EOMs intact bilaterally General Eye ED: Negative for pale conjunctiva or scleral icterus Neck no lymphadenopathy, supple and no meningeal signs Resp normal respiratory effort and clear to auscultation bilaterally Cardio regular rhythm, S1 normal heart sound, S2 normal heart sound and no murmurs Rate: tachycardic GI non-tender, non-distended and no masses Auscultation: normoactive bowel sounds Palpation: soft Back/Spine no CVA tenderness Extremity normal to inspection Extremity Narrative: There is no asymmetry, swelling, discoloration, leg vein distention, palpable cords or tenderness along the distribution of the deep venous system. Neuro oriented x3, CN's II-XII intact bilaterally and no sensory deficits noted Ginger Coma Scale: document GCS findings Spontaneous Obeys Commands Oriented 15 Sensorium / Orientation: alert Skin no wounds and skin turgor normal General Skin Exam: Negative for jaundice or pallor MDM MDM MDM Narrative Medical decision making narrative: With atypical chest pain need to rule out cardiac versus noncardiac. Noncardiac would include GERD/hiatal hernia. Doubt biliary. Also need to evaluate for pneumonia since she states she had similar symptoms when she was diagnosed with pneumonia. Cannot exclude PE since patient is not PERC negative. Will obtain EKG, troponin, D-dimer, electrolyte panel and white count. History & Record Review Discussion w/independent historian: Patient Lab Data Attestation: I reviewed the patient's lab results. Lab results narrative: Patient's laboratory studies are unremarkable. D-dimer was canceled and will not be reordered since there is an explanation for her tachycardia and dyspnea. She has a on her x-ray Labs: Laboratory Results - last 24 hr 01/22/23 01/22/23 01/22/23 13:35 13:35 13:35 WBC 6.4 RBC 5.31 Hgb 14.4 Hct 43.6 MCV 82.1 MCH 27.1 MCHC 33.0 RDW Std Deviation 42.2 RDW Coeff of Delfino 14.1 Plt Count 226 MPV 9.8 Immature Gran % (Auto) 0.500 Neut % (Auto) 72.8 H Lymph % (Auto) 17.9 L [place] % (Auto) 7.5 Eos % (Auto) 0.8 Baso % (Auto) 0.5 Absolute Neuts (auto) 4.6 Absolute Lymphs (auto) 1.14 Nucleated RBC % 0 D-Dimer Quant (PE/DVT) Cancelled Sodium 135 L Potassium 3.6 Chloride 103 Carbon Dioxide 27.0 Anion Gap 5 BUN 11 Creatinine 0.60 Estim Creat Clear Calc 118.39 Est GFR (MDRD) Af Amer 151 Est GFR (MDRD) Non-Af 125 BUN/Creatinine Ratio 18.3 Glucose 78 Calcium 9.4 Troponin I High Sens < 3 L Radiography Chest X-Ray - ED: 2 View and Read by ED Physician (Patient has a infiltrate right lower lobe. There is no into pneumothorax or effusion. Cardiac silhouette size unremarkable. Perihilar regions unremarkable. Osseous structures are) Diagnostic Testing: Clinical Impression(s) from Imaging Studies Chest X-Ray 01/22/23 13:20 IMPRESSION: Focal infiltrate in the posterior medial segment of the right lower lobe. Electronically Signed: Isai Adhikari MD at 14:18 EDT , EKG Initial EKG: Attestation: I personally reviewed and interpreted this EKG as follows: Interpretation: Sinus Tachycardia (Rate is 107. DE interval is under 60 ms. Cures duration 96 ms. QT duration 340 ms. [place] is normal. There is LVH by voltage criteria.) Treatment and Re-Evaluation :: Patient was informed of results. Based on patient's port score and curb 5 score she is a candidate for outpatient therapy. Discharge Plan Triage Chief Complaint: Shortness of Breath ED Provider: Tyler Downey Dx/Rx/DC Orders Clinical Impression: Right lower lobe pneumonia, Type 2 diabetes mellitus affecting in second trimester, antepartum Instructions: ED Pneumonia (Adult) Prescriptions: No Action (DME) lancets [BD Ultra Fine Lancets] 33 gauge misc See Rx Instructions .MEDSUPPLY Qty: 100 8RF Rx Instructions: As directed (DME) lancets Misc See Rx Instructions .MEDSUPPLY Qty: 100 8RF Rx Instructions: As directed (DME) T.E.D. Anti-Embolism Stocking Misc See Rx Instructions .Route Qty: 3 0RF Rx Instructions: 30mmg kneehigh compression folic acid 400 mcg Tablet 0.4 mg PO DAILY aspirin [Aspirin Low-Strength] 81 mg Tablet,Delayed Release (Dr/Ec) 81 mg PO DAILY ferrous sulfate [iron] 325 mg (65 mg iron) Tablet 325 mg PO DAILY metformin 500 mg tablet 500 mg PO TID Complete DHA 19-7-887-200 mg combo pack 1 pkg PO DAILY (DME) blood-glucose meter Misc See Rx Instructions miscellaneous .MEDSUPPLY Qty: 150 6RF Rx Instructions: As directed Check BS fasting and 2 hours after meals(4x/day) (DME) Blood Glucose Test Strip See Rx Instructions .Route Qty: 150 6RF Rx Instructions: 4 times daily Primary Care Provider: Sonia Davila Referrals: Sonia Davila MD [Primary Care Provider] - 5-7 Days Activity Restrictions/Additional Instructions: 1. Take antibiotics until gone 2. If you have any difficulty breathing, become lightheaded, unable to walk any distance return to the emergency department immediately Disposition Disposition: Home, Self Care
[2023-01-22 13:46] LABS: Absolute Lymphocyte Count 1.14 X10^3/uL (0.83-4.51); Absolute Neutrophil Count 4.6 X10^3/uL (2.0-7.7); Basophil# 0.03 X10^3/uL; Basophil% 0.5 % (0-1); Eosinophil# 0.05 X10^3/uL; Eosinophils% 0.8 % (0-5); Hematocrit 43.6 % (37-47); Hemoglobin 14.4 g/dL (12.0-15.0); Lymphocyte # 1.14 X10^3/ul (0.83-4.51); Lymphocyte % 17.9 % (19-41); Mean Corpuscular Hgb 27.1 pg (27.0-32.0); Mean Corpuscular Volume 82.1 fL (81-99); Mean Platelet Vol. 9.8 fl (6.2-12.0); Monocyte# 0.48 X10^3/uL; Monocyte% 7.5 % (0-10); NRBC Flagged by Analyzer 0 % (0-5); Neutrophil # 4.64 X10^3/uL (2.7-7.7); Neutrophil % 72.8 % (47-70); Platelet Count 226 K/mm3 (150-450); RBC Distribution Width CV 14.1 % (11.6-14.6); RBC Distribution Width SD 42.2 fl (35.1-43.9); Red Blood Count 5.31 M/mm3 (4.2-5.4); White Blood Count 6.4 K/mm3 (4.4-11.0)
[2023-01-22 14:00] VITALS: BP 137/87; PULSE 101; RESP 18; O2SAT 99
[2023-01-22 14:04] LABS: Anion Gap 5 (5-15); BUN 11 mg/dL (7-18); BUN/Creat Ratio 18.3 RATIO (10-20); Calcium,Total 9.4 mg/dL (8.5-10.1); Chloride 103 mmol/L (98-107); EST Glomerular Filtration Rate 125 mL/min (>60); Est Glom Filt Rate - Afr Amer 151 mL/min (>60); Estimated Creatinine Clearance 118.39 ml/min; Glucose 78 mg/dL (74-106); Potassium 3.6 mmol/L (3.5-5.1); Sodium Level 135 mmol/L (136-145); Troponin-I HS < 3 pg/mL (3.0-54.0)
[2023-01-22] MEDS: levoFLOXacin 750 MG Tablet PO (15:16)
[2023-01-22 15:21] VITALS: BP 126/77; PULSE 62; RESP 15; O2SAT 98
== END 2023-01-22 15:22 | disposition home or self-care (01) ==
PROVIDERS: Emergency Provider Emergency Medicine; PCP Internal Medicine; Visit Provider Emergency Medicine
DX: J18.9 Pneumonia, unspecified organism (principal); E11.9 Type 2 diabetes mellitus without complications; Z79.82 Long term (current) use of aspirin; Z79.84 Long term (current) use of oral hypoglycemic drugs
CPT/HCPCS: 71046; 80048; 84484; 85025; 93005; 99284; A4216

== ENCOUNTER → 2023-06-15 | Outpatient (CLI) | payer MEDICAID, SELFPAY ==
--- NOTE | 2023-06-15 09:35 | RAD_ITS ---
STUDY: X-RAY CHEST REASON FOR EXAM: Female, 32 years old. Cough. History of prior pneumonia. TECHNIQUE: PA and lateral views of the chest. COMPARISON: Comparison is made with prior study dated January 22, 2023. FINDINGS: The lungs are clear and expanded. Scattered calcified granulomas. The previously seen right lower lobe pneumonia has resolved. There is no demonstrated pleural abnormality. Normal size heart. Normal mediastinum and esha. Normal visualized pulmonary arteries. Normal visualized aortic arch and descending thoracic aorta. Normal visualized thoracic spine. Normal visualized ribs, clavicles, and shoulders. There is no demonstrated abnormality of the visualized soft tissue structures of the upper abdomen. RAD/Chest PA and Lateral IMPRESSION: Normal x-ray examination of the chest. Electronically Signed: Isai Adhikari MD at 9:56 EDT ,
== END | disposition home or self-care (01) ==
LOC: MTRAD 09:34
PROVIDERS: PCP Internal Medicine; Referring Provider Physician Assistant; Visit Provider Physician Assistant
DX: R05.9 Cough, unspecified (principal)
CPT/HCPCS: 71046

== ENCOUNTER → 2023-07-26 | Outpatient (CLI) | payer MEDICAID, SELFPAY ==
--- NOTE | 2023-07-26 10:05 | RAD_ITS ---
STUDY: X-RAY - RIGHT FOOT CLINICAL: Female, 32 years old. Right foot pain. No known injury. TECHNIQUE: 3 view(s) of the foot. COMPARISON: None. FINDINGS: Calcaneal spurs. Normal visualized subtalar, talonavicular, calcaneocuboid, tarsal and tarsometatarsal articulations. Normal metatarsi. Normal metatarsophalangeal joint of the great toe. There is a bipartite tibial sesamoid. Normal interphalangeal joint of the great toe. Normal phalanges of the great toe. Normal second through fifth metatarsophalangeal joints. Normal interphalangeal joints and phalanges of the lesser toes. The soft tissue structures are unremarkable. RAD/Foot min 3 Views IMPRESSION: Calcaneal Spurs. No acute abnormality is seen. Electronically Signed: Isai Adhikari MD at 10:22 EDT ,
== END | disposition home or self-care (01) ==
PROVIDERS: PCP Internal Medicine; Referring Provider Physician Assistant; Visit Provider Physician Assistant
DX: M79.671 Pain in right foot (principal)
CPT/HCPCS: 73630

== ENCOUNTER → 2023-11-26 | Outpatient (CLI) | payer MEDICAID, SELFPAY ==
--- NOTE | 2023-11-26 13:52 | US_ITS ---
STUDY: ULTRASOUND OF THE FEMALE PELVIS - COMPLETE REASON FOR EXAM: Female, 33 years old. Abnormal uterine bleeding LMP: October 01, 2023. TECHNIQUE: Transabdominal and Transvaginal TECHNICAL QUALITY: Adequate. COMPARISON: Comparison is made with prior study dated September 19, 2022. FINDINGS: The uterus is anteverted and is in a midline position. The uterus measures 10.5 cm x 7.1 cm x 5.1 cm. There is a Nabothian cyst of the cervix. The endometrium measures 14.7 mm in thickness, and is heterogeneous (striated). There is no demonstrated endometrial mass. There is no demonstrated myometrial mass. I.U.D. - The patient does not have an I.U.D. The right ovary is visualized. The right ovary measures 4.6 cm x 3.2 cm x 2.4 cm. There is no right ovarian cyst or ovarian mass. There is no visualized right adnexal mass or complex lesion. There is normal arterial and normal venous vascularity. The left ovary is visualized. The left ovary measures 3.8 cm x 3.7 cm x 3.2 cm. There is a 3.5 cm x 2.5 cm x 2 cm cyst. There is no visualized left adnexal mass or complex lesion. There is normal arterial and normal venous vascularity. There is no fluid in the cul-de-sac. The pre void volume of the bladder was 305 ml. Polycystic ovary disease: No. US/Pelvic w/ Transvaginal IMPRESSION: Heterogeneous thickening of the endometrium. 3.5 cm x 2.5 cm x 2 2 cm left ovarian cyst. Electronically Signed: Isai Adhikari MD at 15:51 EST ,
== END | disposition home or self-care (01) ==
LOC: US 13:51
PROVIDERS: PCP Internal Medicine; Referring Provider Obstetrics & Gynecology; Visit Provider Obstetrics & Gynecology
DX: N91.2 Amenorrhea, unspecified (principal)
CPT/HCPCS: 76830; 76856

== ENCOUNTER → 2024-02-28 | Outpatient (CLI) | payer MEDICAID, SELFPAY ==
[2024-02-28 14:50] LABS: hCG Titer Quant., Serum < 1 mIU/mL (1-3)
== END | disposition home or self-care (01) ==
PROVIDERS: PCP Internal Medicine; Referring Provider Obstetrics & Gynecology; Visit Provider Obstetrics & Gynecology
DX: N91.2 Amenorrhea, unspecified (principal)
CPT/HCPCS: 36415; 84702

== ENCOUNTER → 2024-03-10 | Outpatient (CLI) | payer MEDICAID, SELFPAY ==
[2024-03-13 16:09] LABS: Anti-Mullerian Hormone,Serum 2.73 ng/mL (.)
[2024-03-14 03:16] LABS: Follicle Stimulating Hormone 3.5 mIU/mL; Luteinizing Hormone 2.4 mIU/mL; Thyroid Stim Hormone (TSH) 1.21 uIU/mL (0.358-3.74)
== END | disposition home or self-care (01) ==
LOC: PAVLAB 10:46
PROVIDERS: PCP Internal Medicine; Referring Provider Obstetrics & Gynecology; Visit Provider Obstetrics & Gynecology
DX: N91.2 Amenorrhea, unspecified (principal)
CPT/HCPCS: 36415; 83001; 83002; 83516; 84443

== ENCOUNTER 2024-04-19 12:24 | Emergency (ER) | payer MEDICAID, SELFPAY ==
[2024-04-19 12:25] VITALS: BP 164/87; PULSE 103; RESP 16; TEMP 36.2; O2SAT 99; BMI 51.5
--- NOTE | 2024-04-19 12:55 | CT_ITS ---
HISTORY: headache. TECHNIQUE: Multiple axial images were obtained of the head without intravenous contrast. A radiation dose optimization technique was used for this scan. 246 images. COMPARISON: 01/04/2021. FINDINGS: BRAIN PARENCHYMA: No significant attenuation abnormality. No acute intra-axial hemorrhage. CSF SPACES: Cerebral ventricles, cortical sulci, and other extra-axial CSF spaces within normal limits in size for age. No midline shift or other significant mass effect. No acute extra-axial hemorrhage. OTHER: Intact calvarium. No significant air fluid levels in the paranasal sinuses or mastoid air cells. Unremarkable orbits. CT/Brain/Head without Contrast IMPRESSION: No acute intracranial process identified. Electronically Signed: Ne Nathan MD at 13:25 EDT ,
--- NOTE | 2024-04-19 12:55 | CT_ITS ---
HISTORY: pain. TECHNIQUE: Helically acquired images were obtained of the cervical spine without contrast. 2D reformatted images were reviewed. A radiation dose optimization technique was used for this scan. 432 images. COMPARISON: None. FINDINGS: VERTEBRAE: Vertebral body heights maintained. Posterior elements intact. ALIGNMENT: No significant anterior or posterior subluxation. Mild reversal of the cervical lordosis. INTERVERTEBRAL DISCS: Disc heights preserved. SOFT TISSUES: No prevertebral soft tissue swelling. CT/Spine Cervical without Contras IMPRESSION: No evidence for acute fracture or dislocation in the cervical spine. Electronically Signed: Ne Nathan MD at 13:22 EDT ,
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
[2024-04-19] MEDS: Ketorolac 60 MG/2 ML Vial IM (14:10)
== END 2024-04-19 14:22 | disposition home or self-care (01) ==
PROVIDERS: Emergency Provider Emergency Medicine; PCP Internal Medicine; Visit Provider Emergency Medicine
DX: S16.1XXA Strain of muscle, fascia and tendon at neck level, initial encounter (principal); R51.9 Headache, unspecified; R11.0 Nausea; V49.50XA Passenger injured in collision with unspecified motor vehicles in traffic accident, initial encounter; Z90.49 Acquired absence of other specified parts of digestive tract
CPT/HCPCS: 70450; 72125; 96372; 99282

== ENCOUNTER → 2025-01-24 | Outpatient (CLI) | payer MEDICAID, SELFPAY ==
[2025-01-29 11:08] LABS: HPV APTIMA, High Risk Negative (Negative)
== END | disposition home or self-care (01) ==
LOC: LABSPEC 16:32
PROVIDERS: PCP Internal Medicine; Referring Provider Obstetrics & Gynecology; Visit Provider Obstetrics & Gynecology
DX: Z12.4 Encounter for screening for malignant neoplasm of cervix (principal)
CPT/HCPCS: 87624; 88175; G0145

== ENCOUNTER → 2025-02-02 | Outpatient (CLI) | payer MEDICAID, SELFPAY ==
--- NOTE | 2025-02-02 14:13 | US_ITS ---
PROCEDURE: PELVIC W/ TRANSVAGINAL 02/02/2025 REASON FOR EXAM: POSTCOITAL BLEEDING TECHNIQUE: Transabdominal and transvaginal pelvic ultrasound FINDINGS: Transabdominal and transvaginal imaging The uterus measures 13.2 x 6.1 x 4.1 cm. No fibroid identified. Endometrial stripe measures 9 mm, previously 15 mm. A small appearing nabothian cyst is seen near the external os. The ovaries are only seen transabdominally. The right ovary measures 4.8 x 2.5 x 2.7 cm and appears within limits. The left ovary measures 5.7 x 3.1 x 2.6 cm and again contains a cyst measuring 3.1 x 2.9 x 2.7 cm, previously 3.5 x 2.5 x 2 cm. No evidence of adnexal mass. No free fluid seen. US/Pelvic w/ Transvaginal IMPRESSION: Endometrial stripe measures 9 mm, previously 15 mm. A small appearing nabothian cyst is seen near the external os. The ovaries are only seen transabdominally. The left ovary again contains a cys t measuring 3.1 x 2.9 x 2.7 cm, previously 3.5 x 2.5 x 2 cm. Reading Location: [id number]
== END | disposition home or self-care (01) ==
LOC: US 14:11
PROVIDERS: PCP Internal Medicine; Referring Provider Obstetrics & Gynecology; Visit Provider Obstetrics & Gynecology
DX: N93.0 Postcoital and contact bleeding (principal)
CPT/HCPCS: 76830; 76856

== ENCOUNTER 2025-02-16 20:41 | Emergency (ER) | payer MEDICAID, SELFPAY ==
[2025-02-16 20:43] VITALS: BP 159/94; PULSE 109; RESP 18; TEMP 37.4; O2SAT 99; BMI 54.7
--- NOTE | 2025-02-16 20:52 | EDS_ITS ---
HPI History of Present Illness Chief Complaint: General Illness Informant: patient Narrative Narrative: 34-year-old female states she woke up this morning not feeling well and over the course of the day she has developed a sore throat, headache, fevers and chills that initially were better with Tylenol but now the Tylenol is wearing off. Denies any cough. No known sick contacts. No focal neurologic symptoms. No earache. No sinus pressure/pain. No vision changes. PFSH PFSH Medical History Plantar fasciitis, right Right foot sprain Rheumatoid arthritis Asthma PCOS (polycystic ovarian syndrome) Home Medications ?Medication ?Instructions ?Recorded ?Last Taken ?Type PNV-iron 29 mg-folic acid 1 1 pkg PO DAILY SUPPLEMENT #60 ea 01/26/25 Unknown Rx [id number] 200 mg oral combo pack (Complete DHA) amoxicillin 500 mg tablet 500 mg PO TID #30 tabs 02/16 Unknown Rx Allergy/AdvReac Type Severity Reaction Status Date / Time codeine AdvReac Other Verified 02/16/25 20:45 Family History Grandfather Diabetes Mother Hypertension Hyperlipidemia Metabolic syndrome Surgical History Hx of cholecystectomy delivery delivered History of tonsillectomy H/O knee surgery Social History adopted: No household members: spouse and children housing: house number of children: 4 current occupational status: employed 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 [employer] current occupational exposures/hazards: No pets and animals: Yes pets and animals: dog(s) history of recent travel: No sexually active: Yes Smoking Status: Never smoker alcohol intake: never substance use type: does not use well-balanced diet: daily or most days caffeine: No eating out: rarely or never during the past year weight has: remained stable what type of physical activity do you participate in: walking frequency: 5-6 times per week duration: 15-30 minutes/day adri/evangelical: None seatbelt use: always do you feel safe at home: Yes additional social history: Patient works at [employer] ROS ED Constitutional Constitutional ED: Reports chills and fever(s) Eyes Eyes: Denies change in vision or diplopia ENT ENT ED: Reports sore throat; Denies ear pain or rhinorrhea Cardiovascular Cardiovascular: Denies chest pain or palpitations Respiratory/Chest Respiratory/Chest: Denies cough or dyspnea Gastrointestinal Gastrointestinal: Denies abdominal pain, diarrhea, nausea or vomiting Genitourinary Genitourinary ED: Denies dysuria or hematuria Musculoskeletal Musculoskeletal: Denies back pain or neck pain Integumentary Denies abscess or rash Neurologic Neurologic: Reports headache(s); Denies paresthesias or weakness Psychiatric Psychiatric: Denies suicidal thoughts EXAM Physical Exam Const Vital Signs: 02/16/25 20:43 02/16/25 21:02 Temperature 99.3 F H Temperature Source Oral Pulse Rate 109 H Respiratory Rate 18 Respiratory Effort Normal Respiratory Pattern Normal Blood Pressure 159/94 H Blood Pressure Mean 115 Pulse Ox 99 Oxygen Delivery Method Room Air Positive well nourished and well developed General Appearance ED: well developed and NAD HEENT Reports moist mucous membranes; Denies TM's clear HEENT Narrative: Mild posterior oropharynx erythema. No trismus. No asymmetry. No tonsillar edema or exudates. Uvula erythematous but otherwise normal. Floor of mouth soft nondistended normal tongue with no elevation. normocephalic and atraumatic Tympanic Membrane ED: Negative for TM's clear Eyes PERRL and EOMs intact bilaterally Neck full ROM, no lymphadenopathy and supple Resp normal respiratory effort Back/Spine General Back: other FROM Neuro oriented x3, CN's II-XII intact bilaterally and no sensory deficits noted Sensorium / Orientation: awake and alert Motor Exam: strength 5/5 throughout Skin no rashes or lesions noted and no wounds MDM MDM MDM Narrative Medical decision making narrative: Vital signs noted. Am not concerned about the patient having pneumonia or COVID since prevalence has been extremely low in the last several months, this could be strep but otherwise likely viral if not strep. She was given ibuprofen and we did a strep swab which was positive. She is feeling better after the ibuprofen. Started on amoxicillin I will give her prescription along with supportive care instructions. Discharge Plan Triage Chief Complaint: General Illness ED Provider: Markus Woo Dx/Rx/DC Orders Clinical Impression: Acute streptococcal pharyngitis Instructions: ED Pharyngitis, Strep (Confirmed) Prescriptions: New amoxicillin 500 mg tablet 500 mg PO TID Qty: 30 0RF No Action Complete Radha DHA 29 mg iron- 1 mg-200 mg combo pack 1 pkg PO DAILY Qty: 60 6RF Primary Care Provider: Sonia Davila Referrals: Sonia Davila MD [Primary Care Provider] - As Needed Print Language: Tajik Disposition Disposition: Home, Self Care
[2025-02-16] MEDS: Ibuprofen 600 MG Tablet PO (20:59)
[2025-02-16] MEDS: AMOXICILLIN 500 MG CAPSULE PO (22:20)
[2025-02-16 22:21] VITALS: PULSE 100; RESP 18; TEMP 37.3; O2SAT 99
== END 2025-02-16 22:22 | disposition home or self-care (01) ==
PROVIDERS: Emergency Provider Emergency Medicine; PCP Internal Medicine; Visit Provider Emergency Medicine
DX: J02.0 Streptococcal pharyngitis (principal); Z90.49 Acquired absence of other specified parts of digestive tract
CPT/HCPCS: 87651; 99283

== ENCOUNTER 2025-04-09 12:16 | Emergency (ER) | payer MEDICAID, SELFPAY ==
[2025-04-09 12:17] VITALS: BP 162/90; PULSE 86; RESP 18; TEMP 35.9; O2SAT 100; BMI 54.5
--- NOTE | 2025-04-09 13:00 | CT_ITS ---
PROCEDURE: BRAIN/HEAD WITHOUT CONTRAST 04/09/2025 REASON FOR EXAM: SEVERE BIFRONTAL OCCIPITAL VELIZ TECHNIQUE: BRAIN/HEAD WITHOUT CONTRAST Coronal and Sagittal reconstruction series were provided. One or more dose reduction techniques were used (e.g., Automated exposure control, adjustment of the mA and/or kV according to patient size, use of iterative reconstruction technique. RADIATION DOSE SUMMARY: CTDlvol: 44.99 mGy DLP: 796.11 mGycm COMPARISON: None FINDINGS: Brain: Normal CSF Spaces: Normal Sinuses/Mastoids: Clear at visualized levels Bones: Unremarkable CT/Brain/Head without Contrast IMPRESSION: NORMAL NONCONTRAST HEAD CT. Reading Location: [place] [address]
[2025-04-09 13:03] LABS: Hematocrit 40.5 % (37-47); Hemoglobin 13.5 g/dL (12.0-15.0); Immature Granulocytes Count 0.040 X10^3/uL (0.0-0.0); Mean Corp Hgb Conc 33.3 g/dL (32-36); Mean Corpuscular Volume 81.3 fL (81-99); Mean Platelet Vol. 10.4 fl (6.2-12.0); NRBC Flagged by Analyzer 0 % (0-5); Platelet Count 260 K/mm3 (150-450); RBC Distribution Width CV 13.7 % (11.6-14.6); RBC Distribution Width SD 40.1 fl (35.1-43.9); Red Blood Count 4.98 M/mm3 (4.2-5.4); White Blood Count 7.5 K/mm3 (4.4-11.0)
[2025-04-09] MEDS: 0.9% Normal Saline (1000mL) 1,000 ML 999 ML IV (13:12)
[2025-04-09 13:31] LABS: Anion Gap 10 (5-15); BUN 10 mg/dL (4-19); BUN/Creat Ratio 17.9 RATIO (10-20); Calcium,Total 8.8 mg/dL (7.6-11.0); Carbon Dioxide 24.7 mmol/L (21.0-32.0); Chloride 103 mmol/L (98-108); Estimated Creatinine Clearance 205.92 ml/min (50-250); Glucose 122 mg/dL (70-99); Potassium 3.7 mmol/L (3.3-5.1)
--- NOTE | 2025-04-09 13:59 | EDS_ITS ---
HPI History of Present Illness Chief Complaint: Headache Informant: patient Narrative Narrative: Patient awoke this morning with a terrible bifrontal and occipital headache that is also associated with photophobia, phonophobia, nausea, vomiting. No visual disturbance. No peripheral neurologic lateralizing symptoms such as numbness or weakness. No recent illness. No recent head injury. She states her neck hurts to move and is sore, she denies an obvious reason for neck strain recently. She does not usually get headaches. She does not have a history of migraines that she knows of. [facility] Medical History Plantar fasciitis, right Right foot sprain Rheumatoid arthritis Asthma PCOS (polycystic ovarian syndrome) Home Medications ?Medication ?Instructions ?Recorded ?Last Taken ?Type loratadine 10 mg tablet 10 mg PO DAILY 04/09/2503/27 History Allergy/AdvReac Type Severity Reaction Status Date / Time codeine AdvReac Other Verified 04/09/25 12:16 Family History Grandfather Diabetes Mother Hypertension Hyperlipidemia Metabolic syndrome Surgical History Hx of cholecystectomy delivery delivered History of tonsillectomy H/O knee surgery Social History adopted: No household members: spouse and children housing: house number of children: 4 current occupational status: employed 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- [employer] current occupational exposures/hazards: No pets and animals: Yes pets and animals: dog(s) history of recent travel: No sexually active: Yes Smoking Status: Never smoker alcohol intake: never substance use type: does not use well-balanced diet: daily or most days caffeine: No eating out: rarely or never during the past year weight has: remained stable what type of physical activity do you participate in: walking frequency: 5-6 times per week duration: 15-30 minutes/day adri/roman catholic: None seatbelt use: always do you feel safe at home: Yes additional social history: Patient works at [employer] ED Constitutional Constitutional ED: Denies chills or fever(s) Eyes Eyes: Reports photophobia; Denies change in vision or diplopia ENT ENT ED: Denies ear pain or sore throat Cardiovascular Cardiovascular: Denies chest pain or palpitations Respiratory/Chest Respiratory/Chest: Denies cough or dyspnea Gastrointestinal Gastrointestinal: Reports nausea and vomiting; Denies abdominal pain or diarrhea Genitourinary Genitourinary ED: Denies dysuria or urinary frequency Musculoskeletal Musculoskeletal: Reports neck pain; Denies back pain or myalgias Integumentary Denies abscess or rash Neurologic Neurologic: Reports headache(s); Denies paresthesias or weakness EXAM Physical Exam Const Vital Signs: 04/09/25 12:17 Temperature 96.6 F L Temperature Source Temporal Pulse Rate 86 Respiratory Rate 18 Blood Pressure 162/90 H Blood Pressure Mean 114 Pulse Ox 100 Oxygen Delivery Method Room Air Positive well nourished, well developed and obese General Appearance ED: well developed and NAD Nutritional Appearance: obese HEENT Reports normocephalic and moist mucous membranes atraumatic Eyes PERRL, EOMs intact bilaterally and conjunctivae normal Eyes Narrative: photophobia Neck no lymphadenopathy, supple and no meningeal signs Neck Narrative: And no posterior lymphadenopathy. Mild paraspinal cervical musculature tenderness at the base of the head. Resp normal respiratory effort and clear to auscultation bilaterally GI non-tender and non-distended Palpation: soft Extremity normal to inspection and full ROM Neuro oriented x3 and CN's II-XII intact bilaterally Sensorium / Orientation: awake and alert Speech: speech normal Gait (Neuro): normal gait Motor Exam: strength 5/5 throughout Psych mental status grossly normal Skin Lesions: no lesions Rashes: no rashes MDM MDM MDM Narrative Medical decision making narrative: Given that the patient has never had a headache like this before woke up with a severe headache that is also occipital, subarachnoid hemorrhage was considered, so I performed a CT of the head, my interpretation negative. Radiology in agreement. Also ran basic labs, there is no sign of hypercalcemia to suggest primary hyperparathyroidism that can cause headaches. She has had no other symptoms of this as well. Her symptoms are consistent with a migraine, so while performing this workup she was given 6 mg subcutaneous Imitrex and 5 mg IV metoclopramide as well as some IV fluids. She felt much better on reevaluation, although she still has a bit of a headache. She was given Toradol 30 mg in addition, prior to discharge home, I do not think she needs an LP at this time given the significant improvement with migraine medications. She is comfortable with this plan. It is noted that she has a history of PCOS and as we discussed hormones can sometimes be responsible for migraine headaches as can neck strains which she does not have necessarily a good history for. Lab Data Attestation: I reviewed the patient's lab results. Labs: Laboratory Results - last 24 hr 04/09/25 12:30 WBC 7.5 RBC 4.98 Hgb 13.5 Hct 40.5 MCV 81.3 MCH 27.1 MCHC 33.3 RDW Std Deviation 40.1 RDW Coeff of Delfino 13.7 Plt Count 260 MPV 10.4 Immature Gran % (Auto) 0.500 Neut % (Auto) 70.4 H Lymph % (Auto) 21.8 [place] % (Auto) 5.3 Eos % (Auto) 1.5 Baso % (Auto) 0.5 Absolute Neuts (auto) 5.3 Absolute Lymphs (auto) 1.64 Nucleated RBC % 0 Sodium 138 Potassium 3.7 Chloride 103 Carbon Dioxide 24.7 Anion Gap 10 BUN 10 Creatinine 0.56 L Estim Creat Clear Calc 205.92 Est GFR (MDRD) Non-Af 124 BUN/Creatinine Ratio 17.9 Glucose 122 H Calcium 8.8 Radiography Diagnostic Testing: Clinical Impression(s) from Imaging Studies Brain CT 04/09/25 13:00 IMPRESSION: NORMAL NONCONTRAST HEAD CT. Reading Location: [place] [id number] Discharge Plan Triage Chief Complaint: Headache ED Provider: Markus Woo Dx/Rx/DC Orders Clinical Impression: Headache, migraine, History of PCOS Instructions: Migraine Triggers Prescriptions: No Action loratadine 10 mg tablet 10 mg PO DAILY Primary Care Provider: Sonia Davila Referrals: Sonia Davila MD [Primary Care Provider] - 1 Week if not improving Activity Restrictions/Additional Instructions: PCOS can sometimes cause hormone imbalances, and estrogen/progesterone imbalances can also sometimes cause migraines. If you continue to have recur rent headaches, speak with your doctor about possible treatments for this. Print Language: [place] Islander Disposition Disposition: Home, Self Care
[2025-04-09] MEDS: Ketorolac 30 MG/ML Syringe IV (14:05)
[2025-04-09 14:16] VITALS: BP 132/74; PULSE 84; RESP 17; TEMP 36.7; O2SAT 97
== END 2025-04-09 14:17 | disposition home or self-care (01) ==
PROVIDERS: Emergency Provider Emergency Medicine; PCP Internal Medicine; Referring Provider Emergency Medicine; Visit Provider Emergency Medicine
DX: G43.909 Migraine, unspecified, not intractable, without status migrainosus (principal); Z87.42 Personal history of other diseases of the female genital tract; Z90.49 Acquired absence of other specified parts of digestive tract
CPT/HCPCS: 70450; 80048; 85025; 96361; 96372; 96374; 96375; 99283; A4216; J3030